=== PATIENT | male | born 1970 | race American Indian/Alaskan Native ===

== ENCOUNTER 2020-02-22 11:49 | Emergency (ER) | payer SELFPAY ==
--- NOTE | 2020-02-22 12:19 | Event Note ---
ED Screening Note Date of service: 02/22/20 Time: 12:16 ED Screening Note: 49-year-old male brought in states that he has dizziness x1 week. Denies any chest pain shortness of breathing no nausea no vomiting or abdominal pain. Admits to headache no blurred vision. This initial assessment/diagnostic orders/clinical plan/treatment(s) is/are subject to change based on patients health status, clinical progression and re- assessment by fellow clinical providers in the ED. Further treatment and workup at subsequent clinical providers discretion. Patient/guardian urged not to elope from the ED as their condition may be serious if not clinically assessed and managed. Initial orders include:
[2020-02-22 13:35] LABS: Basophils # (Auto) 0.1 K/mm3 (0.0-0.1); Basophils % (Auto) 1.2 % (0.0-1.8); Eosinophils # (Auto) 0.4 K/mm3 (0.0-0.4); Eosinophils % (Auto) 7.5 % (0.0-4.3); Hemoglobin 11.5 gm/dl (11.8-15.2); Lymphocytes # (Auto) 1.4 K/mm3 (1.2-5.4); Lymphocytes % (Auto) 29.4 % (13.4-35.0); Mean Corpuscular HGB Conc 33 % (32-34); Mean Corpuscular Volume 83 fl (84-94); Monocytes # (Auto) 0.5 K/mm3 (0.0-0.8); Monocytes % (Auto) 9.6 % (0.0-7.3); Platelet Count 229 K/mm3 (140-440); Red Blood Count 4.24 M/mm3 (3.65-5.03); Red Cell Distribution Width 13.5 % (13.2-15.2)
[2020-02-22 13:47] LABS: Albumin 4.3 g/dL (3.9-5); Calcium 8.8 mg/dL (8.4-10.2)
[2020-02-22] MEDS ORDERED: POTASSIUM CHLORIDE ER 20 MEQ TAB PO ONE ×2 (14:49→21:46)
[2020-02-22] MEDS ORDERED: HYDROcodone/ACETAMINOPHEN 5-325 MG TAB PO STA (15:07)
--- NOTE | 2020-02-22 15:19 | Emergency Department Report ---
ED Dizziness HPI - General Chief Complaint: Dizziness Stated Complaint: DIZZINESS,SICK Time Seen by Provider: 02/22/20 14:48 Source: patient Mode of arrival: Ambulatory Limitations: No Limitations - History of Present Illness Initial Comments: 49-year-old -[place] male past medical history of hypertension and end- stage renal disease requiring dialysis was last seen at dialysis today presents emergency department complaining of a dull throbbing bifrontal headache which is been present for the last week associated with dizziness acute. Reports no chest pain, no palpitations, no fever, chills, sweats, no nausea, no vomiting. He reports no scotomas. MD Complaint: dizziness Timing: sudden onset Description: "room spinning" History of Same: No History of Trauma: No Severity: mild, moderate Improves With: nothing Worsens With: nothing Associated Symptoms: denies: ataxia, chest pain, confusion, fever/chills, loss o f appetite, seizure, syncope, weakness - Related Data Previous Rx's Medication Instructions Recorded Last Taken Type carvediloL [Coreg] 6.25 mg PO BID #60 tablet 04/25/13 Unknown Rx Allergies Allergy/AdvReac Type Severity Reaction Status Date / Time No Known Allergies Allergy Unverified 04/20/13 09:48 ED Review of Systems ROS: Stated complaint: DIZZINESS,SICK Other details as noted in HPI Comment: All other systems reviewed and negative ED Past Medical Hx - Past Medical History Previous Medical History?: Yes Hx Hypertension: Yes Hx Congestive Heart Failure: No Hx Diabetes: No Hx Renal Disease: Yes (Dialysis (MWF)) Hx Asthma: No Hx COPD: No Additional medical history: Brugada Syndrome, ventral abdominal hernia - Surgical History Past Surgical History?: No - Social History Smoking Status: Never Smoker Substance Use Type: None - Medications Home Medications: Home Medications Medication Instructions Recorded Confirmed Last Taken Type carvediloL [Coreg] 6.25 mg PO BID #60 tablet 04/25/13 Unknown Rx ED Physical Exam - General Limitations: No Limitations General appearance: alert, in no apparent distress - Head Head exam: Present: atraumatic, normocephalic - Eye Eye exam: Present: normal appearance, PERRL, EOMI Pupils: Present: normal accommodation - ENT ENT exam: Present: normal exam, mucous membranes moist, normal external ear exam. Absent: normal orophraynx, mucous membranes dry - Neck Neck exam: Present: normal inspection, full ROM. Absent: tenderness - Respiratory Respiratory exam: Present: normal lung sounds bilaterally. Absent: respiratory distress, wheezes, rhonchi, stridor - Cardiovascular Cardiovascular Exam: Present: regular rate, normal rhythm. Absent: bradycardia, tachycardia, systolic murmur, diastolic murmur, rubs, gallop - GI/Abdominal GI/Abdominal exam: Present: soft, normal bowel sounds. Absent: distended, ten derness, guarding - Rectal Rectal exam: Present: deferred. Absent: normal inspection, normal rectal tone - Extremities Exam Extremities exam: Present: normal inspection - Back Exam Back exam: Present: normal inspection, full ROM, muscle spasm - Neurological Exam Neurological exam: Present: alert, oriented X3, CN II-XII intact - Psychiatric Psychiatric exam: Present: normal affect, normal mood - Skin Skin exam: Present: warm, dry, intact, normal color. Absent: rash ED Course Vital Signs 02/22/20 12:18 Temperature 97.8 F Pulse Rate 73 Respiratory 18 Rate Blood Pressure 141/80 O2 Sat by Pulse 97 Oximetry ED Medical Decision Making - Lab Data Result diagrams: 02/22/20 12:48 02/22/20 12:48 - Radiology Data [facility] [address] [place] [address] Cat Scan Report Signed Patient: CHRISTIE HENRIQUEZ MR#: [id number] 8 : 1970 Acct:[id number] Age/Sex: 49 / M ADM Date: 02/22/20 Loc: ED Attending Dr: Ordering Physician: ALEM PEREA Date of Service: 02/22/20 Procedure(s): CT head/brain wo con Accession Number(s): [id number] cc: ALEM PEREA CT head/brain wo con INDICATION / CLINICAL INFORMATION: 49 years Male; headache. TECHNIQUE: Routine CT head without contrast. All CT scans at this location are performed using CT dose reduction for ALARA by means of automated exposure control. COMPARISON: 04/20/2013 FINDINGS: BRAIN / INTRACRANIAL CONTENTS: Multiple, small lacunar infarcts seen in the anterior gangliocapsular regions. These findings are new from prior, but have a chronic appearance. It would be difficult to evaluate for a small focus of acute ischemia without diffusion imaging by MRI. Otherwise, no acute hemorrhage, mass effect, midline shift, hydrocephalus, or acute, large territorial infarct. No signs of significant atrophy or chronic infarct. Mild, nonspecific white matter disease noted, which has progressed from prior, as well. CRANIOCERVICAL JUNCTION: No significant abnormality. ORBITS: No significant abnormality of visualized orbits. SINUSES / MASTOIDS: Small air-fluid level seen in the right sphenoid sinus. Mild mucosal thickening seen in the ethmoids as well. ADDITIONAL FINDINGS: None. IMPRESSION: 1. Progression and white matter and gangliocapsular disease as described above. Follow-up with diffusion imaging by MRI, as clinically warranted. 2. Otherwise, no focal mass, hemorrhage, hydrocephalus, or acute, large infarct appreciated. Signer Name: Chris Guerra MD, III Signed: 02/22/2020 4:33 PM Workstation Name: [id number] Transcribed By: Dictated By: Chris Guerra MD Electronically Authenticated By: Chris Guerra MD Signed Date/Time: 02/22/20 163 DD/ 28 TD/TT: - Medical Decision Making This patient presents with a headache. Differential diagnosis includes migraine versus tension type headache. No headache red flags. Neurologic exam without evidence of meningismus, focal neurologic findings.Based on the patient's history and physical there is very low clinical suspicion for significant intracranial pathology. The headache was NOT sudden onset, NOT maximal at onset, there are NO neurologic findings, the patient does NOT have a fever, the patient does NOT have any jaw claudication, the patient does NOT endorse a clotting disorder, patient DENIES any trauma or eye pain and the headache is NOT associated with dizziness or ataxia. Presentation not consistent with acute intracranial bleed to include SAH (lack of risk factors, headache history). 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 Presentation not consistent with other acute, emergent causes of headache at this time. Plan to treat symptomatically with pain medication. No indication for imaging/LP at this time. Plan: pain medication, CT brain shows chronic infarct changes which may need further evaluation with an MRI at a later date. He remained neurologically stable and intact throughout his entire emergency department visit here today. No signs of any neurological deficit. I will provide him with a copy of his CT scan report and advised him explicitly the need to follow-up with neurology for further evaluation and treatment options but advised him to start with his primary care provider to guide and follow along with him in this process. Also advised him on the on the need for compliance with his dialysis. It is very likely this is a postdialysis headache him and post dialysis presyncope given the onset. Critical care attestation.: If time is entered above; I have spent that time in minutes in the direct care of this critically ill patient, excluding procedure time. ED Disposition Clinical Impression: Cephalgia Disposition: DC-01 TO HOME OR SELFCARE Is pt being admited?: No Does the pt Need Aspirin: No Condition: Stable Instructions: General Headache Without Cause Referrals: PRIMARY CARE, [Primary Care Provider] - 3-5 Days Forms: Work/School Release Form(ED)
--- NOTE | 2020-02-22 16:37 | Cat Scan Report ---
CT head/brain wo con INDICATION / CLINICAL INFORMATION: 49 years Male; headache. TECHNIQUE: Routine CT head without contrast. All CT scans at this location are performed using CT dos e reduction for ALARA by means of automated exposure control. COMPARISON: 04/20/2013 FINDINGS: BRAIN / INTRACRANIAL CONTENTS: Multiple, small lacunar infarcts seen in the anterior gangliocapsular regions. These findings are new from prior, but have a chronic appearance. It would be difficult to evaluate for a small focus of acute ischemia without diffusion imaging by MR I. Otherwise, no acute hemorrhage, mass effect, midline shift, hydrocephalus, or acute, large territori al infarct. No signs of significant atrophy or chronic infarct. Mild, nonspecific white matter diseas e noted, which has progressed from prior, as well. CRANIOCERVICAL JUNCTION: No significant abnormality. ORBITS: No significant abnormality of visualized orbits. SINUSES / MASTOIDS: Small air-fluid level seen in the right sphenoid sinus. Mild mucosal thickening s een in the ethmoids as well. ADDITIONAL FINDINGS: None. IMPRESSION: 1. Progression and white matter and gangliocapsular disease as described above. Follow-up with diffus ion imaging by MRI, as clinically warranted. 2. Otherwise, no focal mass, hemorrhage, hydrocephalus, or acute, large infarct appreciated. Signer Name: Chris Guerra MD, III Signed: 02/22/2020 4:33 PM Workstation Name: [id number]
[2020-02-23 01:45] VITALS: BP 132/70
== END 2020-02-22 21:59 | disposition home or self-care (01) ==
LOC: ED 11:49
DX: R51.9 Headache, unspecified (principal)
CPT/HCPCS: 36415; 70450; 80053; 85025; 93005

== ENCOUNTER 2021-08-16 22:11 | Inpatient (IN) | payer OTHER ==
--- NOTE | 2021-08-16 23:38 | Emergency Department Report ---
ED General Adult HPI - General Chief complaint: Dyspnea/Respdistress Stated complaint: SOB,COUGHING UP BLOOD PUI?: No Source: patient, EMS ( EMS documentation not available at time of chart dictation ), RN notes reviewed, old records reviewed Limitations: Physical Limitation - History of Present Illness Initial comments: Nephrology: Dr. Vonda Bangura The patient is a 50-year-old gentleman, with a history of end-stage renal disease on hemodialysis, Tuesday, Tuesday, Tuesday, DVT, currently on Eliquis, history of Brugada syndrome. Patient was last dialyzed on Tuesday. He presents to the ER today with a complaint of tongue bleeding, where he believes he accidentally bit his tongue, cough, wheezing and shortness of breath. He denies physical pain at this time. -: Gradual Consistency: constant Improves with: rest Worsens with: movement - Related Data Previous Rx's Medication Instructions Recorded Last Taken Type carvediloL [Coreg] 6.25 mg PO BID #60 tablet 04/25/13 Unknown Rx Allergies Allergy/AdvReac Type Severity Reaction Status Date / Time No Known Allergies Allergy Unverified 04/20/13 09:48 ED Review of Systems ROS: Stated complaint: SOB,COUGHING UP BLOOD Other details as noted in HPI Constitutional: denies: fever Eyes: denies: eye discharge ENT: congestion. denies: epistaxis Respiratory: cough, shortness of breath, wheezing Cardiovascular: edema. denies: chest pain Gastrointestinal: denies: abdominal pain, vomiting, hematemesis, melena, hematochezia Genitourinary: denies: dysuria Musculoskeletal: denies: back pain Neurological: weakness Hematological/Lymphatic: easy bleeding ED Past Medical Hx - Past Medical History Hx Hypertension: Yes Hx Congestive Heart Failure: No Hx Diabetes: No Hx Renal Disease: Yes (Dialysis (MWF)) Hx Asthma: No Hx COPD: No Additional medical history: Brugada Syndrome, ventral abdominal hernia - Social History Smoking Status: Never Smoker Substance Use Type: None - Medications Home Medications: Home Medications Medication Instructions Recorded Confirmed Last Taken Type carvediloL [Coreg] 6.25 mg PO BID #60 tablet 04/25/13 Unknown Rx ED Physical Exam - General Limitations: Physical Limitation General appearance: alert, anxious, in distress - Head Head exam: Present: atraumatic, normocephalic - Eye Eye exam: Present: normal appearance, EOMI. Absent: nystagmus - ENT ENT exam: Present: normal exam, normal orophraynx, mucous membranes moist, normal external ear exam, other (There is superficial bleeding noted to the dorsal aspect of the anterior) - Neck Neck exam: Present: normal inspection, full ROM. Absent: tenderness, meningismus - Respiratory Respiratory exam: Present: respiratory distress, wheezes, rales, rhonchi - Cardiovascular Cardiovascular Exam: Present: regular rate, normal rhythm, normal heart sounds, JVD. Absent: bradycardia, tachycardia, irregular rhythm, systolic murmur, diastolic murmur, rubs, gallop - GI/Abdominal GI/Abdominal exam: Present: soft, hernia. Absent: distended, tenderness, guarding, rebound, rigid - Rectal Rectal exam: Present: deferred - Extremities Exam Extremities exam: Present: normal inspection, full ROM, pedal edema, other (2+ pulses noted in the bilateral upper and lower extremities. There is no palpable cord. negative Homans sign. Muscular compartments are soft. The pelvis is stable.). Absent: calf tenderness - Back Exam Back exam: Present: normal inspection. Absent: tenderness, CVA tenderness (R), CVA tenderness (L), paraspinal tenderness, vertebral tenderness - Neurological Exam Neurological exam: Present: alert, oriented X3, other (No facial droop. Tongue midline. Extraocular movements intact bilaterally. Facial sensation intact to light touch in V1, V2, V3 distribution bilaterally. 5 and a 5 strength in 4 extremities. Sensation intact to light touch in 4 extremities.). Absent: motor sensory deficit - Psychiatric Psychiatric exam: Present: anxious - Skin Skin exam: Present: warm, dry, intact, normal color. Absent: rash ED Course Vital Signs 08/17/21 08/17/21 00:05 01:02 Temperature 99 F Pulse Rate 84 77 Respiratory 20 16 Rate Blood Pressure 180/110 Blood Pressure 194/114 [Left] O2 Sat by Pulse 98 100 Oximetry - Reevaluation(s) Reevaluation #1: 08/17/21 01:36 Differential diagnosis, including but not limited to: Flash pulmonary edema, end-stage renal disease on hemodialysis, anticoagulated, volume overload, hypertensive emergency Assessment and plan: 50-year-old gentleman, with JVD, lower extremity edema, crackles, rales, hypertensive urgency, likely flash pulmonary edema, and fluid overload. Start patient on nitroglycerin, as well as desmopressin. Patient spitting up blood from tongue, likely secondary to superficial bite on tongue, do not see obvious wound to suture, start desmopressin. Given this, would not start patient on BiPAP, but rather will start high flow high humidity nasal cannula. EKG reviewed and appreciated. Laboratory studies reviewed and appreciated. Elevated troponin is likely a type II troponin leak. Contacted covering nephrology Dr Bangura, and critical care, Dr. Valdivia Discussed the patient's history, physical, laboratory studies and imaging studi es and clinical impression. His vb net programmer will follow in consultation, and arrange for urgent he modialysis. Critical care will arrange for admission to the intensive care unit. High-dose Lasix ordered. Patient is agreeable to admission hospitalization. Hospital physician, Dr. Kohler to admit to [facility] Medical decision makin-year-old gentleman with evidence of fluid overload, hypertensive emergency, requires initiation of high flow high humidity nasal cannula, high-dose Lasix, nitroglycerin drip, urgent hemodialysis. 08/17/21 01:38 ED Medical Decision Making - Lab Data Result diagrams: 08/17/21 00:13 08/17/21 00:13 Labs 08/17/21 08/17/21 08/17/21 00:13 00:13 00:13 WBC 5.6 RBC 3.28 L Hgb 8.6 L Hct 27.5 L MCV 84 MCH 26 L MCHC 31 L RDW 20.7 H Plt Count 166 Lymph % (Auto) 8.8 L [place] % (Auto) 7.6 H Eos % (Auto) 2.3 Baso % (Auto) 1.1 Lymph # (Auto) 0.5 L [place] # (Auto) 0.4 Eos # (Auto) 0.1 Baso # (Auto) 0.1 Seg Neutrophils % 80.2 H Seg Neutrophils # 4.5 PT 14.1 INR 0.98 APTT 28.1 Albumin/Globulin Ratio 1.5 Lab Results 08/17/21 08/17/21 08/17/21 Range/Units 00:13 00:13 00:13 WBC 5.6 (4.5-11.0) K/mm3 RBC 3.28 L (3.65-5.03) M/mm3 Hgb 8.6 L (11.8-15.2) gm/dl Hct 27.5 L (35.5-45.6) % MCV 84 (84-94) fl MCH 26 L (28-32) pg MCHC 31 L (32-34) % RDW 20.7 H (13.2-15.2) % Plt Count 166 (140-440) K/mm3 Lymph % (Auto) 8.8 L (13.4-35.0) % [place] % (Auto) 7.6 H (0.0-7.3) % Eos % (Auto) 2.3 (0.0-4.3) % Baso % (Auto) 1.1 (0.0-1.8) % Lymph # (Auto) 0.5 L (1.2-5.4) K/mm3 [place] # (Auto) 0.4 (0.0-0.8) K/mm3 Eos # (Auto) 0.1 (0.0-0.4) K/mm3 Baso # (Auto) 0.1 (0.0-0.1) K/mm3 Seg Neutrophils % 80.2 H (40.0-70.0) % Seg Neutrophils # 4.5 (1.8-7.7) K/mm3 PT 14.1 (12.2-14.9) Sec. INR 0.98 (0.87-1.13) APTT 28.1 (24.2-36.6) Sec. Albumin/Globulin Ratio 1.5 % Vital Signs 08/17/21 00:05 Temperature 99 F Pulse Rate 84 Lab Results 08/17/21 08/17/21 08/17/21 Range/Units 00:13 00:13 00:13 WBC 5.6 (4.5-11.0) K/mm3 RBC 3.28 L (3.65-5.03) M/mm3 Hgb 8.6 L (11.8-15.2) gm/dl Hct 27.5 L (35.5-45.6) % MCV 84 (84-94) fl MCH 26 L (28-32) pg MCHC 31 L (32-34) % RDW 20.7 H (13.2-15.2) % Plt Count 166 (140-440) K/mm3 Lymph % (Auto) 8.8 L (13.4-35.0) % [place] % (Auto) 7.6 H (0.0-7.3) % Eos % (Auto) 2.3 (0.0-4.3) % Baso % (Auto) 1.1 (0.0-1.8) % Lymph # (Auto) 0.5 L (1.2-5.4) K/mm3 [place] # (Auto) 0.4 (0.0-0.8) K/mm3 Eos # (Auto) 0.1 (0.0-0.4) K/mm3 Baso # (Auto) 0.1 (0.0-0.1) K/mm3 Seg Neutrophils % 80.2 H (40.0-70.0) % Seg Neutrophils # 4.5 (1.8-7.7) K/mm3 PT 14.1 (12.2-14.9) Sec. INR 0.98 (0.87-1.13) APTT 28.1 (24.2-36.6) Sec. Sodium 132 L (137-145) mmol/L Potassium 3.6 (3.6-5.0) mmol/L Chloride 91.2 L (98-107) mmol/L Carbon Dioxide 24 (22-30) mmol/L Anion Gap 20 mmol/L BUN 44 H (9-20) mg/dL Creatinine 11.0 H (0.8-1.3) mg/dL Estimated GFR 6 ml/min BUN/Creatinine Ratio 4 % Glucose 89 (75-100) mg/dL Calcium 8.6 (8.4-10.2) mg/dL Magnesium 2.60 H (1.7-2.3) mg/dL Total Bilirubin 0.60 (0.1-1.2) mg/dL AST 13 (5-40) units/L ALT 12 (7-56) units/L Alkaline Phosphatase 152 H (35-129) units/L Total Creatine Kinase 329 H (55-170) units/L Troponin T 0.075 H (0.00-0.029) ng/mL Total Protein 6.9 (6.3-8.2) g/dL Albumin 4.1 (3.9-5) g/dL Albumin/Globulin Ratio 1.5 % - EKG Data -: EKG Interpreted by Ct EKG shows normal: sinus rhythm - EKG Data 08/17/21 00:56 The EKG is interpreted at 23: 58 Sinus rhythm, 77 bpm. Normal axis, normal P wave axis, PVCs, QTC 4 6 2 ms, IN interval, 210 ms. There is poor R wave progression. This is not a STEMI - Radiology Data Radiology results: pending, report reviewed, image reviewed CHEST 1 VIEW 08/16/2021 11:18 PM INDICATION / CLINICAL INFORMATION: Dyspnea. COMPARISON: 04/20/2013 FINDINGS: SUPPORT DEVICES: Left IJ catheter terminating in the mid SVC. HEART / MEDIASTINUM: There is cardiomegaly LUNGS / PLEURA: Pulmonary vascular indistinctness and cephalization. Increased interstitial prominence. There is increased opacification within the right lower lobe. No pneumothorax. ADDITIONAL FINDINGS: No significant additional findings. IMP RESSION: 1. Cardiomegaly with moderate severe pulmonary edema. 2. Opacification within the right lower lobe which may represent atelectasis versus infiltrate. Signer Name: Kirk Vizcaino DO Signed: 08/16/2021 11:21 PM Workstation Name: [id number] Critical Care Time: Yes Critical care time in (mins) excluding proc time.: 35 Critical care attestation.: If time is entered above; I have spent that time in minutes in the direct care of this critically ill patient, excluding procedure time. ED Disposition Clinical Impression: Hypertensive emergency, End stage renal disease, Pulmonary edema, Anticoagulated, Hemorrhage of tongue Disposition: ADMITTED INPATIENT Is pt being admited?: Yes Does the pt Need Aspirin: No Condition: Critical Instructions: Pulmonary Edema (ED), Hypertension (ED) Referrals: KATE GEIGER MD [Primary Care Provider] - 3-5 Days
--- NOTE | 2021-08-17 00:25 | XRay Report ---
CHEST 1 VIEW 08/16/2021 11:18 PM INDICATION / CLINICAL INFORMATION: Dyspnea. COMPARISON: 04/20/2013 FINDINGS: SUPPORT DEVICES: Left IJ catheter terminating in the mid SVC. HEART / MEDIASTINUM: There is cardiomegaly LUNGS / PLEURA: Pulmonary vascular indistinctness and cephalization. Increased interstitial prominenc e. There is increased opacification within the right lower lobe. No pneumothorax. ADDITIONAL FINDINGS: No significant additional findings. IMPRESSION: 1. Cardiomegaly with moderate severe pulmonary edema. 2. Opacification within the right lower lobe which may represent atelectasis versus infiltrate. Signer Name: Kirk Vizcaino DO Signed: 08/17/2021 12:21 AM Workstation Name: [id number]
[2021-08-17 00:39] LABS: Basophils # (Auto) 0.1 K/mm3 (0.0-0.1); Basophils % (Auto) 1.1 % (0.0-1.8); Eosinophils # (Auto) 0.1 K/mm3 (0.0-0.4); Eosinophils % (Auto) 2.3 % (0.0-4.3); Hematocrit 27.5 % (35.5-45.6); Hemoglobin 8.6 gm/dl (11.8-15.2); Lymphocytes # (Auto) 0.5 K/mm3 (1.2-5.4); Lymphocytes % (Auto) 8.8 % (13.4-35.0); Mean Corpuscular HGB Conc 31 % (32-34); Mean Corpuscular Volume 84 fl (84-94); Monocytes # (Auto) 0.4 K/mm3 (0.0-0.8); Monocytes % (Auto) 7.6 % (0.0-7.3); Platelet Count 166 K/mm3 (140-440); Red Blood Count 3.28 M/mm3 (3.65-5.03); Red Cell Distribution Width 20.7 % (13.2-15.2)
[2021-08-17 00:47] LABS: INR 0.98 (0.87-1.13); Partial Thromboplastin Time 28.1 Sec. (24.2-36.6)
[2021-08-17 00:55] LABS: Albumin 4.1 g/dL (3.9-5); Calcium 8.6 mg/dL (8.4-10.2)
[2021-08-17] MEDS ORDERED: FUROSEMIDE 40 MG/4 ML INJ IV ONE (01:09)
[2021-08-17] MEDS ORDERED: SODIUM CHLORIDE 0.9% IV ONE (01:10)
[2021-08-17] MEDS ORDERED: DESMOPRESSIN ACETATE IV ONE (01:10)
[2021-08-17] MEDS ORDERED: ALBUTEROL 2.5 MG/3 ML NEBU IH PRN (01:38)
[2021-08-17] MEDS ORDERED: ACETAMINOPHEN 325 MG TAB PO PRN (01:38)
[2021-08-17] MEDS ORDERED: MORPHINE 2 MG/1 ML INJ IV PRN (01:38)
[2021-08-17] MEDS ORDERED: HYDROmorphone 1 MG/1 ML INJ IV PRN (01:38)
[2021-08-17] MEDS ORDERED: ONDANSETRON 4 MG/2 ML INJ IV PRN (01:38)
[2021-08-17 02:00] LABS: Chol/HDL Ratio 1.59 %
[2021-08-17] MEDS: NITROGLYCERIN DRIP 50 MG/250 ML BOTTLE IV SCH (02:10)
--- NOTE | 2021-08-17 04:57 | History and Physical Report ---
History of Present Illness Date of examination: 08/17/21 Date of admission: 08/17/21 Chief complaint: Dyspnea Respiratory distress History of present illness: 50-year-old male history of end-stage renal disease on hemodialysis, Tuesday, Tuesday, Tuesday, DVT, currently on Eliquis, history of Brugada syndrome.Patient was last dialyzed on Tuesday. Patient was brought presents to the emergency room because of tongue bleeding, where he believes he accidentally bit his tongue, cough, wheezing and shortness of breath. In the emergency room patient is found to have pulmonary edema, hypertensive urgency. Patient is started on high flow nasal cannula. We consulted n ephrology for emergent dialysis. We also put the patient on nitro drip and Lasix high-dose. We consulted critical care for evaluation Past History Past Medical History: ESRD, renal failure, other (Brugada Syndrome, ventral abdominal hernia) Past Surgical History: No surgical history Social history: no significant social history Family history: hypertension Medications and Allergies Allergies Allergy/AdvReac Type Severity Reaction Status Date / Time No Known Allergies Allergy Unverified 04/20/13 09:48 Home Medications Medication Instructions Recorded Confirmed Last Taken Type carvediloL [Coreg] 6.25 mg PO BID #60 tablet 04/25/13 Unknown Rx Active Meds: Active Medications Acetaminophen (Acetaminophen 325 Mg Tab) 650 mg PO Q4H PRN PRN Reason: Pain MILD(1-3)/Fever >100.5/BOWER Albuterol (Albuterol 2.5 Mg/3 Ml Nebu) 2.5 mg IH Q3HRT PRN PRN Reason: Shortness Of Breath Albuterol/Ipratropium (Ipratropium/Albuterol Sulfate 3 Ml Ampul.Neb) 1 ampul IH Q6HRT KRISTIAN Carvedilol (Carvedilol 6.25 Mg Tab) 6.25 mg PO BID [facility] Famotidine (Famotidine 20 Mg/2 Ml Inj) 20 mg IV DAILY KRISTIAN Hydromorphone HCl (Hydromorphone 1 Mg/1 Ml Inj) 0.5 mg IV Q3H PRN PRN Reason: Pain , Severe (7-10) Nitroglycerin/Dextrose (Tridil Drip 50mg/250ml) 50 mg in 250 mls @ 3 mls/hr IV TITR KRISTIAN; Protocol Last Admin: 08/17/21 02:10 Dose: 10 mcg/min, 3 mls/hr Morphine Sulfate (Morphine 2 Mg/1 Ml Inj) 2 mg IV Q4H PRN PRN Reason: Pain, Moderate (4-6) Ondansetron HCl (Ondansetron 4 Mg/2 Ml Inj) 4 mg IV Q8H PRN PRN Reason: Nausea And Vomiting Sodium Chloride (Sodium Chloride 0.9% 10 Ml Flush Syringe) 10 ml IV BID KRISTIAN Sodium Chloride (Sodium Chloride 0.9% 10 Ml Flush Syringe) 10 ml IV PRN PRN PRN Reason: LINE FLUSH Review of Systems All systems: negative Constitutional: weakness Respiratory: cough, hemoptysis, shortness of breath, dyspnea on exertion, wheezing Exam - Constitutional Vitals: Temp Pulse Resp BP Pulse Ox 99 F 77 16 194/114 100 08/17/21 00:05 08/17/21 01:02 08/17/21 01:02 08/17/21 01:02 08/17/21 01:41 General appearance: Present: no acute distress, well-nourished - EENT Eyes: Present: PERRL ENT: hearing intact, clear oral mucosa - Neck Neck: Present: supple, normal ROM - Respiratory Respiratory effort: normal Respiratory: bilateral: diminished - Cardiovascular Heart Sounds: Present: S1 & S2. Absent: rub, click - Extremities Extremities: pulses symmetrical, No edema Peripheral Pulses: within normal limits - Abdominal General gastrointestinal: Present: soft, non-tender, non-distended, normal bowel sounds Male genitourinary: Present: normal - Integumentary Integumentary: Present: clear, warm, dry - Musculoskeletal Musculoskeletal: gait normal, strength equal bilaterally - Psychiatric Psychiatric: appropriate mood/affect, intact judgment & insight - Neurologic Neurologic: CNII-XII intact, moves all extremities HEART Score - HEART Score Troponin: Troponin T 0.075 ng/mL (0.00-0.029) H 08/17/21 00:13 Results - Labs CBC & Chem 7: 08/17/21 00:13 08/17/21 00:13 Labs: Laboratory Last Values WBC 5.6 K/mm3 (4.5-11.0) 08/17/21 00:13 RBC 3.28 M/mm3 (3.65-5.03) L 08/17/21 00:13 Hgb 8.6 gm/dl (11.8-15.2) L 08/17/21 00:13 Hct 27.5 % (35.5-45.6) L 08/17/21 00:13 MCV 84 fl (84-94) 08/17/21 00:13 MCH 26 pg (28-32) L 08/17/21 00:13 MCHC 31 % (32-34) L 08/17/21 00:13 RDW 20.7 % (13.2-15.2) H 08/17/21 00:13 Plt Count 166 K/mm3 (140-440) 08/17/21 00:13 Lymph % (Auto) 8.8 % (13.4-35.0) L 08/17/21 00:13 [place] % (Auto) 7.6 % (0.0-7.3) H 08/17/21 00:13 Eos % (Auto) 2.3 % (0.0-4.3) 08/17/21 00:13 Baso % (Auto) 1.1 % (0.0-1.8) 08/17/21 00:13 Lymph # (Auto) 0.5 K/mm3 (1.2-5.4) L 08/17/21 00:13 [place] # (Auto) 0.4 K/mm3 (0.0-0.8) 08/17/21 00:13 Eos # (Auto) 0.1 K/mm3 (0.0-0.4) 08/17/21 00:13 Baso # (Auto) 0.1 K/mm3 (0.0-0.1) 08/17/21 00:13 Seg Neutrophils % 80.2 % (40.0-70.0) H 08/17/21 00:13 Seg Neutrophils # 4.5 K/mm3 (1.8-7.7) 08/17/21 00:13 PT 14.1 Sec. (12.2-14.9) 08/17/21 00:13 INR 0.98 (0.87-1.13) 08/17/21 00:13 APTT 28.1 Sec. (24.2-36.6) 08/17/21 00:13 ABG pH 7.448 (7.320-7.450) 08/17/21 01:30 POC ABG pCO2 31.9 mmHg (32.0-48.0) L 08/17/21 01:30 POC ABG pO2 53.3 mmHg (83-108) L 08/17/21 01:30 POC ABG HCO3 21.6 08/17/21 01:30 ABG O2 Saturation 88.6 (0-100) 08/17/21 01:30 POC ABG Base Excess -1.8 08/17/21 01:30 ABG Hemoglobin 10.9 (12.0-17.5) L 08/17/21 01:30 ABG Oxyhemoglobin 87.9 (94-98) L 08/17/21 01:30 ABG Methemoglobin 0.3 (0.0-1.5) 08/17/21 01:30 ABG Sodium Not Reportable 08/17/21 01:30 ABG Potassium Not Reportable 08/17/21 01:30 ABG Chloride Not Reportable 08/17/21 01:30 ABG Glucose Not Reportable 08/17/21 01:30 Carboxyhemoglobin 0.5 (0.5-1.5) 08/17/21 01:30 FiO2 % 21.0 08/17/21 01:30 Sodium 132 mmol/L (137-145) L 08/17/21 00:13 Potassium 3.6 mmol/L (3.6-5.0) 08/17/21 00:13 Chloride 91.2 mmol/L (98-107) L 08/17/21 00:13 Carbon Dioxide 24 mmol/L (22-30) 08/17/21 00:13 Anion Gap 20 mmol/L 08/17/21 00:13 BUN 44 mg/dL (9-20) H 08/17/21 00:13 Creatinine 11.0 mg/dL (0.8-1.3) H 08/17/21 00:13 Estimated GFR 6 ml/min 08/17/21 00:13 BUN/Creatinine Ratio 4 % 08/17/21 00:13 Glucose 89 mg/dL (75-100) 08/17/21 00:13 Calcium 8.6 mg/dL (8.4-10.2) 08/17/21 00:13 Magnesium 2.60 mg/dL (1.7-2.3) H 08/17/21 00:13 Total Bilirubin 0.60 mg/dL (0.1-1.2) 08/17/21 00:13 AST 13 units/L (5-40) 08/17/21 00:13 ALT 12 units/L (7-56) 08/17/21 00:13 Alkaline Phosphatase 152 units/L (35-129) H 08/17/21 00:13 Total Creatine Kinase 329 units/L (55-170) H 08/17/21 00:13 Troponin T 0.075 ng/mL (0.00-0.029) H 08/17/21 00:13 NT-Pro-B Natriuret Pep 28518 pg/mL (0-450) H 08/17/21 00:13 Total Protein 6.9 g/dL (6.3-8.2) 08/17/21 00:13 Albumin 4.1 g/dL (3.9-5) 08/17/21 00:13 Albumin/Globulin Ratio 1.5 % 08/17/21 00:13 Triglycerides 46 mg/dL (2-149) 08/17/21 00:13 Cholesterol 140 mg/dL (50-199) 08/17/21 00:13 LDL Cholesterol Direct 40 mg/dL (50-130) L 08/17/21 00:13 HDL Cholesterol 88 mg/dL (40-59) H 08/17/21 00:13 Cholesterol/HDL Ratio 1.59 % 08/17/21 00:13 Arterial Blood Glucose Not Reportable 08/17/21 01:30 - Imaging and Cardiology Chest x-ray: report reviewed Assessment and Plan VTE prophylaxis?: Mechanical Plan of care discussed with patient/family: Yes - Patient Problems (1) Acute hypoxemic respiratory failure Current Visit: Yes Status: Acute Plan to address problem: Admit the patient to the ICU overnight. Oxygen per high flow nasal cannula. DuoNeb nebulizer every 4 hours. Albuterol via nebulizer every 4 hours as needed. Reconsult pulmonary and critical care for evaluation (2) End stage renal disease Current Visit: Yes Status: Acute Plan to address problem: We consulted nephro nephrology for urgent hemodialysis. Recheck BMP in the morning. Avoid nephrotoxic drug (3) Hemorrhage of tongue Current Visit: Yes Status: Acute Plan to address problem: Stable. We will monitor the patient closely (4) Hypertensive emergency Current Visit: Yes Status: Acute Plan to address problem: Patient is on nitro drip. Hydralazine 10 mg IV every 6 hours as needed. We continue the home medication (5) Pulmonary edema Current Visit: Yes Status: Acute Plan to address problem: Oxygen via high flow nasal cannula. Lasix 80 mg IV x1 dose. We consulted nephrology for urgent dialysis. Recheck BMP in the morning (6) Hypertension Current Visit: No Status: Acute Plan to address problem: Hydralazine 10 mg IV every 6 hours as needed. Patient is on nitro drip for elevated blood pressure. We monitor the blood pressure closely (7) DVT prophylaxis Current Visit: Yes Status: Acute Plan to address problem: SCD for DVT prophylaxis. Pepcid 20 mg IV every 12 hours for GI prophylaxis. Patient is a full code
[2021-08-17] MEDS: IPRATROPIUM/ALBUTEROL SULFATE 3 ML AMPUL.NEB IH SCH ×4 (06:47→20:23)
[2021-08-17] MEDS ORDERED: SODIUM CHLORIDE 0.9% 100 ML IV PRN (08:07)
[2021-08-17] MEDS ORDERED: EPOETIN ALFA-EPBX 20,000 UNIT/1 ML VIAL SUB-Q PRN (08:10)
[2021-08-17] MEDS ORDERED: HEPARIN 10,000 UNITS/10 ML VIAL IV PRN (08:10)
--- NOTE | 2021-08-17 08:13 | Consultation ---
History of Present Illness - Reason for Consult Consult date: 08/17/21 end stage renal disease - History of Present Illness The patient is a 60 YO male with history significant for Hypertension, DVT on Eliquis, Anemia, history of Brugada syndrome and ESRD on hemodialysis(MWF) who presented to [facility] ED 08/16/21 with c/o sob for 2 days. Associated symptoms include cough, orthopnea and wheezing. Patient also reports tongue bleeding, where he believes he accidentally bit his tongue. Admits to drinking excessive fluids. Patient denies any N, V, abd pain, fever, chills, rash, leg swelling, cp, dizziness, hemoptysis or weakness. He was last dialyzed 3 days ago. All lab and imaging studies reviewed. Patient is currently on HFNC O2. Nephrology consulted for treatment of ESRD and volume overload. Past History Past Medical History: anemia, dialysis, ESRD, hypertension, renal failure, other (Brugada Syndrome, ventral abdominal hernia) Past Surgical History: No surgical history Social history: no significant social history Family history: hypertension Medications and Allergies Allergies Allergy/AdvReac Type Severity Reaction Status Date / Time No Known Allergies Allergy Unverified 04/20/13 09:48 Home Medications Medication Instructions Recorded Confirmed Last Taken Type carvediloL [Coreg] 6.25 mg PO BID #60 tablet 04/25/13 08/18/21 Unknown Rx Clopidogrel [Plavix] 75 mg PO QDAY 08/17/21 08/17/21 Unknown History Doxazosin [Cardura] 4 mg PO BID 08/17/21 08/17/21 Unknown History Eliquis 5 mg PO BID 08/17/21 08/17/21 Unknown History Isosorbide Mononitrate [Isosorbide 60 mg PO QDAY 08/17/21 08/17/21 Unknown History Mononitrate ER] Nifedipine ER 90 mg PO QDAY 08/17/21 08/17/21 Unknown History hydrALAZINE 100 mg PO BID 08/17/21 08/17/21 Unknown History Active Meds: Active Medications Acetaminophen (Acetaminophen 325 Mg Tab) 650 mg PO Q4H PRN PRN Reason: Pain MILD(1-3)/Fever >100.5/BOWER Albuterol (Albuterol 2.5 Mg/3 Ml Nebu) 2.5 mg IH Q3HRT PRN PRN Reason: Shortness Of Breath Albuterol/Ipratropium (Ipratropium/Albuterol Sulfate 3 Ml Ampul.Neb) 1 ampul IH Q6HRT [facility] Last Admin: 08/17/21 08:05 Dose: 1 ampul Carvedilol (Carvedilol 6.25 Mg Tab) 6.25 mg PO BID [facility] Epoetin Bandar-epbx (Epoetin Bandar-Epbx 20,000 Unit/1 Ml Vial) 20,000 unit SUB-Q MUKUL PRN PRN Reason: hemodialysis Famotidine (Famotidine 20 Mg/2 Ml Inj) 20 mg IV DAILY [facility] Heparin Sodium (Porcine) (Heparin 10,000 Units/10 Ml Vial) 3,000 unit IV MUKUL PRN PRN Reason: hemodialysis Hydromorphone HCl (Hydromorphone 1 Mg/1 Ml Inj) 0.5 mg IV Q3H PRN PRN Reason: Pain , Severe (7-10) Nitroglycerin/Dextrose (Tridil Drip 50mg/250ml) 50 mg in 250 mls @ 3 mls/hr IV TITR [facility]; Protocol Last Admin: 08/17/21 02:10 Dose: 10 mcg/min, 3 mls/hr Sodium Chloride (Nacl 0.9%) 100 mls @ 999 mls/hr IV MUKUL PRN PRN Reason: Hypotension Morphine Sulfate (Morphine 2 Mg/1 Ml Inj) 2 mg IV Q4H PRN PRN Reason: Pain, Moderate (4-6) Ondansetron HCl (Ondansetron 4 Mg/2 Ml Inj) 4 mg IV Q8H PRN PRN Reason: Nausea And Vomiting Sodium Chloride (Sodium Chloride 0.9% 10 Ml Flush Syringe) 10 ml IV BID [facility] Sodium Chloride (Sodium Chloride 0.9% 10 Ml Flush Syringe) 10 ml IV PRN PRN PRN Reason: LINE FLUSH Review of Systems All systems: negative Exam - Vital Signs Vital signs: Vital Signs Temp Pulse Resp BP Pulse Ox 99 F 84 20 180/110 98 08/17/21 00:05 08/17/21 00:05 08/17/21 00:05 08/17/21 00:05 08/17/21 00:05 Results - Lab Results 08/19/21 04:53 08/19/21 04:53 Most recent lab results ABG pH 7.448 (7.320-7.450) 08/17/21 01:30 ABG O2 Saturation 88.6 (0-100) 08/17/21 01:30 Calcium 8.6 mg/dL (8.4-10.2) 08/17/21 00:13 Magnesium 2.60 mg/dL (1.7-2.3) H 08/17/21 00:13 Assessment and Plan 1. ESRD: Patient is on maintenance hemodialysis, MWF schedule. Last outpatient HD 08/14. Hemodialysis: today. 2. FEN: Volume overload, UF with HD, monitor. Counseled to limit fluid intake. Monitor lytes and volume status. 3. Acute hypoxic respiratory failure, POA: 2/2 Acute pulmonary edema in the setting of volume overload. R/o CHF. Echo. Volume control thru HD. Supplemental O2, wean as tolerated. 4. Suspected CHF: Clinical findings. Echo pending. 5. Hx of DVT: Eliquis. 6. Hypertension: Continue home meds. Volume control thru HD. Follow BP. 7. Anemia, POA: Chronic. Epogen with HD as needed. Monitor. 8. Hemorrhage from tongue, POA: Stable. We will monitor the patient closely 9. Brugada syndrome. Subjective: Patient was seen and examined at the bedside. Examination: General appearance: well-developed, appears stated age, thin built, resp distress noted, HFNC O2 HEENT: AMTT Neck: trachea midline Respiratory: bibasal rales heard Heart: S1S2, no murmur Abdomen: soft, bowel sounds heard, NT, no palpable mass Integumentary: no obvious rash Neurologic: AO, non-focal Ext: no edema Hemodialysis access: L arm AVF, R IJ tunnel catheter
[2021-08-17] MEDS: carvediloL 6.25 MG TAB PO SCH ×2 (09:59→21:47)
[2021-08-17] MEDS ORDERED: FAMOTIDINE 20 MG/2 ML INJ IV SCH ×2 (10:00)
--- NOTE | 2021-08-17 11:23 | Electrocardiograph Report ---
[facility] Test Date: 2021-08-16 Test Time: 23:58:10 Pat Name: CHRISTIE HENRIQUEZ Department: Room: A263 1 Gender: M Er Manager: KENNEDY : 1970 Requested By: LUKE LEZAMA Order Number: [id number] Reading MD: Jaycob Michael Measurements Intervals [place] Rate: 77 P: 58 DC: 210 QRS: 45 QRSD: 87 T: 47 QT: 406 QTc: 462 Interpretive Statements Sinus rhythm Ventricular premature complex nonspecific st-t No previous ECG available for comparison Electronically Signed On 08-17-2021 11:23:50 EDT by Jaycob Michael
--- NOTE | 2021-08-17 11:53 | Progress Note ---
Hospitalist Physical - Constitutional Vitals: Temp Pulse Resp BP Pulse Ox 99 F 86 24 191/111 98 08/17/21 00:05 08/17/21 10:00 08/17/21 10:00 08/17/21 09:59 08/17/21 10:00 General appearance: Present: no acute distress, well-nourished HEART Score - HEART Score Troponin: Troponin T 0.075 ng/mL (0.00-0.029) H 08/17/21 00:13 Results - Labs CBC & Chem 7: 08/17/21 00:13 08/17/21 00:13 Labs: Laboratory Last Values WBC 5.6 K/mm3 (4.5-11.0) 08/17/21 00:13 RBC 3.28 M/mm3 (3.65-5.03) L 08/17/21 00:13 Hgb 8.6 gm/dl (11.8-15.2) L 08/17/21 00:13 Hct 27.5 % (35.5-45.6) L 08/17/21 00:13 MCV 84 fl (84-94) 08/17/21 00:13 MCH 26 pg (28-32) L 08/17/21 00:13 MCHC 31 % (32-34) L 08/17/21 00:13 RDW 20.7 % (13.2-15.2) H 08/17/21 00:13 Plt Count 166 K/mm3 (140-440) 08/17/21 00:13 Lymph % (Auto) 8.8 % (13.4-35.0) L 08/17/21 00:13 [place] % (Auto) 7.6 % (0.0-7.3) H 08/17/21 00:13 Eos % (Auto) 2.3 % (0.0-4.3) 08/17/21 00:13 Baso % (Auto) 1.1 % (0.0-1.8) 08/17/21 00:13 Lymph # (Auto) 0.5 K/mm3 (1.2-5.4) L 08/17/21 00:13 [place] # (Auto) 0.4 K/mm3 (0.0-0.8) 08/17/21 00:13 Eos # (Auto) 0.1 K/mm3 (0.0-0.4) 08/17/21 00:13 Baso # (Auto) 0.1 K/mm3 (0.0-0.1) 08/17/21 00:13 Seg Neutrophils % 80.2 % (40.0-70.0) H 08/17/21 00:13 Seg Neutrophils # 4.5 K/mm3 (1.8-7.7) 08/17/21 00:13 PT 14.1 Sec. (12.2-14.9) 08/17/21 00:13 INR 0.98 (0.87-1.13) 08/17/21 00:13 APTT 28.1 Sec. (24.2-36.6) 08/17/21 00:13 ABG pH 7.448 (7.320-7.450) 08/17/21 01:30 POC ABG pCO2 31.9 mmHg (32.0-48.0) L 08/17/21 01:30 POC ABG pO2 53.3 mmHg (83-108) L 08/17/21 01:30 POC ABG HCO3 21.6 08/17/21 01:30 ABG O2 Saturation 88.6 (0-100) 08/17/21 01:30 POC ABG Base Excess -1.8 08/17/21 01:30 ABG Hemoglobin 10.9 (12.0-17.5) L 08/17/21 01:30 ABG Oxyhemoglobin 87.9 (94-98) L 08/17/21 01:30 ABG Methemoglobin 0.3 (0.0-1.5) 08/17/21 01:30 ABG Sodium Not Reportable 08/17/21 01:30 ABG Potassium Not Reportable 08/17/21 01:30 ABG Chloride Not Reportable 08/17/21 01:30 ABG Glucose Not Reportable 08/17/21 01:30 Carboxyhemoglobin 0.5 (0.5-1.5) 08/17/21 01:30 FiO2 % 21.0 08/17/21 01:30 Sodium 132 mmol/L (137-145) L 08/17/21 00:13 Potassium 3.6 mmol/L (3.6-5.0) 08/17/21 00:13 Chloride 91.2 mmol/L (98-107) L 08/17/21 00:13 Carbon Dioxide 24 mmol/L (22-30) 08/17/21 00:13 Anion Gap 20 mmol/L 08/17/21 00:13 BUN 44 mg/dL (9-20) H 08/17/21 00:13 Creatinine 11.0 mg/dL (0.8-1.3) H 08/17/21 00:13 Estimated GFR 6 ml/min 08/17/21 00:13 BUN/Creatinine Ratio 4 % 08/17/21 00:13 Glucose 89 mg/dL (75-100) 08/17/21 00:13 Calcium 8.6 mg/dL (8.4-10.2) 08/17/21 00:13 Magnesium 2.60 mg/dL (1.7-2.3) H 08/17/21 00:13 Total Bilirubin 0.60 mg/dL (0.1-1.2) 08/17/21 00:13 AST 13 units/L (5-40) 08/17/21 00:13 ALT 12 units/L (7-56) 08/17/21 00:13 Alkaline Phosphatase 152 units/L (35-129) H 08/17/21 00:13 Total Creatine Kinase 329 units/L (55-170) H 08/17/21 00:13 Troponin T 0.075 ng/mL (0.00-0.029) H 08/17/21 00:13 NT-Pro-B Natriuret Pep 44711 pg/mL (0-450) H 08/17/21 00:13 Total Protein 6.9 g/dL (6.3-8.2) 08/17/21 00:13 Albumin 4.1 g/dL (3.9-5) 08/17/21 00:13 Albumin/Globulin Ratio 1.5 % 08/17/21 00:13 Triglycerides 46 mg/dL (2-149) 08/17/21 00:13 Cholesterol 140 mg/dL (50-199) 08/17/21 00:13 LDL Cholesterol Direct 40 mg/dL (50-130) L 08/17/21 00:13 HDL Cholesterol 88 mg/dL (40-59) H 08/17/21 00:13 Cholesterol/HDL Ratio 1.59 % 08/17/21 00:13 Arterial Blood Glucose Not Reportable 08/17/21 01:30 Active Medications - Current Medications Current Medications: Generic Name Dose Route Start Last Admin Trade Name Freq PRN Reason Stop Dose Admin Acetaminophen 650 mg 08/17/21 01:38 Acetaminophen 325 Mg Tab PO Q4H PRN Pain MILD(1-3)/Fever >100.5/BOWER Albuterol 2.5 mg 08/17/21 01:38 Albuterol 2.5 Mg/3 Ml Nebu IH Q3HRT PRN Shortness Of Breath Albuterol/Ipratropium 1 ampul 08/17/21 02:00 08/17/21 08:05 Ipratropium/Albuterol Sulfate 3 Ml Ampul.Neb IH 1 ampul Q6HRT KRISTIAN Administration Carvedilol 6.25 mg 08/17/21 10:00 08/17/21 09:59 Carvedilol 6.25 Mg Tab PO 6.25 mg BID KRISTIAN Administration Epoetin Bandar-epbx 20,000 unit 08/17/21 08:10 Epoetin Bandar-Epbx 20,000 Unit/1 Ml Vial SUB-Q MUKUL PRN hemodialysis Famotidine 20 mg 08/17/21 10:00 08/17/21 10:00 Famotidine 20 Mg/2 Ml Inj IV 20 mg DAILY KRISTIAN Administration Heparin Sodium (Porcine) 3,000 unit 08/17/21 08:10 Heparin 10,000 Units/10 Ml Vial IV MUKUL PRN hemodialysis Hydromorphone HCl 0.5 mg 08/17/21 01:38 Hydromorphone 1 Mg/1 Ml Inj IV Q3H PRN Pain , Severe (7-10) Nitroglycerin/Dextrose 50 mg in 250 mls @ 3 mls/hr 08/17/21 02:00 08/17/21 02:10 Tridil Drip 50mg/250ml IV 10 mcg/min TITR KRISTIAN 3 mls/hr Administration Protocol 10 MCG/MIN Sodium Chloride 100 mls @ 999 mls/hr 08/17/21 08:07 Nacl 0.9% IV MUKUL PRN Hypotension Morphine Sulfate 2 mg 08/17/21 01:38 Morphine 2 Mg/1 Ml Inj IV Q4H PRN Pain, Moderate (4-6) Ondansetron HCl 4 mg 08/17/21 01:38 Ondansetron 4 Mg/2 Ml Inj IV Q8H PRN Nausea And Vomiting Sodium Chloride 10 ml 08/17/21 10:00 08/17/21 10:00 Sodium Chloride 0.9% 10 Ml Flush Syringe IV 10 ml BID KRISTIAN Administration Sodium Chloride 10 ml 08/17/21 01:38 Sodium Chloride 0.9% 10 Ml Flush Syringe IV PRN PRN LINE FLUSH
--- NOTE | 2021-08-17 12:29 | Consultation ---
History of Present Illness Consult date: 08/17/21 Reason for consult: dyspnea History of present illness: 50-year-old male history of end-stage renal disease on hemodialysis, Tuesday, Tuesday, Tuesday, DVT, currently on Eliquis, history of Brugada syndrome.Patient was last dialyzed on Tuesday. Patient was brought presents to the emergency room because of tongue bleeding, where he believes he accidentally bit his tongue, cough, wheezing and shortness of breath. Patient remains short of breath even though the bleeding from the tongue has resolved. In the emergency room patient is found to have pulmonary edema, hypertensive urgency. Patient is started on high flow nasal cannula. We consulted nephrology for emergent dialysis. We also put the patient on nitro drip and Lasix high-dose. We consulted critical care for evaluation Past History Past Medical History: ESRD, renal failure, other (Brugada Syndrome, ventral abdominal hernia) Past Surgical History: No surgical history, Other (AV fistula left arm) Social history: no significant social history Family history: hypertension Medications and Allergies Allergies Allergy/AdvReac Type Severity Reaction Status Date / Time No Known Allergies Allergy Unverified 04/20/13 09:48 Home Medications Medication Instructions Recorded Confirmed Last Taken Type carvediloL [Coreg] 6.25 mg PO BID #60 tablet 04/25/13 Unknown Rx Clopidogrel [Plavix] 75 mg PO QDAY 08/17/21 08/17/21 Unknown History Doxazosin [Cardura] 4 mg PO BID 08/17/21 08/17/21 Unknown History Eliquis 5 mg PO BID 08/17/21 08/17/21 Unknown History Isosorbide Mononitrate [Isosorbide 60 mg PO QDAY 08/17/21 08/17/21 Unknown History Mononitrate ER] Nifedipine ER 90 mg PO QDAY 08/17/21 08/17/21 Unknown History hydrALAZINE 100 mg PO BID 08/17/21 08/17/21 Unknown History Active Meds: Active Medications Acetaminophen (Acetaminophen 325 Mg Tab) 650 mg PO Q4H PRN PRN Reason: Pain MILD(1-3)/Fever >100.5/BOWER Albuterol (Albuterol 2.5 Mg/3 Ml Nebu) 2.5 mg IH Q3HRT PRN PRN Reason: Shortness Of Breath Albuterol/Ipratropium (Ipratropium/Albuterol Sulfate 3 Ml Ampul.Neb) 1 ampul IH Q6HRT [facility] Last Admin: 08/17/21 08:05 Dose: 1 ampul Carvedilol (Carvedilol 6.25 Mg Tab) 6.25 mg PO BID [facility] Last Admin: 08/17/21 09:59 Dose: 6.25 mg Epoetin Bandar-epbx (Epoetin Bandar-Epbx 20,000 Unit/1 Ml Vial) 20,000 unit SUB-Q MUKUL PRN PRN Reason: hemodialysis Famotidine (Famotidine 20 Mg/2 Ml Inj) 20 mg IV DAILY [facility] Last Admin: 08/17/21 10:00 Dose: 20 mg Heparin Sodium (Porcine) (Heparin 10,000 Units/10 Ml Vial) 3,000 unit IV MUKUL PRN PRN Reason: hemodialysis Hydralazine HCl (Hydralazine 25 Mg Tab) 50 mg PO Q8HR [facility] Hydromorphone HCl (Hydromorphone 1 Mg/1 Ml Inj) 0.5 mg IV Q3H PRN PRN Reason: Pain , Severe (7-10) Nitroglycerin/Dextrose (Tridil Drip 50mg/250ml) 50 mg in 250 mls @ 3 mls/hr IV TITR [facility]; Protocol Last Admin: 08/17/21 02:10 Dose: 10 mcg/min, 3 mls/hr Sodium Chloride (Nacl 0.9%) 100 mls @ 999 mls/hr IV MUKUL PRN PRN Reason: Hypotension Morphine Sulfate (Morphine 2 Mg/1 Ml Inj) 2 mg IV Q4H PRN PRN Reason: Pain, Moderate (4-6) Ondansetron HCl (Ondansetron 4 Mg/2 Ml Inj) 4 mg IV Q8H PRN PRN Reason: Nausea And Vomiting Sodium Chloride (Sodium Chloride 0.9% 10 Ml Flush Syringe) 10 ml IV BID [facility] Last Admin: 08/17/21 10:00 Dose: 10 ml Sodium Chloride (Sodium Chloride 0.9% 10 Ml Flush Syringe) 10 ml IV PRN PRN PRN Reason: LINE FLUSH Review of Systems All systems: negative Ears, nose, mouth and throat: other (Blood from the tongue) Cardiovascular: orthopnea, shortness of breath Respiratory: shortness of breath, dyspnea on exertion Physical Examination Vital signs: Vital Signs Temp Pulse Resp BP Pulse Ox 99 F 84 20 180/110 98 08/17/21 00:05 08/17/21 00:05 08/17/21 00:05 08/17/21 00:05 08/17/21 00:05 General appearance: no acute distress, alert, appears uncomfortable Eyes: non-icteric ENT: oropharynx moist Neck: supple, JVD Ascultation: Bilateral: rales (At basis) Cardiovascular: regular rate and rhythm Gastrointestinal: normoactive bowel sounds, soft, non-tender Extremities: no cyanosis normal mental status mood appropriate Results - Laboratory Findings CBC and BMP: 08/17/21 00:13 08/17/21 00:13 ABG ABG pH 7.448 (7.320-7.450) 08/17/21 01:30 POC ABG pCO2 31.9 mmHg (32.0-48.0) L 08/17/21 01:30 POC ABG pO2 53.3 mmHg (83-108) L 08/17/21 01:30 POC ABG HCO3 21.6 08/17/21 01:30 ABG O2 Saturation 88.6 (0-100) 08/17/21 01:30 PT/INR, D-dimer PT 14.1 Sec. (12.2-14.9) 08/17/21 00:13 INR 0.98 (0.87-1.13) 08/17/21 00:13 Abnormal lab findings: Abnormal Labs 08/17/21 08/17/21 08/17/21 00:13 00:13 01:30 RBC 3.28 L Hgb 8.6 L Hct 27.5 L MCH 26 L MCHC 31 L RDW 20.7 H Lymph % (Auto) 8.8 L [place] % (Auto) 7.6 H Lymph # (Auto) 0.5 L Seg Neutrophils % 80.2 H POC ABG pCO2 31.9 L POC ABG pO2 53.3 L ABG Hemoglobin 10.9 L ABG Oxyhemoglobin 87.9 L Sodium 132 L Chloride 91.2 L BUN 44 H Creatinine 11.0 H Magnesium 2.60 H Alkaline Phosphatase 152 H Total Creatine Kinase 329 H Troponin T 0.075 H NT-Pro-B Natriuret Pep 92190 H LDL Cholesterol Direct 40 L HDL Cholesterol 88 H - Diagnostic Findings Chest x-ray: image reviewed (Cardiomegaly and pulmonary edema Vas-Cath/permacath in the left chest) Assessment and Plan Impression: Acute hypoxic respiratory failure Acute pulmonary edema secondary to volume overload rule out underlying CHF Rule out congestive heart failure End-stage renal disease on hemodialysis for 2 years Hypertension History of DVT on anticoagulants Recommendation: Emergent hemodialysis recommended with removal of fluid. Continue with supplemental oxygen We will closely monitor. Consider echocardiogram very possible congestive heart failure Total critical care time 31-minute
[2021-08-17] MEDS: hydrALAZINE 25 MG TAB PO SCH ×2 (14:08→21:48)
[2021-08-17 15:13] LABS: Hepatitis B Surface Antigen Non-Reactive (Negative); Hepatitis C Virus Antibody Non-Reactive (NonReactive)
--- NOTE | 2021-08-17 17:44 | Event Note ---
<PRAMOD ROMEO - Last Filed: 08/17/21 17:52> Date: 08/17/21 This is a 50-year-old male with known past medical history of ESRD on HD(M,W,F), DVT on Eliquis, Brugada syndromed, and per patient O2 dependet at home admitted for pulmonary edema and hypertensive urgency Patient seen and examined at the bedside. Patient is fully AAO, on HHFL at 40% and 20L SPO2 above 92%. Patient still with dyspnea with exertion, plan for HD today per Nephrology. Oral bleeding resolved, H&H remains strable, will resume home AC- Eliquis. Left upper chest Permacath and LUE Av-fistula noted, per patient plan was to remove permacath two weeks ago however appointment was rescheduled due to unforeseen events. D/w Nephro plan for possible permacath removal sometimes this week. Patient remains on Nitro gtt, still hypertensive this am. Will resume patient's home antihypertensive regimen. Titrate Nitro gtt for SBP less than 160. CCM is also following. Diagnosis and plan of care discussed with patient at the bedside. Patient verbalized understanding and agreed with current plan of care. All questions and concerns addressed at this time. Team will continue to f/u with any further updates. <HEMANTH LOPEZ - Last Filed: 08/18/21 07:36> I saw and evaluated the patient. I agree with the findings and the plan of care as documented in the Nurse Practitioner's~note, with the following corrections and additions.
[2021-08-17] MEDS: hydrALAZINE 20 MG/1 ML INJ IV PRN (18:34)
[2021-08-17] MEDS: DOXAZOSIN 4 MG TAB PO SCH (21:46)
[2021-08-17] MEDS: APIXABAN 5 MG TAB PO SCH (21:46)
[2021-08-17 23:58] LABS: INR 1.07 (0.87-1.13)
[2021-08-17 23:59] LABS: Partial Thromboplastin Time 30.8 Sec. (24.2-36.6)
[2021-08-18] MEDS: NITROGLYCERIN DRIP 50 MG/250 ML BOTTLE IV SCH (00:27)
[2021-08-18] MEDS: IPRATROPIUM/ALBUTEROL SULFATE 3 ML AMPUL.NEB IH SCH ×2 (01:35→08:43)
[2021-08-18 05:20] LABS: Basophils # (Auto) 0.1 K/mm3 (0.0-0.1); Eosinophils # (Auto) 0.2 K/mm3 (0.0-0.4); Eosinophils % (Auto) 5.9 % (0.0-4.3); Monocytes # (Auto) 0.3 K/mm3 (0.0-0.8); Monocytes % (Auto) 8.3 % (0.0-7.3)
[2021-08-18 05:25] LABS: Basophils % (Auto) 0.9 % (0.0-1.8); Hematocrit 22.2 % (35.5-45.6); Hemoglobin 7.2 gm/dl (11.8-15.2); Lymphocytes # (Auto) 0.7 K/mm3 (1.2-5.4); Lymphocytes % (Auto) 15.2 % (13.4-35.0); Mean Corpuscular HGB Conc 33 % (32-34); Mean Corpuscular Volume 83 fl (84-94); Platelet Count 124 K/mm3 (140-440); Red Blood Count 2.69 M/mm3 (3.65-5.03)
[2021-08-18 05:27] LABS: Red Cell Distribution Width 20.4 % (13.2-15.2)
[2021-08-18 05:33] LABS: Calcium 8.4 mg/dL (8.4-10.2)
[2021-08-18] MEDS: hydrALAZINE 25 MG TAB PO SCH ×4 (06:10→23:21)
--- NOTE | 2021-08-18 08:06 | Progress Note ---
Assessment and Plan 1. ESRD: Patient is on maintenance hemodialysis, MWF schedule. Last outpatient HD 08/14. Hemodialysis: 08/17. 2. FEN: Volume overload, UF with HD, monitor. Counseled to limit fluid intake. Monitor lytes and volume status. 3. Acute hypoxic respiratory failure, POA: 2/2 Acute pulmonary edema in the setting of volume overload. Echo with normal EF. Volume control thru HD. Supplemental O2, weaned to NC O2. Improving. 4. Hx of DVT. 5. Hypertension: Continue home meds. Volume control thru HD. Follow BP. 6. Anemia, POA: Chronic. Epogen with HD. Monitor. 7. Hemorrhage from tongue, POA: Stable. Monitor. 8. Brugada syndrome. Subjective: Patient was seen and examined at the bedside. Doing better. Examination: General appearance: well-developed, appears stated age, thin built, no distress noted, NC O2 HEENT: MATT Neck: trachea midline Respiratory: ctab Heart: S1S2, no murmur Abdomen: soft, bowel sounds heard, NT, no palpable mass Integumentary: no obvious rash Neurologic: AO, non-focal Ext: no edema Hemodialysis access: L arm AVF, L IJ tunnel catheter Subjective Date of service: 08/18/21 Objective - Vital Signs Vital signs: Vital Signs - 12hr 08/17/21 08/17/21 08/17/21 20:10 20:20 20:24 Pulse Rate 78 78 Pulse Rate [ 81 Anterior Bilateral Throughout] Pulse Rate [ From Monitor] Respiratory 22 25 H Rate Respiratory 22 Rate [Anterior Bilateral Throughout] Blood Pressure 143/76 144/74 O2 Sat by Pulse 99 98 Oximetry 08/17/21 08/17/21 08/17/21 20:30 20:40 20:50 Pulse Rate 77 83 81 Pulse Rate [ Anterior Bilateral Throughout] Pulse Rate [ From Monitor] Respiratory 22 25 H 27 H Rate Respiratory Rate [Anterior Bilateral Throughout] Blood Pressure 143/80 143/80 154/85 O2 Sat by Pulse 98 100 99 Oximetry 08/17/21 08/17/21 08/17/21 21:00 21:10 21:20 Pulse Rate 86 83 90 Pulse Rate [ Anterior Bilateral Throughout] Pulse Rate [ From Monitor] Respiratory 25 H 28 H 18 Rate Respiratory Rate [Anterior Bilateral Throughout] Blood Pressure 154/85 156/93 172/104 O2 Sat by Pulse 94 99 97 Oximetry 08/17/21 08/17/21 08/17/21 21:30 21:40 21:46 Pulse Rate 90 99 H 91 H Pulse Rate [ Anterior Bilateral Throughout] Pulse Rate [ From Monitor] Respiratory 18 20 Rate Respiratory Rate [Anterior Bilateral Throughout] Blood Pressure 180/105 180/105 173/97 O2 Sat by Pulse 95 93 Oximetry 08/17/21 08/17/21 08/17/21 21:47 21:48 21:50 Pulse Rate 94 H 94 H 96 H Pulse Rate [ Anterior Bilateral Throughout] Pulse Rate [ From Monitor] Respiratory 19 Rate Respiratory Rate [Anterior Bilateral Throughout] Blood Pressure 173/97 173/97 173/97 O2 Sat by Pulse 95 Oximetry 08/17/21 08/17/21 08/17/21 22:00 22:10 22:14 Pulse Rate 94 H 90 89 Pulse Rate [ Anterior Bilateral Throughout] Pulse Rate [ From Monitor] Respiratory 16 18 21 Rate Respiratory Rate [Anterior Bilateral Throughout] Blood Pressure 185/104 185/104 185/104 O2 Sat by Pulse 87 92 93 Oximetry 08/17/21 08/17/21 08/17/21 22:20 22:30 22:40 Pulse Rate 89 87 90 Pulse Rate [ Anterior Bilateral Throughout] Pulse Rate [ From Monitor] Respiratory 20 18 31 H Rate Respiratory Rate [Anterior Bilateral Throughout] Blood Pressure 188/99 179/100 179/100 O2 Sat by Pulse 92 90 96 Oximetry 08/17/21 08/17/21 08/17/21 22:50 23:00 23:10 Pulse Rate 85 87 85 Pulse Rate [ Anterior Bilateral Throughout] Pulse Rate [ From Monitor] Respiratory 25 H 29 H 18 Rate Respiratory Rate [Anterior Bilateral Throughout] Blood Pressure 168/98 163/102 163/102 O2 Sat by Pulse 98 97 97 Oximetry 08/17/21 08/17/21 08/17/21 23:20 23:30 23:41 Pulse Rate 83 79 77 Pulse Rate [ Anterior Bilateral Throughout] Pulse Rate [ From Monitor] Respiratory 23 36 H 26 H Rate Respiratory Rate [Anterior Bilateral Throughout] Blood Pressure 157/83 155/82 O2 Sat by Pulse 99 95 100 Oximetry 08/17/21 08/18/21 08/18/21 23:51 00:00 00:11 Pulse Rate 77 75 75 Pulse Rate [ Anterior Bilateral Throughout] Pulse Rate [ From Monitor] Respiratory 21 25 H 19 Rate Respiratory Rate [Anterior Bilateral Throughout] Blood Pressure 158/81 144/80 144/80 O2 Sat by Pulse 98 96 100 Oximetry 08/18/21 08/18/21 08/18/21 00:21 00:31 00:41 Pulse Rate 77 74 75 Pulse Rate [ Anterior Bilateral Throughout] Pulse Rate [ From Monitor] Respiratory 14 20 20 Rate Respiratory Rate [Anterior Bilateral Throughout] Blood Pressure 167/97 162/94 162/94 O2 Sat by Pulse 100 96 99 Oximetry 08/18/21 08/18/21 08/18/21 00:51 01:00 01:11 Pulse Rate 77 82 77 Pulse Rate [ Anterior Bilateral Throughout] Pulse Rate [ From Monitor] Respiratory 23 20 23 Rate Respiratory Rate [Anterior Bilateral Throughout] Blood Pressure 168/97 160/100 160/100 O2 Sat by Pulse 89 85 91 Oximetry 08/18/21 08/18/21 08/18/21 01:21 01:30 01:41 Pulse Rate 74 71 81 Pulse Rate [ Anterior Bilateral Throughout] Pulse Rate [ From Monitor] Respiratory 19 16 16 Rate Respiratory Rate [Anterior Bilateral Throughout] Blood Pressure 173/100 152/87 152/87 O2 Sat by Pulse 95 97 99 Oximetry 08/18/21 08/18/21 08/18/21 01:51 02:00 02:11 Pulse Rate 75 75 75 Pulse Rate [ Anterior Bilateral Throughout] Pulse Rate [ From Monitor] Respiratory 17 20 20 Rate Respiratory Rate [Anterior Bilateral Throughout] Blood Pressure 160/91 157/88 157/88 O2 Sat by Pulse 100 96 100 Oximetry 08/18/21 08/18/21 08/18/21 02:21 02:30 02:41 Pulse Rate 75 74 75 Pulse Rate [ Anterior Bilateral Throughout] Pulse Rate [ From Monitor] Respiratory 20 21 20 Rate Respiratory Rate [Anterior Bilateral Throughout] Blood Pressure 152/90 154/89 154/89 O2 Sat by Pulse 100 97 100 Oximetry 08/18/21 08/18/21 08/18/21 02:51 03:00 03:11 Pulse Rate 76 74 74 Pulse Rate [ Anterior Bilateral Throughout] Pulse Rate [ From Monitor] Respiratory 20 22 20 Rate Respiratory Rate [Anterior Bilateral Throughout] Blood Pressure 156/94 164/90 164/90 O2 Sat by Pulse 99 86 99 Oximetry 08/18/21 08/18/21 08/18/21 03:21 03:31 03:41 Pulse Rate 75 76 76 Pulse Rate [ Anterior Bilateral Throughout] Pulse Rate [ From Monitor] Respiratory 22 18 Rate Respiratory Rate [Anterior Bilateral Throughout] Blood Pressure 155/87 160/86 160/86 O2 Sat by Pulse 99 95 98 Oximetry 08/18/21 08/18/21 08/18/21 03:51 04:00 04:11 Pulse Rate 82 72 78 Pulse Rate [ Anterior Bilateral Throughout] Pulse Rate [ 73 From Monitor] Respiratory 15 19 21 Rate Respiratory Rate [Anterior Bilateral Throughout] Blood Pressure 172/98 176/97 176/97 O2 Sat by Pulse 100 97 100 Oximetry 08/18/21 08/18/21 08/18/21 04:21 04:30 04:41 Pulse Rate 77 78 79 Pulse Rate [ Anterior Bilateral Throughout] Pulse Rate [ From Monitor] Respiratory 22 Rate Respiratory Rate [Anterior Bilateral Throughout] Blood Pressure 168/91 165/100 165/100 O2 Sat by Pulse 96 91 95 Oximetry 08/18/21 08/18/21 08/18/21 04:51 05:00 05:11 Pulse Rate 77 78 74 Pulse Rate [ Anterior Bilateral Throughout] Pulse Rate [ From Monitor] Respiratory 23 Rate Respiratory Rate [Anterior Bilateral Throughout] Blood Pressure 173/99 169/100 169/100 O2 Sat by Pulse 100 97 100 Oximetry 08/18/21 08/18/21 08/18/21 05:21 05:30 05:41 Pulse Rate 81 74 78 Pulse Rate [ Anterior Bilateral Throughout] Pulse Rate [ From Monitor] Respiratory 22 20 Rate Respiratory Rate [Anterior Bilateral Throughout] Blood Pressure 168/98 160/82 160/82 O2 Sat by Pulse 91 86 93 Oximetry 08/18/21 08/18/21 08/18/21 05:51 06:00 06:10 Pulse Rate 88 79 76 Pulse Rate [ Anterior Bilateral Throughout] Pulse Rate [ From Monitor] Respiratory 21 19 Rate Respiratory Rate [Anterior Bilateral Throughout] Blood Pressure 166/89 162/100 162/100 O2 Sat by Pulse 91 84 Oximetry 08/18/21 08/18/21 08/18/21 06:11 06:21 06:31 Pulse Rate 76 77 72 Pulse Rate [ Anterior Bilateral Throughout] Pulse Rate [ From Monitor] Respiratory 21 19 Rate Respiratory Rate [Anterior Bilateral Throughout] Blood Pressure 162/100 164/101 166/92 O2 Sat by Pulse 88 98 97 Oximetry 08/18/21 08/18/21 08/18/21 06:41 06:51 07:01 Pulse Rate 75 74 78 Pulse Rate [ Anterior Bilateral Throughout] Pulse Rate [ From Monitor] Respiratory 20 22 24 Rate Respiratory Rate [Anterior Bilateral Throughout] Blood Pressure 166/92 168/101 167/103 O2 Sat by Pulse 98 100 98 Oximetry - Lab 08/19/21 04:53 08/19/21 04:53 Most recent lab results ABG pH 7.448 (7.320-7.450) 08/17/21 01:30 ABG O2 Saturation 88.6 (0-100) 08/17/21 01:30 Calcium 8.4 mg/dL (8.4-10.2) 08/18/21 04:47 Magnesium 2.60 mg/dL (1.7-2.3) H 08/17/21 00:13 Medications & Allergies - Medications Allergies/Adverse Reactions: Allergies No Known Allergies Allergy (Unverified 04/20/13 09:48) Home Medications: Home Medications Medication Instructions Recorded Confirmed Last Taken Type carvediloL [Coreg] 6.25 mg PO BID #60 tablet 04/25/13 08/18/21 Unknown Rx Clopidogrel [Plavix] 75 mg PO QDAY 08/17/21 08/17/21 Unknown History Doxazosin [Cardura] 4 mg PO BID 08/17/21 08/17/21 Unknown History Eliquis 5 mg PO BID 08/17/21 08/17/21 Unknown History Isosorbide Mononitrate [Isosorbide 60 mg PO QDAY 08/17/21 08/17/21 Unknown History Mononitrate ER] Nifedipine ER 90 mg PO QDAY 08/17/21 08/17/21 Unknown History hydrALAZINE 100 mg PO BID 08/17/21 08/17/21 Unknown History Active Medications: Generic Name Dose Route Start Last Admin Trade Name Freq PRN Reason Stop Dose Admin Acetaminophen 650 mg 08/17/21 01:38 Acetaminophen 325 Mg Tab PO Q4H PRN Pain MILD(1-3)/Fever >100.5/BOWRE Albuterol 2.5 mg 08/17/21 01:38 Albuterol 2.5 Mg/3 Ml Nebu IH Q3HRT PRN Shortness Of Breath Albuterol/Ipratropium 1 ampul 08/17/21 02:00 08/18/21 01:35 Ipratropium/Albuterol Sulfate 3 Ml Ampul.Neb IH Not Given Q6HRT [facility] Apixaban 5 mg 08/17/21 22:00 08/17/21 21:46 Apixaban 5 Mg Tab PO 5 mg Q12HR [facility] Administration Protocol Carvedilol 6.25 mg 08/17/21 10:00 08/17/21 21:47 Carvedilol 6.25 Mg Tab PO 6.25 mg BID [facility] Administration Doxazosin Mesylate 4 mg 08/17/21 22:00 08/17/21 21:46 Doxazosin 4 Mg Tab PO 4 mg BID [facility] Administration Epoetin Bandar-epbx 20,000 unit 08/17/21 08:10 Epoetin Bandar-Epbx 20,000 Unit/1 Ml Vial SUB-Q MUKUL PRN hemodialysis Famotidine 20 mg 08/17/21 10:00 08/17/21 10:00 Famotidine 20 Mg/2 Ml Inj IV 20 mg DAILY [facility] Administration Heparin Sodium (Porcine) 3,000 unit 08/17/21 08:10 Heparin 10,000 Units/10 Ml Vial IV MUKUL PRN hemodialysis Hydralazine HCl 50 mg 08/17/21 14:00 08/18/21 06:10 Hydralazine 25 Mg Tab PO 50 mg Q8HR [facility] Administration Hydralazine HCl 10 mg 08/17/21 18:21 08/17/21 18:34 Hydralazine 20 Mg/1 Ml Inj IV 10 mg Q4HR PRN Administration Hypertension Hydromorphone HCl 0.5 mg 08/17/21 01:38 Hydromorphone 1 Mg/1 Ml Inj IV Q3H PRN Pain , Severe (7-10) Nitroglycerin/Dextrose 50 mg in 250 mls @ 3 mls/hr 08/17/21 02:00 08/18/21 07:52 Tridil Drip 50mg/250ml IV 0 mcg/min TITR [facility] 0 mls/hr Titration Protocol 10 MCG/MIN Sodium Chloride 100 mls @ 999 mls/hr 08/17/21 08:07 Nacl 0.9% IV MUKUL PRN Hypotension Isosorbide Mononitrate 60 mg 08/18/21 10:00 Isosorbide Mononitrate Er 60 Mg Tab PO QDAY [facility] Morphine Sulfate 2 mg 08/17/21 01:38 Morphine 2 Mg/1 Ml Inj IV Q4H PRN Pain, Moderate (4-6) Nifedipine 90 mg 08/18/21 10:00 Nifedipine Xl 90 Mg Tab PO QDAY [facility] Ondansetron HCl 4 mg 08/17/21 01:38 Ondansetron 4 Mg/2 Ml Inj IV Q8H PRN Nausea And Vomiting Sodium Chloride 10 ml 08/17/21 10:00 08/17/21 21:49 Sodium Chloride 0.9% 10 Ml Flush Syringe IV 10 ml BID [facility] Administration Sodium Chloride 10 ml 08/17/21 01:38 Sodium Chloride 0.9% 10 Ml Flush Syringe IV PRN PRN LINE FLUSH
[2021-08-18] MEDS: hydrALAZINE 20 MG/1 ML INJ IV PRN (08:17)
[2021-08-18] MEDS: carvediloL 6.25 MG TAB PO SCH ×2 (09:12→22:27)
[2021-08-18] MEDS: FAMOTIDINE 20 MG TAB PO SCH (09:12)
[2021-08-18] MEDS: DOXAZOSIN 4 MG TAB PO SCH ×2 (09:12→22:26)
[2021-08-18] MEDS: NIFEdipine XL 90 MG TAB PO SCH (09:12)
[2021-08-18] MEDS: APIXABAN 5 MG TAB PO SCH ×2 (09:12→22:27)
--- NOTE | 2021-08-18 09:14 | Progress Note ---
<PRAMOD ROMEO - Last Filed: 08/18/21 16:21> Assessment and Plan Assessment and plan: This is a 50-year-old male with known past medical history of ESRD on HD(M,W,F), DVT on Eliquis, Brugada syndrome, HTN, PR s/p stent placement, and COPD, O2 dependent at home admitted for pulmonary edema and hypertensive urgency. Hospital Course to Date: 08/17: Patient seen and examined at the bedside. Patient is fully AAO, on HHFL at 40% and 20L SPO2 above 92%. Patient still with dyspnea with exertion, plan for HD today per Nephrology. Oral bleeding resolved, H&H remains strable, will resume home AC- Eliquis. Left upper chest Permacath and LUE Av-fistula noted, per patient plan was to remove permacath two weeks ago however appointment was rescheduled due to unforeseen events. D/w Nephro plan for possible permacath removal sometimes this week. Patient remains on Nitro gtt, still hypertensive this am. Will resume patient's home antihypertensive regimen. Titrate Nitro gtt for SBP less than 160. [facility] is also following. Diagnosis and plan of care discussed with patient at the bedside. Patient verbalized understanding and agreed with current plan of care. All questions and concerns addressed at this time. Team will continue to f/u with any further updates. 08/18: Tolerated HD yesterday, 4.5L removed. Now stable on 3L NC SPO2 at 100%. Patient is off Nitro gtt this am, SBP in he 170s, home antihypertensive resumed. 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 2D echo pending. D/W CCM patient is stable for transfer to the floor. Assessment and Plan #Acute Hypoxemic Respiratory Failure 2/ #Pulmonary Edema #COPD, O2 Dependent - Presented with SOB, dyspnea required HHFL - CXR suggesting pulmonary edema - HD yesterday, 4.5L removed - Patient down to 3L NC this am SPO2 at 100% - CCM consulted, appreciate recommendations - Continue bronchodilators per CCM - Continue O2 supplementation, wean to home O2 at 2L as tolerated - Continue HD per Nephro - Continue SPO2 monitoring for SPO2 goal above 92% #Hypertensive Urgency #Cardiomegaly #Possible CHF #H/o Brugada syndrome and PR with Stent placement - Presented with SBP in the 190s requiring Nitroglcerin gtt - Nitro gtt off this am, SBP still in the 170 - Home antihypertensives and antiplatelets resumed - 2D echo pending - Continue blood pressure monitor per protocol - PRN hydralazine for SBP greater than 160 #End Stage Renal Disease(ESRD) on HD - regular days M,W,F - Per patient last HD day was on Tuesday prior to admit - Nephrology on consult, appreciated recommendation - HD yesterday, 4.5L removed - Continue HD per Nephro - Strict intake and output - Avoid nephrotoxic medications; Renally dose medications - Monitor and replace electrolytes as needed #Anemia of Chronic Disease #Hemorrhage of Tongue-resolved - Presented with heavy oral bleeding after bitting his tongue - s/p DDAVP in the ED - Bleeding resolved, H&H remains stable - Continue to monitor for s/s of any bleeding - Trend H&H - Transfuse for hemoglobin less than 7 - Continue Epogen per Nephro #H/o DVT - resumed home Eliquis #GI/DVT Prophylaxis - PPI- Pepcid - resumed home Eliquis The high probability of a clinically significant, sudden or life threatening deterioration of the [multiple] system(s) required my full and direct attention, intervention and personal management. The aggregate critical care time was [60] minutes. This time is in addition to time spent performing reported procedures but includes the following: [x] Data Review and interpretation [x] Patient assessment and monitoring of vital signs [x] Documentation [x] Medication orders and management Disposition Plan: ICU Total Time Spent with Patient (Minutes): 60 History Interval history: Patient seen and examined at the bedside. Fully AAO, on 3L NC, denied any pain nor discomfort at this time, No signs of respiratory distress noted. Patient is off Nitro gtt this am, SBP still in the 170s. Tolerated HD yesterday, 4.5L removed. Hospitalist Physical - Constitutional Vitals: Temp Pulse Resp BP Pulse Ox 98.4 F 81 25 H 167/94 100 08/18/21 08:00 08/18/21 08:45 08/18/21 08:45 08/18/21 08:30 08/18/21 08:43 General appearance: Present: no acute distress, well-nourished - EENT Eyes: Present: PERRL ENT: hearing intact - Neck Neck: Present: normal ROM - Respiratory Respiratory effort: normal Respiratory: bilateral: diminished - Cardiovascular Rhythm: regular Heart Sounds: Present: S1 & S2 - Extremities Extremities: no ischemia, pulses intact, pulses symmetrical Peripheral Pulses: within normal limits - Abdominal General gastrointestinal: soft, non-distended, normal bowel sounds - Integumentary Integumentary: Present: clear, warm, dry - Psychiatric Psychiatric: appropriate mood/affect, cooperative - Neurologic Neurologic: CNII-XII intact, moves all extremities - Allied Health Allied health notes reviewed: nursing HEART Score - HEART Score Troponin: Troponin T 0.075 ng/mL (0.00-0.029) H 08/17/21 00:13 Results - Labs CBC & Chem 7: 08/18/21 04:47 08/18/21 04:47 Labs: Laboratory Last Values WBC 4.4 K/mm3 (4.5-11.0) L 08/18/21 04:47 RBC 2.69 M/mm3 (3.65-5.03) L 08/18/21 04:47 Hgb 7.2 gm/dl (11.8-15.2) L 08/18/21 04:47 Hct 22.2 % (35.5-45.6) L 08/18/21 04:47 MCV 83 fl (84-94) L 08/18/21 04:47 MCH 27 pg (28-32) L 08/18/21 04:47 MCHC 33 % (32-34) 08/18/21 04:47 RDW 20.4 % (13.2-15.2) H 08/18/21 04:47 Plt Count 124 K/mm3 (140-440) L 08/18/21 04:47 Lymph % (Auto) 15.2 % (13.4-35.0) 08/18/21 04:47 Patrick % (Auto) 8.3 % (0.0-7.3) H 08/18/21 04:47 Eos % (Auto) 5.9 % (0.0-4.3) H 08/18/21 04:47 Baso % (Auto) 0.9 % (0.0-1.8) 08/18/21 04:47 Lymph # (Auto) 0.7 K/mm3 (1.2-5.4) L 08/18/21 04:47 Patrick # (Auto) 0.3 K/mm3 (0.0-0.8) 08/18/21 04:47 Eos # (Auto) 0.2 K/mm3 (0.0-0.4) 08/18/21 04:47 Baso # (Auto) 0.1 K/mm3 (0.0-0.1) 08/18/21 04:47 Seg Neutrophils % 68.4 % (40.0-70.0) 08/18/21 04:47 Seg Neutrophils # 2.9 K/mm3 (1.8-7.7) 08/18/21 04:47 PT 15.1 Sec. (12.2-14.9) H 08/17/21 23:26 INR 1.07 (0.87-1.13) 08/17/21 23: APTT 30.8 Sec. (24.2-36.6) 08/17/21 23:26 ABG pH 7.448 (7.320-7.450) 08/17/21 01:30 POC ABG pCO2 31.9 mmHg (32.0-48.0) L 08/17/21 01:30 POC ABG pO2 53.3 mmHg (83-108) L 08/17/21 01:30 POC ABG HCO3 21.6 08/17/21 01:30 ABG O2 Saturation 88.6 (0-100) 08/17/21 01:30 POC ABG Base Excess -1.8 08/17/21 01:30 ABG Hemoglobin 10.9 (12.0-17.5) L 08/17/21 01:30 ABG Oxyhemoglobin 87.9 (94-98) L 08/17/21 01:30 ABG Methemoglobin 0.3 (0.0-1.5) 08/17/21 01:30 ABG Sodium Not Reportable 08/17/21 01:30 ABG Potassium Not Reportable 08/17/21 01:30 ABG Chloride Not Reportable 08/17/21 01:30 ABG Glucose Not Reportable 08/17/21 01:30 Carboxyhemoglobin 0.5 (0.5-1.5) 08/17/21 01:30 FiO2 % 21.0 08/17/21 01:30 Sodium 137 mmol/L (137-145) 08/18/21 04:47 Potassium 3.6 mmol/L (3.6-5.0) 08/18/21 04:47 Chloride 98.7 mmol/L (98-107) 08/18/21 04:47 Carbon Dioxide 25 mmol/L (22-30) 08/18/21 04:47 Anion Gap 17 mmol/L 08/18/21 04:47 BUN 43 mg/dL (9-20) H 08/18/21 04:47 Creatinine 8.6 mg/dL (0.8-1.3) H 08/18/21 04:47 Estimated GFR 8 ml/min 08/18/21 04:47 BUN/Creatinine Ratio 5 % 08/18/21 04:47 Glucose 77 mg/dL (75-100) 08/18/21 04:47 Calcium 8.4 mg/dL (8.4-10.2) 08/18/21 04:47 Magnesium 2.60 mg/dL (1.7-2.3) H 08/17/21 00:13 Total Bilirubin 0.60 mg/dL (0.1-1.2) 08/17/21 00:13 AST 13 units/L (5-40) 08/17/21 00:13 ALT 12 units/L (7-56) 08/17/21 00:13 Alkaline Phosphatase 152 units/L (35-129) H 08/17/21 00:13 Total Creatine Kinase 329 units/L (55-170) H 08/17/21 00:13 Troponin T 0.075 ng/mL (0.00-0.029) H 08/17/21 00:13 NT-Pro-B Natriuret Pep 84696 pg/mL (0-450) H 08/17/21 00:13 Total Protein 6.9 g/dL (6.3-8.2) 08/17/21 00:13 Albumin 4.1 g/dL (3.9-5) 08/17/21 00:13 Albumin/Globulin Ratio 1.5 % 08/17/21 00:13 Triglycerides 46 mg/dL (2-149) 08/17/21 00:13 Cholesterol 140 mg/dL (50-199) 08/17/21 00:13 LDL Cholesterol Direct 40 mg/dL (50-130) L 08/17/21 00:13 HDL Cholesterol 88 mg/dL (40-59) H 08/17/21 00:13 Cholesterol/HDL Ratio 1.59 % 08/17/21 00:13 Arterial Blood Glucose Not Reportable 08/17/21 01:30 Hepatitis A IgM Ab Non-reactive (NonReactive) 08/17/21 11:27 Hep Bs Antigen Non-reactive (Negative) 08/17/21 11:27 Hep B Core IgM Ab Non-reactive (NonReactive) 08/17/21 11:27 Hepatitis C Antibody Non-reactive (NonReactive) 08/17/21 11:27 Stringer/IV: Voiding Method Urinal Active Medications - Current Medications Current Medications: Generic Name Dose Route Start Last Admin Trade Name Freq PRN Reason Stop Dose Admin Acetaminophen 650 mg 08/17/21 01:38 Acetaminophen 325 Mg Tab PO Q4H PRN Pain MILD(1-3)/Fever >100.5/BOWER Albuterol 2.5 mg 08/17/21 01:38 Albuterol 2.5 Mg/3 Ml Nebu IH Q3HRT PRN Shortness Of Breath Albuterol/Ipratropium 1 ampul 08/17/21 02:00 08/18/21 08:43 Ipratropium/Albuterol Sulfate 3 Ml Ampul.Neb IH 1 ampul Q6HRT KRISTIAN Administration Apixaban 5 mg 08/17/21 22:00 08/17/21 21:46 Apixaban 5 Mg Tab PO 5 mg Q12HR KRISTIAN Administration Protocol Carvedilol 6.25 mg 08/17/21 10:00 08/17/21 21:47 Carvedilol 6.25 Mg Tab PO 6.25 mg BID KRISTIAN Administration Clopidogrel Bisulfate 75 mg 08/18/21 10:00 Clopidogrel 75 Mg Tab PO QDAY [facility] Doxazosin Mesylate 4 mg 08/17/21 22:00 08/17/21 21:46 Doxazosin 4 Mg Tab PO 4 mg BID KRISTIAN Administration Epoetin Bandar-epbx 20,000 unit 08/17/21 08:10 Epoetin Bandar-Epbx 20,000 Unit/1 Ml Vial SUB-Q MUKUL PRN hemodialysis Famotidine 20 mg 08/18/21 10:00 Famotidine 20 Mg Tab PO DAILY [facility] Heparin Sodium (Porcine) 3,000 unit 08/17/21 08:10 Heparin 10,000 Units/10 Ml Vial IV MUKUL PRN hemodialysis Hydralazine HCl 50 mg 08/17/21 14:00 08/18/21 06:10 Hydralazine 25 Mg Tab PO 50 mg Q8HR KRISTIAN Administration Hydralazine HCl 10 mg 08/17/21 18:21 08/18/21 08:17 Hydralazine 20 Mg/1 Ml Inj IV 10 mg Q4HR PRN Administration SBP >/=160; DBP >/=100 Hydromorphone HCl 0.5 mg 08/17/21 01:38 Hydromorphone 1 Mg/1 Ml Inj IV Q3H PRN Pain , Severe (7-10) Nitroglycerin/Dextrose 50 mg in 250 mls @ 3 mls/hr 08/17/21 02:00 08/18/21 07:52 Tridil Drip 50mg/250ml IV 0 mcg/min TITR KRISTIAN 0 mls/hr Titration Protocol 10 MCG/MIN Sodium Chloride 100 mls @ 999 mls/hr 08/17/21 08:07 Nacl 0.9% IV MUKUL PRN Hypotension Isosorbide Mononitrate 60 mg 08/18/21 10:00 Isosorbide Mononitrate Er 60 Mg Tab PO QDAY [facility] Morphine Sulfate 2 mg 08/17/21 01:38 Morphine 2 Mg/1 Ml Inj IV Q4H PRN Pain, Moderate (4-6) Nifedipine 90 mg 08/18/21 10:00 Nifedipine Xl 90 Mg Tab PO QDAY [facility] Ondansetron HCl 4 mg 08/17/21 01:38 Ondansetron 4 Mg/2 Ml Inj IV Q8H PRN Nausea And Vomiting Sodium Chloride 10 ml 08/17/21 10:00 08/17/21 21:49 Sodium Chloride 0.9% 10 Ml Flush Syringe IV 10 ml BID KRISTIAN Administration Sodium Chloride 10 ml 08/17/21 01:38 Sodium Chloride 0.9% 10 Ml Flush Syringe IV PRN PRN LINE FLUSH <HEMANTH LOPEZ - Last Filed: 08/19/21 07:14> Assessment and Plan Assessment and plan: I saw and evaluated the patient. I agree with the findings and the plan of care as documented in the Nurse Practitioner's~note, with the following corrections and additions. Hospitalist Physical - Constitutional Vitals: Temp Pulse Resp BP Pulse Ox 98.3 F 74 20 157/87 100 08/19/21 04:27 08/19/21 04:27 08/19/21 04:27 08/19/21 04:27 08/19/21 04:27 HEART Score - HEART Score Troponin: Troponin T 0.075 ng/mL (0.00-0.029) H 08/17/21 00:13 Results - Labs CBC & Chem 7: 08/19/21 04:53 08/19/21 04:53 Labs: Laboratory Last Values WBC 5.5 K/mm3 (4.5-11.0) 08/19/21 04:53 RBC 2.61 M/mm3 (3.65-5.03) L 08/19/21 04:53 Hgb 7.2 gm/dl (11.8-15.2) L 08/19/21 04:53 Hct 21.6 % (35.5-45.6) L 08/19/21 04:53 MCV 83 fl (84-94) L 08/19/21 04:53 MCH 28 pg (28-32) 08/19/21 04:53 MCHC 33 % (32-34) 08/19/21 04:53 RDW 20.3 % (13.2-15.2) H 08/19/21 04:53 Plt Count 114 K/mm3 (140-440) L 08/19/21 04:53 Lymph % (Auto) 15.2 % (13.4-35.0) 08/18/21 04:47 Patrick % (Auto) 8.3 % (0.0-7.3) H 08/18/21 04:47 Eos % (Auto) 5.9 % (0.0-4.3) H 08/18/21 04:47 Baso % (Auto) 0.9 % (0.0-1.8) 08/18/21 04:47 Lymph # (Auto) 0.7 K/mm3 (1.2-5.4) L 08/18/21 04:47 Patrick # (Auto) 0.3 K/mm3 (0.0-0.8) 08/18/21 04:47 Eos # (Auto) 0.2 K/mm3 (0.0-0.4) 08/18/21 04:47 Baso # (Auto) 0.1 K/mm3 (0.0-0.1) 08/18/21 04:47 Seg Neutrophils % 68.4 % (40.0-70.0) 08/18/21 04:47 Seg Neutrophils # 2.9 K/mm3 (1.8-7.7) 08/18/21 04:47 PT 15.1 Sec. (12.2-14.9) H 08/17/21 23: INR 1.07 (0.87-1.13) 08/17/21 23: APTT 30.8 Sec. (24.2-36.6) 08/17/21 23:26 ABG pH 7.448 (7.320-7.450) 08/17/21 01:30 POC ABG pCO2 31.9 mmHg (32.0-48.0) L 08/17/21 01:30 POC ABG pO2 53.3 mmHg (83-108) L 08/17/21 01:30 POC ABG HCO3 21.6 08/17/21 01:30 ABG O2 Saturation 88.6 (0-100) 08/17/21 01:30 POC ABG Base Excess -1.8 08/17/21 01:30 ABG Hemoglobin 10.9 (12.0-17.5) L 08/17/21 01:30 ABG Oxyhemoglobin 87.9 (94-98) L 08/17/21 01:30 ABG Methemoglobin 0.3 (0.0-1.5) 08/17/21 01:30 ABG Sodium Not Reportable 08/17/21 01:30 ABG Potassium Not Reportable 08/17/21 01:30 ABG Chloride Not Reportable 08/17/21 01:30 ABG Glucose Not Reportable 08/17/21 01:30 Carboxyhemoglobin 0.5 (0.5-1.5) 08/17/21 01:30 FiO2 % 21.0 08/17/21 01:30 Sodium 137 mmol/L (137-145) 08/19/21 04:53 Potassium 3.8 mmol/L (3.6-5.0) 08/19/21 04:53 Chloride 97.3 mmol/L (98-107) L 08/19/21 04:53 Carbon Dioxide 23 mmol/L (22-30) 08/19/21 04:53 Anion Gap 21 mmol/L 08/19/21 04:53 BUN 64 mg/dL (9-20) H 08/19/21 04:53 Creatinine 10.8 mg/dL (0.8-1.3) H 08/19/21 04:53 Estimated GFR 6 ml/min 08/19/21 04:53 BUN/Creatinine Ratio 6 % 08/19/21 04:53 Glucose 73 mg/dL (75-100) L 08/19/21 04:53 POC Glucose 74 mg/dL (70-105) 08/18/21 11:33 Calcium 8.4 mg/dL (8.4-10.2) 08/19/21 04:53 Phosphorus 4.50 mg/dL (2.5-4.5) 08/19/21 04:53 Magnesium 2.30 mg/dL (1.7-2.3) 08/19/21 04:53 Total Bilirubin 0.60 mg/dL (0.1-1.2) 08/17/21 00:13 AST 13 units/L (5-40) 08/17/21 00:13 ALT 12 units/L (7-56) 08/17/21 00:13 Alkaline Phosphatase 152 units/L (35-129) H 08/17/21 00:13 Total Creatine Kinase 329 units/L (55-170) H 08/17/21 00:13 Troponin T 0.075 ng/mL (0.00-0.029) H 08/17/21 00:13 NT-Pro-B Natriuret Pep 26340 pg/mL (0-450) H 08/17/21 00:13 Total Protein 6.9 g/dL (6.3-8.2) 08/17/21 00:13 Albumin 4.1 g/dL (3.9-5) 08/17/21 00:13 Albumin/Globulin Ratio 1.5 % 08/17/21 00:13 Triglycerides 46 mg/dL (2-149) 08/17/21 00:13 Cholesterol 140 mg/dL (50-199) 08/17/21 00:13 LDL Cholesterol Direct 40 mg/dL (50-130) L 08/17/21 00:13 HDL Cholesterol 88 mg/dL (40-59) H 08/17/21 00:13 Cholesterol/HDL Ratio 1.59 % 08/17/21 00:13 Arterial Blood Glucose Not Reportable 08/17/21 01:30 Hepatitis A IgM Ab Non-reactive (NonReactive) 08/17/21 11:27 Hep Bs Antigen Non-reactive (Negative) 08/17/21 11:27 Hep B Core IgM Ab Non-reactive (NonReactive) 08/17/21 11:27 Hepatitis C Antibody Non-reactive (NonReactive) 08/17/21 11:27 Stringer/IV: Voiding Method Urinal Active Medications - Current Medications Current Medications: Generic Name Dose Route Start Last Admin Trade Name Freq PRN Reason Stop Dose Admin Acetaminophen 650 mg 08/17/21 01:38 Acetaminophen 325 Mg Tab PO Q4H PRN Pain MILD(1-3)/Fever >100.5/BOWER Albuterol 2.5 mg 08/17/21 01:38 Albuterol 2.5 Mg/3 Ml Nebu IH Q3HRT PRN Shortness Of Breath Apixaban 5 mg 08/17/21 22:00 08/18/21 22:27 Apixaban 5 Mg Tab PO 5 mg Q12HR KRISTIAN Administration Protocol Carvedilol 6.25 mg 08/17/21 10:00 08/18/21 22:27 Carvedilol 6.25 Mg Tab PO 6.25 mg BID KRISTIAN Administration Clopidogrel Bisulfate 75 mg 08/18/21 10:00 08/18/21 10:14 Clopidogrel 75 Mg Tab PO 75 mg QDAY KRISTIAN Administration Doxazosin Mesylate 4 mg 08/17/21 22:00 08/18/21 22:26 Doxazosin 4 Mg Tab PO 4 mg BID KRISTIAN Administration Epoetin Bandar-epbx 20,000 unit 08/17/21 08:10 Epoetin Bandar-Epbx 20,000 Unit/1 Ml Vial SUB-Q MUKUL PRN hemodialysis Famotidine 20 mg 08/18/21 10:00 08/18/21 09:12 Famotidine 20 Mg Tab PO 20 mg DAILY KRISTIAN Administration Heparin Sodium (Porcine) 3,000 unit 08/17/21 08:10 Heparin 10,000 Units/10 Ml Vial IV MUKUL PRN hemodialysis Hydralazine HCl 10 mg 08/17/21 18:21 08/18/21 08:17 Hydralazine 20 Mg/1 Ml Inj IV 10 mg Q4HR PRN Administration SBP >/=160; DBP >/=100 Hydralazine HCl 50 mg 08/18/21 12:00 08/19/21 05:28 Hydralazine 25 Mg Tab PO 50 mg Q6HR KRISTIAN Administration Sodium Chloride 100 mls @ 999 mls/hr 08/17/21 08:07 Nacl 0.9% IV MUKUL PRN Hypotension Isosorbide Mononitrate 60 mg 08/18/21 10:00 08/18/21 09:12 Isosorbide Mononitrate Er 60 Mg Tab PO 60 mg QDAY KRISTIAN Administration Nifedipine 90 mg 08/18/21 10:00 08/18/21 09:12 Nifedipine Xl 90 Mg Tab PO 90 mg QDAY KRISTIAN Administration Ondansetron HCl 4 mg 08/17/21 01:38 Ondansetron 4 Mg/2 Ml Inj IV Q8H PRN Nausea And Vomiting Sodium Chloride 10 ml 08/17/21 10:00 08/18/21 22:28 Sodium Chloride 0.9% 10 Ml Flush Syringe IV 10 ml BID KRISTIAN Administration Sodium Chloride 10 ml 08/17/21 01:38 Sodium Chloride 0.9% 10 Ml Flush Syringe IV PRN PRN LINE FLUSH
[2021-08-18] MEDS ORDERED: NIFEDIPINE 90 MG PO SCH (10:00)
[2021-08-18] MEDS: CLOPIDOGREL 75 MG TAB PO SCH (10:14)
[2021-08-18] MEDS ORDERED: ZOLPIDEM 5 MG TAB PO ONE (23:07)
[2021-08-19 05:16] LABS: Hematocrit 21.6 % (35.5-45.6); Hemoglobin 7.2 gm/dl (11.8-15.2); Mean Corpuscular HGB Conc 33 % (32-34); Mean Corpuscular Volume 83 fl (84-94); Platelet Count 114 K/mm3 (140-440); Red Blood Count 2.61 M/mm3 (3.65-5.03)
[2021-08-19 05:17] LABS: Red Cell Distribution Width 20.3 % (13.2-15.2)
[2021-08-19] MEDS: hydrALAZINE 25 MG TAB PO SCH ×3 (05:28→17:10)
[2021-08-19 05:36] LABS: Calcium 8.4 mg/dL (8.4-10.2)
[2021-08-19] MEDS ORDERED: SODIUM CHLORIDE 0.9% 500 ML 500 ML IV SCH (09:00)
--- NOTE | 2021-08-19 09:00 | Progress Note ---
Assessment and Plan Will sign off. Call if questions. Subjective Date of service: 08/19/21 Interval history: Successful transfer out of ICU. Stable on floor. Objective - Constitutional Vitals: Vital Signs - 12hr 08/18/21 08/18/21 08/18/21 22:00 22:17 22:26 Temperature 98.1 F Pulse Rate 90 90 90 Respiratory 18 20 Rate Blood Pressure 156/86 156/86 O2 Sat by Pulse 98 100 Oximetry 08/18/21 08/19/21 22:27 04:27 Temperature 98.3 F Pulse Rate 90 74 Respiratory 20 Rate Blood Pressure 156/86 157/87 O2 Sat by Pulse 100 Oximetry - Labs CBC & Chem 7: 08/19/21 04:53 08/19/21 04:53 Labs: Abnormal lab results 08/19/21 08/19/21 Range/Units 04:53 04:53 RBC 2.61 L (3.65-5.03) M/mm3 Hgb 7.2 L (11.8-15.2) gm/dl Hct 21.6 L (35.5-45.6) % MCV 83 L (84-94) fl RDW 20.3 H (13.2-15.2) % Plt Count 114 L (140-440) K/mm3 Chloride 97.3 L (98-107) mmol/L BUN 64 H (9-20) mg/dL Creatinine 10.8 H (0.8-1.3) mg/dL Glucose 73 L (75-100) mg/dL Medications & Allergies - Medications Allergies/Adverse Reactions: Allergies No Known Allergies Allergy (Unverified 04/20/13 09:48) Home Medications: Home Medications Medication Instructions Recorded Confirmed Last Taken Type carvediloL [Coreg] 6.25 mg PO BID #60 tablet 04/25/13 08/18/21 Unknown Rx Clopidogrel [Plavix] 75 mg PO QDAY 08/17/21 08/17/21 Unknown History Doxazosin [Cardura] 4 mg PO BID 08/17/21 08/17/21 Unknown History Eliquis 5 mg PO BID 08/17/21 08/17/21 Unknown History Isosorbide Mononitrate [Isosorbide 60 mg PO QDAY 08/17/21 08/17/21 Unknown History Mononitrate ER] Nifedipine ER 90 mg PO QDAY 08/17/21 08/17/21 Unknown History hydrALAZINE 100 mg PO BID 08/17/21 08/17/21 Unknown History Active Medications: Generic Name Dose Route Start Last Admin Trade Name Freq PRN Reason Stop Dose Admin Acetaminophen 650 mg 08/17/21 01:38 Acetaminophen 325 Mg Tab PO Q4H PRN Pain MILD(1-3)/Fever >100.5/BOWER Albuterol 2.5 mg 08/17/21 01:38 Albuterol 2.5 Mg/3 Ml Nebu IH Q3HRT PRN Shortness Of Breath Apixaban 5 mg 08/17/21 22:00 08/18/21 22:27 Apixaban 5 Mg Tab PO 5 mg Q12HR KRISTIAN Administration Protocol Carvedilol 6.25 mg 08/17/21 10:00 08/18/21 22:27 Carvedilol 6.25 Mg Tab PO 6.25 mg BID KRISTIAN Administration Clopidogrel Bisulfate 75 mg 08/18/21 10:00 08/18/21 10:14 Clopidogrel 75 Mg Tab PO 75 mg QDAY KRISTIAN Administration Doxazosin Mesylate 4 mg 08/17/21 22:00 08/18/21 22:26 Doxazosin 4 Mg Tab PO 4 mg BID KRISTIAN Administration Epoetin Bandar-epbx 20,000 unit 08/17/21 08:10 Epoetin Bandar-Epbx 20,000 Unit/1 Ml Vial SUB-Q MUKUL PRN hemodialysis Famotidine 20 mg 08/18/21 10:00 08/18/21 09:12 Famotidine 20 Mg Tab PO 20 mg DAILY KRISTIAN Administration Heparin Sodium (Porcine) 3,000 unit 08/17/21 08:10 Heparin 10,000 Units/10 Ml Vial IV MUKUL PRN hemodialysis Hydralazine HCl 10 mg 08/17/21 18:21 08/18/21 08:17 Hydralazine 20 Mg/1 Ml Inj IV 10 mg Q4HR PRN Administration SBP >/=160; DBP >/=100 Hydralazine HCl 50 mg 08/18/21 12:00 08/19/21 05:28 Hydralazine 25 Mg Tab PO 50 mg Q6HR KRISTIAN Administration Sodium Chloride 100 mls @ 999 mls/hr 08/17/21 08:07 Nacl 0.9% IV MUKUL PRN Hypotension Desmopressin Acetate 20 mcg/ 55 mls @ 100 mls/hr 08/19/21 09:30 Sodium Chloride IV 08/19/21 10:02 ONCE ONE Sodium Chloride 500 mls @ 0 mls/hr 08/19/21 08:57 Nacl 0.9% 500 Ml IV 08/19/21 08:58 ONCE ONE As Directed Isosorbide Mononitrate 60 mg 08/18/21 10:00 08/18/21 09:12 Isosorbide Mononitrate Er 60 Mg Tab PO 60 mg QDAY KRISTIAN Administration Nifedipine 90 mg 08/18/21 10:00 08/18/21 09:12 Nifedipine Xl 90 Mg Tab PO 90 mg QDAY KRISTIAN Administration Ondansetron HCl 4 mg 08/17/21 01:38 Ondansetron 4 Mg/2 Ml Inj IV Q8H PRN Nausea And Vomiting Sodium Chloride 10 ml 08/17/21 10:00 08/18/21 22:28 Sodium Chloride 0.9% 10 Ml Flush Syringe IV 10 ml BID KRISTIAN Administration Sodium Chloride 10 ml 08/17/21 01:38 Sodium Chloride 0.9% 10 Ml Flush Syringe IV PRN PRN LINE FLUSH HEART Score - HEART Score Troponin: Troponin T 0.075 ng/mL (0.00-0.029) H 08/17/21 00:13
[2021-08-19] MEDS ORDERED: DESMOPRESSIN ACETATE 20 MCG in SODIUM CHLORIDE 0.9% 50 ML IV ONE (09:30)
[2021-08-19] MEDS: CLOPIDOGREL 75 MG TAB PO SCH (09:39)
[2021-08-19] MEDS: FAMOTIDINE 20 MG TAB PO SCH (09:40)
[2021-08-19] MEDS: NIFEdipine XL 90 MG TAB PO SCH (09:40)
[2021-08-19] MEDS: carvediloL 6.25 MG TAB PO SCH ×2 (09:40→22:42)
[2021-08-19] MEDS: DOXAZOSIN 4 MG TAB PO SCH ×2 (10:21→22:42)
--- NOTE | 2021-08-19 10:56 | Progress Note ---
Assessment and Plan Assessment and plan: This is a 50-year-old male with known past medical history of ESRD on HD(M,W,F), DVT on Eliquis, Brugada syndrome, HTN, CA s/p stent placement, and COPD, O2 dependent at home admitted for pulmonary edema and hypertensive urgency. Hospital Course to Date: 08/17: Patient seen and examined at the bedside. Patient is fully AAO, on HHFL at 40% and 20L SPO2 above 92%. Patient still with dyspnea with exertion, plan for HD today per Nephrology. Oral bleeding resolved, H&H remains strable, will resume home AC- Eliquis. Left upper chest Permacath and LUE Av-fistula noted, per patient plan was to remove permacath two weeks ago however appointment was rescheduled due to unforeseen events. D/w Nephro plan for possible permacath removal sometimes this week. Patient remains on Nitro gtt, still hypertensive this am. Will resume patient's home antihypertensive regimen. Titrate Nitro gtt for SBP less than 160. [facility] is also following. Diagnosis and plan of care discussed with patient at the bedside. Patient verbalized understanding and agreed with current plan of care. All questions and concerns addressed at this time. Team will continue to f/u with any further updates. 08/18: Tolerated HD yesterday, 4.5L removed. Now stable on 3L NC SPO2 at 100%. Patient is off Nitro gtt this am, SBP in he 170s, home antihypertensive resumed. 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 2D echo pending. D/W [facility] patient is stable for transfer to the floor. 08/19: Patient seen and examined this morning still with bleeding his tongue. This is a clear demarcated area of laceration but doubt that this is could have been caused by bite. Hemoglobin is 7.2 I have ordered DDAVP and consultation with the paleontological helper. Also ordered FFP and consultation with a shop superintendent that I consulted. We will hold his Eliquis at this time. Also on Eliquis he probably will benefit from the lower dose being that he has renal impediment. He may need transfusion we will monitor H&H in a.m.. I have provided extensive counseling to the patient about his underlying clinical condition. We will check a vitamin D level and further management as tolerated I will try to find out when this patient experienced his DVT and if he truly should still remain on Eliquis so this can be stopped safely. Assessment and Plan #Acute Hypoxemic Respiratory Failure 2/2 #Pulmonary Edema #COPD, O2 Dependent - Presented with SOB, dyspnea required HHFL - CXR suggesting pulmonary edema - HD yesterday, 4.5L removed - Patient down to 3L NC this am SPO2 at 100% - CCM consulted, appreciate recommendations - Continue bronchodilators per CCM - Continue O2 supplementation, wean to home O2 at 2L as tolerated - Continue HD per Nephro - Continue SPO2 monitoring for SPO2 goal above 92% #Hypertensive Urgency #Cardiomegaly #Possible CHF #H/o Brugada syndrome and CA with Stent placement - Presented with SBP in the 190s requiring Nitroglcerin gtt - Nitro gtt off this am, SBP still in the 170 - Home antihypertensives and antiplatelets resumed - 2D echo pending - Continue blood pressure monitor per protocol - PRN hydralazine for SBP greater than 160 #End Stage Renal Disease(ESRD) on HD - regular days M,W,F - Per patient last HD day was on Tuesday prior to admit - Nephrology on consult, appreciated recommendation - HD yesterday, 4.5L removed - Continue HD per Nephro - Strict intake and output - Avoid nephrotoxic medications; Renally dose medications - Monitor and replace electrolytes as needed #Anemia of Chronic Disease #Hemorrhage of Tongue-resolved - Presented with heavy oral bleeding after bitting his tongue - s/p DDAVP in the ED - Bleeding resolved, H&H remains stable - Continue to monitor for s/s of any bleeding - Trend H&H - Transfuse for hemoglobin less than 7 - Continue Epogen per Nephro #H/o DVT -Hold Eliquis, SCDs for now #GI/DVT Prophylaxis - PPI- Pepcid -Hold, SCDs Eliquis History Interval history: Patient seen and examined still with bleeding noted. Hospitalist Physical - Physical exam Narrative exam: General appearance: Present: no acute distress, well-nourished - EENT Eyes: Present: PERRL, tongue laceration with obvious bleeding noted. ENT: hearing intact - Neck Neck: Present: normal ROM - Respiratory Respiratory effort: normal Respiratory: bilateral: diminished - Cardiovascular Rhythm: regular Heart Sounds: Present: S1 & S2 - Extremities Extremities: no ischemia, pulses intact, pulses symmetrical Peripheral Pulses: within normal limits - Abdominal General gastrointestinal: soft, non-distended, normal bowel sounds - Integumentary Integumentary: Present: clear, warm, dry - Psychiatric Psychiatric: appropriate mood/affect, cooperative - Neurologic Neurologic: CNII-XII intact, moves all extremities - Allied Health Allied health notes reviewed: nursing - Constitutional Vitals: Temp Pulse Resp BP Pulse Ox 98.3 F 72 20 162/91 100 08/19/21 04:27 08/19/21 10:21 08/19/21 04:27 08/19/21 10:21 08/19/21 04:27 General appearance: Present: no acute distress, well-nourished HEART Score - HEART Score Troponin: Troponin T 0.075 ng/mL (0.00-0.029) H 08/17/21 00:13 Results - Labs CBC & Chem 7: 08/19/21 04:53 08/19/21 04:53 Labs: Laboratory Last Values WBC 5.5 K/mm3 (4.5-11.0) 08/19/21 04:53 RBC 2.61 M/mm3 (3.65-5.03) L 08/19/21 04:53 Hgb 7.2 gm/dl (11.8-15.2) L 08/19/21 04:53 Hct 21.6 % (35.5-45.6) L 08/19/21 04:53 MCV 83 fl (84-94) L 08/19/21 04:53 MCH 28 pg (28-32) 08/19/21 04:53 MCHC 33 % (32-34) 08/19/21 04:53 RDW 20.3 % (13.2-15.2) H 08/19/21 04:53 Plt Count 114 K/mm3 (140-440) L 08/19/21 04:53 Lymph % (Auto) 15.2 % (13.4-35.0) 08/18/21 04:47 Millard % (Auto) 8.3 % (0.0-7.3) H 08/18/21 04:47 Eos % (Auto) 5.9 % (0.0-4.3) H 08/18/21 04:47 Baso % (Auto) 0.9 % (0.0-1.8) 08/18/21 04:47 Lymph # (Auto) 0.7 K/mm3 (1.2-5.4) L 08/18/21 04:47 Millard # (Auto) 0.3 K/mm3 (0.0-0.8) 08/18/21 04:47 Eos # (Auto) 0.2 K/mm3 (0.0-0.4) 08/18/21 04:47 Baso # (Auto) 0.1 K/mm3 (0.0-0.1) 08/18/21 04:47 Seg Neutrophils % 68.4 % (40.0-70.0) 08/18/21 04:47 Seg Neutrophils # 2.9 K/mm3 (1.8-7.7) 08/18/21 04:47 PT 15.1 Sec. (12.2-14.9) H 08/17/21 23:26 INR 1.07 (0.87-1.13) 08/17/21 23:26 APTT 30.8 Sec. (24.2-36.6) 08/17/21 23:26 ABG pH 7.448 (7.320-7.450) 08/17/21 01:30 POC ABG pCO2 31.9 mmHg (32.0-48.0) L 08/17/21 01:30 POC ABG pO2 53.3 mmHg (83-108) L 08/17/21 01:30 POC ABG HCO3 21.6 08/17/21 01:30 ABG O2 Saturation 88.6 (0-100) 08/17/21 01:30 POC ABG Base Excess -1.8 08/17/21 01:30 ABG Hemoglobin 10.9 (12.0-17.5) L 08/17/21 01:30 ABG Oxyhemoglobin 87.9 (94-98) L 08/17/21 01:30 ABG Methemoglobin 0.3 (0.0-1.5) 08/17/21 01:30 ABG Sodium Not Reportable 08/17/21 01:30 ABG Potassium Not Reportable 08/17/21 01:30 ABG Chloride Not Reportable 08/17/21 01:30 ABG Glucose Not Reportable 08/17/21 01:30 Carboxyhemoglobin 0.5 (0.5-1.5) 08/17/21 01:30 FiO2 % 21.0 08/17/21 01:30 Sodium 137 mmol/L (137-145) 08/19/21 04:53 Potassium 3.8 mmol/L (3.6-5.0) 08/19/21 04:53 Chloride 97.3 mmol/L (98-107) L 08/19/21 04:53 Carbon Dioxide 23 mmol/L (22-30) 08/19/21 04:53 Anion Gap 21 mmol/L 08/19/21 04:53 BUN 64 mg/dL (9-20) H 08/19/21 04:53 Creatinine 10.8 mg/dL (0.8-1.3) H 08/19/21 04:53 Estimated GFR 6 ml/min 08/19/21 04:53 BUN/Creatinine Ratio 6 % 08/19/21 04:53 Glucose 73 mg/dL (75-100) L 08/19/21 04:53 POC Glucose 74 mg/dL (70-105) 08/18/21 11:33 Calcium 8.4 mg/dL (8.4-10.2) 08/19/21 04:53 Phosphorus 4.50 mg/dL (2.5-4.5) 08/19/21 04:53 Magnesium 2.30 mg/dL (1.7-2.3) 08/19/21 04:53 Total Bilirubin 0.60 mg/dL (0.1-1.2) 08/17/21 00:13 AST 13 units/L (5-40) 08/17/21 00:13 ALT 12 units/L (7-56) 08/17/21 00:13 Alkaline Phosphatase 152 units/L (35-129) H 08/17/21 00:13 Total Creatine Kinase 329 units/L (55-170) H 08/17/21 00:13 Troponin T 0.075 ng/mL (0.00-0.029) H 08/17/21 00:13 NT-Pro-B Natriuret Pep 32530 pg/mL (0-450) H 08/17/21 00:13 Total Protein 6.9 g/dL (6.3-8.2) 08/17/21 00:13 Albumin 4.1 g/dL (3.9-5) 08/17/21 00:13 Albumin/Globulin Ratio 1.5 % 08/17/21 00:13 Triglycerides 46 mg/dL (2-149) 08/17/21 00:13 Cholesterol 140 mg/dL (50-199) 08/17/21 00:13 LDL Cholesterol Direct 40 mg/dL (50-130) L 08/17/21 00:13 HDL Cholesterol 88 mg/dL (40-59) H 08/17/21 00:13 Cholesterol/HDL Ratio 1.59 % 08/17/21 00:13 Arterial Blood Glucose Not Reportable 08/17/21 01:30 Hepatitis A IgM Ab Non-reactive (NonReactive) 08/17/21 11:27 Hep Bs Antigen Non-reactive (Negative) 08/17/21 11:27 Hep B Core IgM Ab Non-reactive (NonReactive) 08/17/21 11:27 Hepatitis C Antibody Non-reactive (NonReactive) 08/17/21 11:27 Stringer/IV: Voiding Method Urinal Active Medications - Current Medications Current Medications: Generic Name Dose Route Start Last Admin Trade Name Freq PRN Reason Stop Dose Admin Acetaminophen 650 mg 08/17/21 01:38 Acetaminophen 325 Mg Tab PO Q4H PRN Pain MILD(1-3)/Fever >100.5/BOWER Albuterol 2.5 mg 08/17/21 01:38 Albuterol 2.5 Mg/3 Ml Nebu IH Q3HRT PRN Shortness Of Breath Carvedilol 6.25 mg 08/17/21 10:00 08/19/21 09:40 Carvedilol 6.25 Mg Tab PO 6.25 mg BID KRISTIAN Administration Clopidogrel Bisulfate 75 mg 08/18/21 10:00 08/19/21 09:39 Clopidogrel 75 Mg Tab PO 75 mg QDAY KRISTIAN Administration Doxazosin Mesylate 4 mg 08/17/21 22:00 08/19/21 10:21 Doxazosin 4 Mg Tab PO 4 mg BID KRISTIAN Administration Epoetin Bandar-epbx 20,000 unit 08/17/21 08:10 Epoetin Bandar-Epbx 20,000 Unit/1 Ml Vial SUB-Q MUKUL PRN hemodialysis Famotidine 20 mg 08/18/21 10:00 08/19/21 09:40 Famotidine 20 Mg Tab PO 20 mg DAILY KRISTIAN Administration Hydralazine HCl 10 mg 08/17/21 18:21 08/18/21 08:17 Hydralazine 20 Mg/1 Ml Inj IV 10 mg Q4HR PRN Administration SBP >/=160; DBP >/=100 Hydralazine HCl 50 mg 08/18/21 12:00 08/19/21 05:28 Hydralazine 25 Mg Tab PO 50 mg Q6HR KRISTIAN Administration Sodium Chloride 100 mls @ 999 mls/hr 08/17/21 08:07 Nacl 0.9% IV MUKUL PRN Hypotension Sodium Chloride 500 mls @ 0 mls/hr 08/19/21 09:00 08/19/21 09:41 Nacl 0.9% 500 Ml IV 08/19/21 19:00 50 mls/hr ONCE@0900 KRISTIAN Administration As Directed Isosorbide Mononitrate 60 mg 08/18/21 10:00 08/19/21 09:39 Isosorbide Mononitrate Er 60 Mg Tab PO 60 mg QDAY KRISTIAN Administration Nifedipine 90 mg 08/18/21 10:00 08/19/21 09:40 Nifedipine Xl 90 Mg Tab PO 90 mg QDAY KRISTIAN Administration Ondansetron HCl 4 mg 08/17/21 01:38 Ondansetron 4 Mg/2 Ml Inj IV Q8H PRN Nausea And Vomiting Sodium Chloride 10 ml 08/17/21 10:00 08/19/21 09:42 Sodium Chloride 0.9% 10 Ml Flush Syringe IV 10 ml BID KRISTIAN Administration Sodium Chloride 10 ml 08/17/21 01:38 Sodium Chloride 0.9% 10 Ml Flush Syringe IV PRN PRN LINE FLUSH
--- NOTE | 2021-08-19 11:39 | Progress Note ---
Assessment and Plan 1. ESRD: Patient is on maintenance hemodialysis, MWF schedule. Last outpatient HD 08/14. Hemodialysis: 08/17, 08/19. 2. FEN: Volume overload, UF with HD, monitor. Counseled to limit fluid intake. Monitor lytes and volume status. 3. Acute hypoxic respiratory failure, POA: 2/2 Acute pulmonary edema in the setting of volume overload. Echo with normal EF. Volume control thru HD. Supplemental O2 as needed. 4. Hx of DVT. 5. Hypertension: Continue home meds. Volume control thru HD. Follow BP. 6. Anemia, POA: Chronic. Epogen with HD. Monitor. 7. Hemorrhage from tongue, POA: DDAVP today. Avoid Heparin. Monitor. 8. Brugada syndrome. Subjective: Patient was seen and examined at the bedside. Doing ok. Examination: General appearance: well-developed, appears stated age, thin built, not in distress HEENT: MATT Neck: trachea midline Respiratory: ctab Heart: S1S2, no murmur Abdomen: soft, bowel sounds heard, NT, no palpable mass Integumentary: no obvious rash Neurologic: AO, non-focal Ext: no edema Hemodialysis access: L arm AVF, L IJ tunnel catheter Subjective Date of service: 08/19/21 Objective - Vital Signs Vital signs: Vital Signs - 12hr 08/19/21 08/19/21 08/19/21 04:27 09:39 09:40 Temperature 98.3 F Pulse Rate 74 72 72 Respiratory 20 Rate Blood Pressure 157/87 162/91 162/91 O2 Sat by Pulse 100 Oximetry 08/19/21 10:21 Temperature Pulse Rate 72 Respiratory Rate Blood Pressure 162/91 O2 Sat by Pulse Oximetry - Lab 08/19/21 04:53 08/19/21 04:53 Most recent lab results ABG pH 7.448 (7.320-7.450) 08/17/21 01:30 ABG O2 Saturation 88.6 (0-100) 08/17/21 01:30 Calcium 8.4 mg/dL (8.4-10.2) 08/19/21 04:53 Phosphorus 4.50 mg/dL (2.5-4.5) 08/19/21 04:53 Magnesium 2.30 mg/dL (1.7-2.3) 08/19/21 04:53 Medications & Allergies - Medications Allergies/Adverse Reactions: Allergies No Known Allergies Allergy (Unverified 04/20/13 09:48) Home Medications: Home Medications Medication Instructions Recorded Confirmed Last Taken Type carvediloL [Coreg] 6.25 mg PO BID #60 tablet 04/25/13 08/18/21 Unknown Rx Clopidogrel [Plavix] 75 mg PO QDAY 08/17/21 08/17/21 Unknown History Doxazosin [Cardura] 4 mg PO BID 08/17/21 08/17/21 Unknown History Eliquis 5 mg PO BID 08/17/21 08/17/21 Unknown History Isosorbide Mononitrate [Isosorbide 60 mg PO QDAY 08/17/21 08/17/21 Unknown History Mononitrate ER] Nifedipine ER 90 mg PO QDAY 08/17/21 08/17/21 Unknown History hydrALAZINE 100 mg PO BID 08/17/21 08/17/21 Unknown History Active Medications: Generic Name Dose Route Start Last Admin Trade Name Freq PRN Reason Stop Dose Admin Acetaminophen 650 mg 08/17/21 01:38 Acetaminophen 325 Mg Tab PO Q4H PRN Pain MILD(1-3)/Fever >100.5/BOWER Albuterol 2.5 mg 08/17/21 01:38 Albuterol 2.5 Mg/3 Ml Nebu IH Q3HRT PRN Shortness Of Breath Carvedilol 6.25 mg 08/17/21 10:00 08/19/21 09:40 Carvedilol 6.25 Mg Tab PO 6.25 mg BID KRISTIAN Administration Clopidogrel Bisulfate 75 mg 08/18/21 10:00 08/19/21 09:39 Clopidogrel 75 Mg Tab PO 75 mg QDAY KRISTIAN Administration Doxazosin Mesylate 4 mg 08/17/21 22:00 08/19/21 10:21 Doxazosin 4 Mg Tab PO 4 mg BID KRISTIAN Administration Epoetin Bandar-epbx 20,000 unit 08/17/21 08:10 Epoetin Bandar-Epbx 20,000 Unit/1 Ml Vial SUB-Q MUKUL PRN hemodialysis Famotidine 20 mg 08/18/21 10:00 08/19/21 09:40 Famotidine 20 Mg Tab PO 20 mg DAILY KRISTIAN Administration Hydralazine HCl 10 mg 08/17/21 18:08/18/21 08:17 Hydralazine 20 Mg/1 Ml Inj IV 10 mg Q4HR PRN Administration SBP >/=160; DBP >/=100 Hydralazine HCl 50 mg 08/18/21 12:00 08/19/21 05:28 Hydralazine 25 Mg Tab PO 50 mg Q6HR KRISTIAN Administration Sodium Chloride 100 mls @ 999 mls/hr 08/17/21 08:07 Nacl 0.9% IV MUKUL PRN Hypotension Sodium Chloride 500 mls @ 0 mls/hr 08/19/21 09:00 08/19/21 09:41 Nacl 0.9% 500 Ml IV 08/19/21 19:00 50 mls/hr ONCE@0900 KRISTIAN Administration As Directed Isosorbide Mononitrate 60 mg 08/18/21 10:00 08/19/21 09:39 Isosorbide Mononitrate Er 60 Mg Tab PO 60 mg QDAY KRISTIAN Administration Nifedipine 90 mg 08/18/21 10:00 08/19/21 09:40 Nifedipine Xl 90 Mg Tab PO 90 mg QDAY KRISTIAN Administration Ondansetron HCl 4 mg 08/17/21 01:38 Ondansetron 4 Mg/2 Ml Inj IV Q8H PRN Nausea And Vomiting Sodium Chloride 10 ml 08/17/21 10:00 08/19/21 09:42 Sodium Chloride 0.9% 10 Ml Flush Syringe IV 10 ml BID KRISTIAN Administration Sodium Chloride 10 ml 08/17/21 01:38 Sodium Chloride 0.9% 10 Ml Flush Syringe IV PRN PRN LINE FLUSH
--- NOTE | 2021-08-19 14:39 | Hem/Onc Consultation ---
History of Present Illness - Reason for Consult Consult date: 08/19/21 Tongue bleed, dysfunction platelets - History of Present Illness Heme consult note Discussed with RN and patient over phone Televisit cart unavailable CPT 81122 Dx Coagulopathy This is a 50yo male who presented to [facility] ED with complaints of a bleeding tongue after a bite. Known past medical history of ESRD on HD (M,W,F), DVT on Eliquis, Brugada syndrome, HTN, [place] s/p stent placement, and COPD, O2 dependent at home admitted for pulmonary edema and hypertensive urgency. Hematology consulted for evaluation of bleeding tongue. Patient reports starting Eliquis 2 months ago due to a DVT. Data reviewed below IMP: Coagulopathy, likely due to anticoagulant use, liver dysfunction S/p FFP and DDVAP due to bleeding tongue Microcytic anemia, likely related to iron deficiency and renal insufficiency R/o hemoglobinopathy, hemolysis Clotting tendency, r/o antiphospholipid syndrome Thrombocytopenia, likely related to liver dysfunction, or ITP PLAN: Labs to include iron studies, LDH, retic fibrinogen, cardiolipin ab, hemoglobin electrophoresis Monitor CBC Transfuse 1 unit RBC whenever hct <22 Hold AC due to degree of anemia Laboratory Last Values WBC 5.5 K/mm3 (4.5-11.0) 08/19/21 04:53 Hgb 7.2 gm/dl (11.8-15.2) L 08/19/21 04:53 Hct 21.6 % (35.5-45.6) L 08/19/21 04:53 MCV 83 fl (84-94) L 08/19/21 04:53 Plt Count 114 K/mm3 (140-440) L 08/19/21 04:53 PT 15.1 Sec. (12.2-14.9) H 08/17/21 23:26 INR 1.07 (0.87-1.13) 08/17/21 23:26 APTT 30.8 Sec. (24.2-36.6) 08/17/21 23:26 Creatinine 10.8 mg/dL (0.8-1.3) H 08/19/21 04:53 AST 13 units/L (5-40) 08/17/21 00:13 ALT 12 units/L (7-56) 08/17/21 00:13 Alkaline Phosphatase 152 units/L (35-129) H 08/17/21 00:13 Total Creatine Kinase 329 units/L (55-170) H 08/17/21 00:13 Hepatitis A IgM Ab Non-reactive (NonReactive) 08/17/21 11:27 Hep Bs Antigen Non-reactive (Negative) 08/17/21 11:27 Hep B Core IgM Ab Non-reactive (NonReactive) 08/17/21 11:27 Hepatitis C Antibody Non-reactive (NonReactive) 08/17/21 11:27 Blood Type B POSITIVE 08/19/21 Unknown Past History Past Medical History: ESRD, renal failure, other (Brugada Syndrome, ventral abdominal hernia) Past Surgical History: No surgical history Social history: no significant social history Family history: hypertension Medications and Allergies Allergies Allergy/AdvReac Type Severity Reaction Status Date / Time No Known Allergies Allergy Unverified 04/20/13 09:48 Home Medications Medication Instructions Recorded Confirmed Last Taken Type carvediloL [Coreg] 6.25 mg PO BID #60 tablet 04/25/13 08/18/21 Unknown Rx Clopidogrel [Plavix] 75 mg PO QDAY 08/17/21 08/17/21 Unknown History Doxazosin [Cardura] 4 mg PO BID 08/17/21 08/17/21 Unknown History Eliquis 5 mg PO BID 08/17/21 08/17/21 Unknown History Isosorbide Mononitrate [Isosorbide 60 mg PO QDAY 08/17/21 08/17/21 Unknown History Mononitrate ER] Nifedipine ER 90 mg PO QDAY 08/17/21 08/17/21 Unknown History hydrALAZINE 100 mg PO BID 08/17/21 08/17/21 Unknown History Active Meds: Active Medications Acetaminophen (Acetaminophen 325 Mg Tab) 650 mg PO Q4H PRN PRN Reason: Pain MILD(1-3)/Fever >100.5/BOWER Albuterol (Albuterol 2.5 Mg/3 Ml Nebu) 2.5 mg IH Q3HRT PRN PRN Reason: Shortness Of Breath Carvedilol (Carvedilol 6.25 Mg Tab) 6.25 mg PO BID [facility] Last Admin: 08/19/21 09:40 Dose: 6.25 mg Clopidogrel Bisulfate (Clopidogrel 75 Mg Tab) 75 mg PO QDAY [facility] Last Admin: 08/19/21 09:39 Dose: 75 mg Doxazosin Mesylate (Doxazosin 4 Mg Tab) 4 mg PO BID [facility] Last Admin: 08/19/21 10:21 Dose: 4 mg Epoetin Bandar-epbx (Epoetin Bandar-Epbx 20,000 Unit/1 Ml Vial) 20,000 unit SUB-Q MUKUL PRN PRN Reason: hemodialysis Famotidine (Famotidine 20 Mg Tab) 20 mg PO DAILY [facility] Last Admin: 08/19/21 09:40 Dose: 20 mg Hydralazine HCl (Hydralazine 20 Mg/1 Ml Inj) 10 mg IV Q4HR PRN PRN Reason: SBP >/=160; DBP >/=100 Last Admin: 08/18/21 08:17 Dose: 10 mg Hydralazine HCl (Hydralazine 25 Mg Tab) 50 mg PO Q6HR [facility] Last Admin: 08/19/21 05:28 Dose: 50 mg Sodium Chloride (Nacl 0.9%) 100 mls @ 999 mls/hr IV MUKUL PRN PRN Reason: Hypotension Sodium Chloride (Nacl 0.9% 500 Ml) 500 mls @ 0 mls/hr IV ONCE@0900 [facility] Stop: 08/19/21 19:00 Last Admin: 08/19/21 09:41 Dose: 50 mls/hr Isosorbide Mononitrate (Isosorbide Mononitrate Er 60 Mg Tab) 60 mg PO QDAY [facility] Last Admin: 08/19/21 09:39 Dose: 60 mg Nifedipine (Nifedipine Xl 90 Mg Tab) 90 mg PO QDAY [facility] Last Admin: 08/19/21 09:40 Dose: 90 mg Ondansetron HCl (Ondansetron 4 Mg/2 Ml Inj) 4 mg IV Q8H PRN PRN Reason: Nausea And Vomiting Sodium Chloride (Sodium Chloride 0.9% 10 Ml Flush Syringe) 10 ml IV BID [facility] Last Admin: 08/19/21 09:42 Dose: 10 ml Sodium Chloride (Sodium Chloride 0.9% 10 Ml Flush Syringe) 10 ml IV PRN PRN PRN Reason: LINE FLUSH Exam - Constitutional Vitals: Last Vital Signs Temp 98.7 F 08/19/21 10:50 Pulse 70 08/19/21 12:30 Resp 18 08/19/21 10:50 BP 169/104 08/19/21 12:30 Pulse Ox 98 08/19/21 10:50 Results - Labs lab Results: Laboratory Results - last 24 hr 08/18/21 08/19/21 08/19/21 11:33 04:53 04:53 WBC 5.5 RBC 2.61 L Hgb 7.2 L Hct 21.6 L MCV 83 L MCH 28 MCHC 33 RDW 20.3 H Plt Count 114 L Sodium 137 Potassium 3.8 Chloride 97.3 L Carbon Dioxide 23 Anion Gap 21 BUN 64 H Creatinine 10.8 H Estimated GFR 6 BUN/Creatinine Ratio 6 Glucose 73 L POC Glucose 74 Calcium 8.4 Phosphorus 4.50 Magnesium 2.30 Blood Type 08/19/21 Unknown WBC RBC Hgb Hct MCV MCH MCHC RDW Plt Count Sodium Potassium Chloride Carbon Dioxide Anion Gap BUN Creatinine Estimated GFR BUN/Creatinine Ratio Glucose POC Glucose Calcium Phosphorus Magnesium Blood Type B POSITIVE
[2021-08-19] MEDS ORDERED: diphenhydrAMINE 50 MG/ML VIAL IV ONE (22:14)
[2021-08-20 05:05] LABS: Hematocrit 21.7 % (35.5-45.6); Hemoglobin 7.1 gm/dl (11.8-15.2); Mean Corpuscular HGB Conc 33 % (32-34); Mean Corpuscular Volume 83 fl (84-94); Platelet Count 133 K/mm3 (140-440); Red Blood Count 2.63 M/mm3 (3.65-5.03)
[2021-08-20 05:06] LABS: Red Cell Distribution Width 20.5 % (13.2-15.2)
[2021-08-20 05:26] LABS: Calcium 8.4 mg/dL (8.4-10.2)
--- NOTE | 2021-08-20 06:45 | Progress Note ---
Assessment and Plan 1. ESRD: Patient is on maintenance hemodialysis, MWF schedule. Last outpatient HD 08/14. Hemodialysis: 08/17, 08/19. 2. FEN: Volume overload, UF with HD, monitor. Counseled to limit fluid intake. Monitor lytes and volume status. 3. Acute hypoxic respiratory failure, POA: 2/2 Acute pulmonary edema in the setting of volume overload. Echo with normal EF. Volume control thru HD. On RA now. Supplemental O2 as needed. 4. Hx of DVT. 5. Hypertension: Continue home meds. Volume control thru HD. Follow BP. 6. Anemia, POA: Chronic. Epogen with HD. Monitor. 7. Hemorrhage from tongue, POA: DDAVP today. Avoid Heparin. Monitor. 8. Brugada syndrome. 9. Requested Vascular for removal of IJ dialysis catheter. Able to use AVF without any difficulty. Subjective: Patient was seen and examined at the bedside. Doing better. Examination: General appearance: well-developed, appears stated age, thin built, not in distress, on RA HEENT: MATT Neck: trachea midline Respiratory: ctab Heart: S1S2, no murmur Abdomen: soft, bowel sounds heard, NT, no palpable mass Integumentary: no obvious rash Neurologic: AO, non-focal Ext: no edema Hemodialysis access: L arm AVF, L IJ tunnel catheter Subjective Date of service: 08/20/21 Objective - Vital Signs Vital signs: Vital Signs - 12hr 08/19/21 08/19/21 08/19/21 19:04 20:23 21:05 Temperature 98.4 F 98.2 F Pulse Rate 82 63 Respiratory 16 16 Rate Blood Pressure 159/87 158/86 O2 Sat by Pulse 100 98 98 Oximetry 08/19/21 08/19/21 08/20/21 22:00 23:47 04:55 Temperature 99.1 F 98.7 F Pulse Rate 83 80 Respiratory 18 18 18 Rate Blood Pressure 149/84 151/88 O2 Sat by Pulse 97 97 98 Oximetry - Lab 08/20/21 04:24 08/20/21 04:24 Most recent lab results ABG pH 7.448 (7.320-7.450) 08/17/21 01:30 ABG O2 Saturation 88.6 (0-100) 08/17/21 01:30 Calcium 8.4 mg/dL (8.4-10.2) 08/20/21 04:24 Phosphorus 4.50 mg/dL (2.5-4.5) 08/19/21 04:53 Magnesium 2.30 mg/dL (1.7-2.3) 08/19/21 04:53 Medications & Allergies - Medications Allergies/Adverse Reactions: Allergies No Known Allergies Allergy (Unverified 04/20/13 09:48) Home Medications: Home Medications Medication Instructions Recorded Confirmed Last Taken Type carvediloL [Coreg] 6.25 mg PO BID #60 tablet 04/25/13 08/18/21 Unknown Rx Clopidogrel [Plavix] 75 mg PO QDAY 08/17/21 08/17/21 Unknown History Doxazosin [Cardura] 4 mg PO BID 08/17/21 08/17/21 Unknown History Isosorbide Mononitrate [Isosorbide 60 mg PO QDAY 08/17/21 08/17/21 Unknown History Mononitrate ER] Famotidine [Pepcid] 20 mg PO DAILY #30 tablet 08/20/21 Unknown Rx Hydralazine HCl 50 mg PO TID #90 tab 08/20/21 Unknown Rx NIFEdipine XL [Procardia Xl] 90 mg PO QDAY #60 tablet 08/20/21 Unknown Rx Active Medications: Generic Name Dose Route Start Last Admin Trade Name Freq PRN Reason Stop Dose Admin Acetaminophen 650 mg 08/17/21 01:38 Acetaminophen 325 Mg Tab PO Q4H PRN Pain MILD(1-3)/Fever >100.5/BOWER Albuterol 2.5 mg 08/17/21 01:38 Albuterol 2.5 Mg/3 Ml Nebu IH Q3HRT PRN Shortness Of Breath Carvedilol 6.25 mg 08/17/21 10:00 08/19/21 22:42 Carvedilol 6.25 Mg Tab PO 6.25 mg BID KRISTIAN Administration Clopidogrel Bisulfate 75 mg 08/18/21 10:00 08/19/21 09:39 Clopidogrel 75 Mg Tab PO 75 mg QDAY KRISTIAN Administration Doxazosin Mesylate 4 mg 08/17/21 22:00 08/19/21 22:42 Doxazosin 4 Mg Tab PO 4 mg BID KRISTIAN Administration Epoetin Bandar-epbx 20,000 unit 08/17/21 08:10 Epoetin Bandar-Epbx 20,000 Unit/1 Ml Vial SUB-Q MUKUL PRN hemodialysis Famotidine 20 mg 08/18/21 10:00 08/19/21 09:40 Famotidine 20 Mg Tab PO 20 mg DAILY KRISTIAN Administration Hydralazine HCl 10 mg 08/17/21 18:21 08/18/21 08:17 Hydralazine 20 Mg/1 Ml Inj IV 10 mg Q4HR PRN Administration SBP >/=160; DBP >/=100 Hydralazine HCl 50 mg 08/18/21 12:00 08/19/21 17:10 Hydralazine 25 Mg Tab PO 50 mg Q6HR KRISTIAN Administration Sodium Chloride 100 mls @ 999 mls/hr 08/17/21 08:07 Nacl 0.9% IV MUKUL PRN Hypotension Isosorbide Mononitrate 60 mg 08/18/21 10:00 08/19/21 09:39 Isosorbide Mononitrate Er 60 Mg Tab PO 60 mg QDAY KRISTIAN Administration Nifedipine 90 mg 08/18/21 10:00 08/19/21 09:40 Nifedipine Xl 90 Mg Tab PO 90 mg QDAY KRISTIAN Administration Ondansetron HCl 4 mg 08/17/21 01:38 Ondansetron 4 Mg/2 Ml Inj IV Q8H PRN Nausea And Vomiting Sodium Chloride 10 ml 08/17/21 10:00 08/19/21 22:42 Sodium Chloride 0.9% 10 Ml Flush Syringe IV 10 ml BID KRISTIAN Administration Sodium Chloride 10 ml 08/17/21 01:38 Sodium Chloride 0.9% 10 Ml Flush Syringe IV PRN PRN LINE FLUSH
--- NOTE | 2021-08-20 09:34 | Event Note ---
Date: 08/20/21 Saw and evaluated patient at bedside. Patient with left upper arm fistula that is functioning. Patient has an indwelling left chest wall tunneled hemodialysis catheter. Prominent chest wall veins identified. The catheter cuff was dissected free. There appears to be some resistance to removing the remainder of the catheter and the procedure at bedside was therefore terminated. The patient will be brought down to the Factory Clerk for better visualization for PermCath removal. Patient stable throughout the procedure.
--- NOTE | 2021-08-20 09:35 | Discharge Summary ---
Providers - Providers Date of Admission: 08/17/21 06:39 Attending physician: HEMANTH LOPEZ MD 08/17/21 01:09 Consult to Physician [CONS] Urgent Comment: Dr. Gamboa spoke with Dr. Bangura @ [id number] Consulting Provider: HARRIS BANGURA Physician Instructions: Reason For Exam: esrd 08/17/21 01:34 Consult to Physician [CONS] Urgent Comment: Dr. Gamboa spoke with Dr. Goodman @ 0137 Consulting Provider: ANJEL GOODMAN Physician Instructions: Reason For Exam: htn emergency 08/19/21 08:40 Consult to Physician [CONS] Routine Comment: Consulting Provider: MILI KEENE Physician Instructions: Reason For Exam: tongue bleed ?dysfunctional platelet in a HD PT 08/19/21 11:39 Consult to Interventional Radiology [CONS] Routine Consulting Provider: HO SCHUSTER Reason For Exam: To remove Tunnel hemodialysis catheter. Place consult to:: DR. SCHUSTER Notified:: OFFICE Phone number called:: [phone] Was contact made?: Yes If yes, spoke with:: SIGRID Time called:: 12:11 Comment:: LEFT MESSAGE ON A.S. @ 12:09 & SIGRID CALL BACK Primary care physician: KATE GEIGER Hospitalization Reason for admission: Oral bleed Condition: Stable Hospital course: This is a 50-year-old male with known past medical history of ESRD on HD(M,W,F), DVT on Eliquis, Brugada syndrome, HTN, WI s/p stent placement, and COPD, O2 dep endent at home admitted for pulmonary edema and hypertensive urgency. Hospital Course to Date: 08/17: Patient seen and examined at the bedside. Patient is fully AAO, on HHFL at 40% and 20L SPO2 above 92%. Patient still with dyspnea with exertion, plan for HD today per Nephrology. Oral bleeding resolved, H&H remains strable, will resume home AC- Eliquis. Left upper chest Permacath and LUE Av-fistula noted, per patient plan was to remove permacath two weeks ago however appointment was rescheduled due to unforeseen events. D/w Nephro plan for possible permacath removal sometimes this week. Patient remains on Nitro gtt, still hypertensive this am. Will resume patient's home antihypertensive regimen. Titrate Nitro gtt for SBP less than 160. [facility] is also following. Diagnosis and plan of care discussed with patient at the bedside. Patient verbalized understanding and agreed with current plan of care. All questions and concerns addressed at this time. Team will continue to f/u with any further updates. 08/18: Tolerated HD yesterday, 4.5L removed. Now stable on 3L NC SPO2 at 100%. Patient is off Nitro gtt this am, SBP in he 170s, home antihypertensive resumed. Patient reported that he had a heart attack in the past and a stent was placed at that time but he does not see a line supply. 2D echo pending. D/W [facility] patient is stable for transfer to the floor. 08/19: Patient seen and examined this morning still with bleeding his tongue. This is a clear demarcated area of laceration but doubt that this is could have been caused by bite. Hemoglobin is 7.2 I have ordered DDAVP and consultation with the presser automatic. Also ordered FFP and consultation with a ethylbenzene converter operator that I consulted. We will hold his Eliquis at this time. Also on Eliquis he probably will benefit from the lower dose being that he has renal impediment. He may need transfusion we will monitor H&H in a.m.. I have provided extensive counseling to the patient about his underlying clinical condition. We will check a vitamin D level and further management as tolerated I will try to find out when this patient experienced his DVT and if he truly should still remain on Eliquis so this can be stopped safely. 08/20: Patient seen and examined this morning no further tongue bleeding noted. He did have an episode of nasal bleed last night. This was transient. His treatment so far has included DD KITCHEN HAND and a unit of FFP which seemed to have helped. He was seen by vascular and noted to have a left upper arm fistula that is functioning as a result today indwelling left chest wall tunneled hemodialysis catheter was removed. Catheter cuff was noted to be dissected free and presumably completed in the Termite Helper due to noted resistance. Otherwise clinically the patient has been doing well I did discuss with him that gaming cashier we also saw the patient and a work-up for coagulopathy was ensued. They noted that the patient was started on Eliquis about 2 months ago the patient stated was 3 months ago due to DVT, ideally he is completed the course of the Eliquis and as a result we will discontinue totally per hematology recommendation of my discussion with the. Iron study work-up did reveal severe iron deficiency anemia for which patient will be discharged on iron and also recommend to follow-up with ethylbenzene converter operator outpatient further work-up is pending. Nephrology was comfortable to for patient to be discharged with a hemoglobin of 7.1 and no further transfusion needed at this time. Extensive counseling was discussed with the patient based on this finding again no seizure was noted during this hospital stay and he is to follow-up with his primary care physician for further management. Assessment and Plan #Acute Hypoxemic Respiratory Failure 05/13 #Pulmonary Edema #COPD, O2 Dependent - Presented with SOB, dyspnea required HHFL - CXR suggesting pulmonary edema - HD yesterday, 4.5L removed - Patient down to 3L NC this am SPO2 at 100% - CCM consulted, appreciate recommendations - Continue bronchodilators per CCM - Continue O2 supplementation, wean to home O2 at 2L as tolerated - Continue HD per Nephro - Continue SPO2 monitoring for SPO2 goal above 92% #Hypertensive Urgency #Cardiomegaly #Possible CHF #H/o Brugada syndrome and WI with Stent placement - Presented with SBP in the 190s requiring Nitroglcerin gtt - Nitro gtt off this am, SBP still in the 170 - Home antihypertensives and antiplatelets resumed - 2D echo pending - Continue blood pressure monitor per protocol - PRN hydralazine for SBP greater than 160 #End Stage Renal Disease(ESRD) on HD - regular days M,W,F - Per patient last HD day was on Tuesday prior to admit - Nephrology on consult, appreciated recommendation - HD yesterday, 4.5L removed - Continue HD per Nephro - Strict intake and output - Avoid nephrotoxic medications; Renally dose medications - Monitor and replace electrolytes as needed #Anemia of Chronic Disease #Hemorrhage of Tongue-resolved - Presented with heavy oral bleeding after bitting his tongue - s/p DDAVP in the ED - Bleeding resolved, H&H remains stable - Continue to monitor for s/s of any bleeding - Trend H&H - Transfuse for hemoglobin less than 7 - Continue Epogen per Nephro #H/o DVT -Hold Eliquis, SCDs for now #GI/DVT Prophylaxis - PPI- Pepcid -Hold, SCDs Eliquis Disposition: HOME / SELF CARE / HOMELESS Final Discharge Diagnosis (Prints w/discharge instructions): Acute Hypoxemic Respiratory Failure 2/2. #Pulmonary Edema. #COPD, O2 Dependent. #Hypertensive Urgency. #Cardiomegaly. #Possible CHF. #H/o Brugada syndrome and WI with Stent placement. #End Stage Renal Disease(ESRD) on HD. #Anemia of Chronic Disease. #Secondary coagulopathy. #Hemorrhage of Tongue-resolved Time spent for discharge: 35 MINS Core Measure Documentation - Palliative Care Palliative Care/ Comfort Measures: Not Applicable - Core Measures Any of the following diagnoses?: none Exam - Physical Exam Narrative exam: General appearance: Present: no acute distress, well-nourished - EENT Eyes: Present: PERRL, tongue laceration withOUT obvious bleeding noted TODAY. ENT: hearing intact - Neck Neck: Present: normal ROM - Respiratory Respiratory effort: normal Respiratory: bilateral: diminished - Cardiovascular Rhythm: regular Heart Sounds: Present: S1 & S2 - Extremities Extremities: no ischemia, pulses intact, pulses symmetrical Peripheral Pulses: within normal limits, LEFT UPPER EXT AV FISTULA WITH PALPABLE THRILL - Abdominal General gastrointestinal: soft, non-distended, normal bowel sounds - Integumentary Integumentary: Present: clear, warm, dry - Psychiatric Psychiatric: appropriate mood/affect, cooperative - Neurologic Neurologic: CNII-XII intact, moves all extremities - Allied Health Allied health notes reviewed: nursing - Constitutional Vitals: Temp Pulse Resp BP Pulse Ox 98.7 F 80 18 151/88 98 08/20/21 04:55 08/20/21 04:55 08/20/21 04:55 08/20/21 04:55 08/20/21 04:55 Plan Activity: advance as tolerated, fall precautions Diet: renal Special Instructions: restrict fluid intake to (1200CC/DAY), record daily weights, record daily BP diary Plan of Treatment: Please stop Eliquis. Follow up with: KATE GEIGER MD [Primary Care Provider] - 3-5 Days HARRIS BANGURA MD [Staff Physician] - 7 Days VENANCIO IRENE MD [Staff Physician] - 7 Days Prescriptions: Hydralazine HCl 50 mg PO TID #90 tab Famotidine [Pepcid] 20 mg PO DAILY #30 tablet NIFEdipine XL [Procardia Xl] 90 mg PO QDAY #60 tablet
[2021-08-20] MEDS ORDERED: HEPARIN/NS 5000 UNIT/500ML 500 ML IR ONE (09:43)
[2021-08-20] MEDS ORDERED: LIDOCAINE (1%) 10 MG/1 ML VIAL 20 ML MDV ONE (09:43)
[2021-08-20] MEDS: FAMOTIDINE 20 MG TAB PO SCH (09:48)
[2021-08-20] MEDS: CLOPIDOGREL 75 MG TAB PO SCH (09:48)
[2021-08-20] MEDS: NIFEdipine XL 90 MG TAB PO SCH (09:48)
[2021-08-20] MEDS: carvediloL 6.25 MG TAB PO SCH (09:48)
[2021-08-20] MEDS: DOXAZOSIN 4 MG TAB PO SCH (09:49)
[2021-08-20] MEDS ORDERED: SODIUM CHLORIDE 0.9% 250ML 250 ML ONE (09:54)
--- NOTE | 2021-08-20 09:57 | Hem/Onc Progress Note ---
Subjective Date of service: 08/20/21 Interval history: Heme Data Review 50yo male with complaints of a bleeding tongue after a bite Known past medical history of ESRD on HD (M,W,F), DVT on Eliquis, Brugada syndrome, HTN, [place] s/p stent placement, and COPD, O2 dependent at home admitted for pulmonary edema and hypertensive urgency Hematology following for bleeding tongue,and Eliquis management. Patient reports starting Eliquis 2 months ago due to a DVT. Discharge plan today Data reviewed below IMP: Coagulopathy, likely due to anticoagulant use, liver dysfunction S/p FFP and DDVAP due to bleeding tongue Microcytic anemia, likely related to iron deficiency, hemolysis, renal insufficiency R/o hemoglobinopathy Clotting tendency, r/o antiphospholipid syndrome Thrombocytopenia, likely related to liver dysfunction, or ITP PLAN: Ok to discontinue Eliquis due to degree of anemia Outpatient Hematology follow up with Dr. Victor M Celestin Laboratory Last Values WBC 4.2 K/mm3 (4.5-11.0) L 08/20/21 04:24 RBC 2.63 M/mm3 (3.65-5.03) L 08/20/21 04:24 Hgb 7.1 gm/dl (11.8-15.2) L 08/20/21 04:24 Hct 21.7 % (35.5-45.6) L 08/20/21 04:24 MCV 83 fl (84-94) L 08/20/21 04:24 MCH 27 pg (28-32) L 08/20/21 04:24 MCHC 33 % (32-34) 08/20/21 04:24 RDW 20.5 % (13.2-15.2) H 08/20/21 04:24 Plt Count 133 K/mm3 (140-440) L 08/20/21 04:24 Lymph % (Auto) 15.2 % (13.4-35.0) 08/18/21 04:47 [place] % (Auto) 8.3 % (0.0-7.3) H 08/18/21 04:47 Eos % (Auto) 5.9 % (0.0-4.3) H 08/18/21 04:47 Baso % (Auto) 0.9 % (0.0-1.8) 08/18/21 04:47 Lymph # (Auto) 0.7 K/mm3 (1.2-5.4) L 08/18/21 04:47 [place] # (Auto) 0.3 K/mm3 (0.0-0.8) 08/18/21 04:47 Eos # (Auto) 0.2 K/mm3 (0.0-0.4) 08/18/21 04:47 Baso # (Auto) 0.1 K/mm3 (0.0-0.1) 08/18/21 04:47 Seg Neutrophils % 68.4 % (40.0-70.0) 08/18/21 04:47 Seg Neutrophils # 2.9 K/mm3 (1.8-7.7) 08/18/21 04:47 Percent Retic 3.04 % (0.78-2.58) H 08/20/21 04:24 PT 15.1 Sec. (12.2-14.9) H 08/17/21 23:26 INR 1.07 (0.87-1.13) 08/17/21 23:26 APTT 30.8 Sec. (24.2-36.6) 08/17/21 23:26 Fibrinogen 381 mg/dl (211-480) 08/20/21 04:24 ABG pH 7.448 (7.320-7.450) 08/17/21 01:30 POC ABG pCO2 31.9 mmHg (32.0-48.0) L 08/17/21 01:30 POC ABG pO2 53.3 mmHg (83-108) L 08/17/21 01:30 POC ABG HCO3 21.6 08/17/21 01:30 ABG O2 Saturation 88.6 (0-100) 08/17/21 01:30 POC ABG Base Excess -1.8 08/17/21 01:30 ABG Hemoglobin 10.9 (12.0-17.5) L 08/17/21 01:30 ABG Oxyhemoglobin 87.9 (94-98) L 08/17/21 01:30 ABG Methemoglobin 0.3 (0.0-1.5) 08/17/21 01:30 ABG Sodium Not Reportable 08/17/21 01:30 ABG Potassium Not Reportable 08/17/21 01:30 ABG Chloride Not Reportable 08/17/21 01:30 ABG Glucose Not Reportable 08/17/21 01:30 Carboxyhemoglobin 0.5 (0.5-1.5) 08/17/21 01:30 FiO2 % 21.0 08/17/21 01:30 Sodium 135 mmol/L (137-145) L 08/20/21 04:24 Potassium 3.6 mmol/L (3.6-5.0) 08/20/21 04:24 Chloride 95.9 mmol/L (98-107) L 08/20/21 04:24 Carbon Dioxide 25 mmol/L (22-30) 08/20/21 04:24 Anion Gap 18 mmol/L 08/20/21 04:24 BUN 47 mg/dL (9-20) H 08/20/21 04:24 Creatinine 8.1 mg/dL (0.8-1.3) H 08/20/21 04:24 Creatinine 8.4 mg/dL (0.8-1.3) H 08/20/21 04:24 Estimated GFR 8 ml/min 08/20/21 04:24 Estimated GFR 9 ml/min 08/20/21 04:24 BUN/Creatinine Ratio 6 % 08/20/21 04:24 Glucose 88 mg/dL (75-100) 08/20/21 04:24 POC Glucose 74 mg/dL (70-105) 08/18/21 11:33 Calcium 8.4 mg/dL (8.4-10.2) 08/20/21 04:24 Phosphorus 4.50 mg/dL (2.5-4.5) 08/19/21 04:53 Magnesium 2.30 mg/dL (1.7-2.3) 08/19/21 04:53 Iron 43 ug/dL (49-181) L 08/20/21 04:24 TIBC 235 mcg/dL (250-450) L 08/20/21 04:24 Ferritin 1232.0 ng/mL (30.0-300.0) H 08/20/21 04:24 Total Bilirubin 0.60 mg/dL (0.1-1.2) 08/17/21 00:13 AST 13 units/L (5-40) 08/17/21 00:13 ALT 12 units/L (7-56) 08/17/21 00:13 Alkaline Phosphatase 152 units/L (35-129) H 08/17/21 00:13 Lactate Dehydrogenase 191 units/L (91-180) H 08/20/21 04:24 Total Creatine Kinase 329 units/L (55-170) H 08/17/21 00:13 Troponin T 0.075 ng/mL (0.00-0.029) H 08/17/21 00:13 NT-Pro-B Natriuret Pep 15876 pg/mL (0-450) H 08/17/21 00:13 Total Protein 6.9 g/dL (6.3-8.2) 08/17/21 00:13 Albumin 4.1 g/dL (3.9-5) 08/17/21 00:13 Albumin/Globulin Ratio 1.5 % 08/17/21 00:13 Triglycerides 46 mg/dL (2-149) 08/17/21 00:13 Cholesterol 140 mg/dL (50-199) 08/17/21 00:13 LDL Cholesterol Direct 40 mg/dL (50-130) L 08/17/21 00:13 HDL Cholesterol 88 mg/dL (40-59) H 08/17/21 00:13 Cholesterol/HDL Ratio 1.59 % 08/17/21 00:13 Arterial Blood Glucose Not Reportable 08/17/21 01:30 Hepatitis A IgM Ab Non-reactive (NonReactive) 08/17/21 11:27 Hep Bs Antigen Non-reactive (Negative) 08/17/21 11:27 Hep B Core IgM Ab Non-reactive (NonReactive) 08/17/21 11:27 Hepatitis C Antibody Non-reactive (NonReactive) 08/17/21 11:27 Blood Type B POSITIVE 08/19/21 Unknown Objective - Constitutional Vitals: Last Vital Signs Temp 98.7 F 08/20/21 04:55 Pulse 80 08/20/21 09:49 Resp 18 08/20/21 04:55 BP 153/86 08/20/21 09:49 Pulse Ox 98 08/20/21 04:55 - Labs Lab Results: Laboratory Results - last 24 hr 08/19/21 08/20/21 08/20/21 Unknown 04:24 04:24 WBC 4.2 L RBC 2.63 L Hgb 7.1 L Hct 21.7 L MCV 83 L MCH 27 L MCHC 33 RDW 20.5 H Plt Count 133 L Percent Retic 3.04 H Fibrinogen Sodium Potassium Chloride Carbon Dioxide Anion Gap BUN Creatinine 8.4 H Estimated GFR 8 BUN/Creatinine Ratio Glucose Calcium Iron TIBC Ferritin Lactate Dehydrogenase Blood Type B POSITIVE 08/20/21 08/20/21 08/20/21 04:24 04:24 04:24 WBC RBC Hgb Hct MCV MCH MCHC RDW Plt Count Percent Retic Fibrinogen 381 Sodium 135 L Potassium 3.6 Chloride 95.9 L Carbon Dioxide 25 Anion Gap 18 BUN 47 H Creatinine 8.1 H Estimated GFR 9 BUN/Creatinine Ratio 6 Glucose 88 Calcium 8.4 Iron 43 L TIBC 235 L Ferritin 1232.0 H Lactate Dehydrogenase 191 H Blood Type Medications & Allergies - Medications Allergies/Adverse Reactions: Allergies No Known Allergies Allergy (Unverified 04/20/13 09:48) Home Medications: Home Medications Medication Instructions Recorded Confirmed Last Taken Type carvediloL [Coreg] 6.25 mg PO BID #60 tablet 04/25/13 08/18/21 Unknown Rx Clopidogrel [Plavix] 75 mg PO QDAY 08/17/21 08/17/21 Unknown History Doxazosin [Cardura] 4 mg PO BID 08/17/21 08/17/21 Unknown History Isosorbide Mononitrate [Isosorbide 60 mg PO QDAY 08/17/21 08/17/21 Unknown Hist ory Mononitrate ER] Famotidine [Pepcid] 20 mg PO DAILY #30 tablet 08/20/21 Unknown Rx Hydralazine HCl 50 mg PO TID #90 tab 08/20/21 Unknown Rx NIFEdipine XL [Procardia Xl] 90 mg PO QDAY #60 tablet 08/20/21 Unknown Rx Active Medications: Generic Name Dose Route Start Last Admin Trade Name Freq PRN Reason Stop Dose Admin Acetaminophen 650 mg 08/17/21 01:38 Acetaminophen 325 Mg Tab PO Q4H PRN Pain MILD(1-3)/Fever >100.5/BOWER Albuterol 2.5 mg 08/17/21 01:38 Albuterol 2.5 Mg/3 Ml Nebu IH Q3HRT PRN Shortness Of Breath Carvedilol 6.25 mg 08/17/21 10:00 08/20/21 09:48 Carvedilol 6.25 Mg Tab PO 6.25 mg BID KRISTIAN Administration Clopidogrel Bisulfate 75 mg 08/18/21 10:00 08/20/21 09:48 Clopidogrel 75 Mg Tab PO 75 mg QDAY KRISTIAN Administration Doxazosin Mesylate 4 mg 08/17/21 22:00 08/20/21 09:49 Doxazosin 4 Mg Tab PO 4 mg BID KRISTIAN Administration Epoetin Bandar-epbx 20,000 unit 08/17/21 08:10 Epoetin Bandar-Epbx 20,000 Unit/1 Ml Vial SUB-Q MUKUL PRN hemodialysis Famotidine 20 mg 08/18/21 10:00 08/20/21 09:48 Famotidine 20 Mg Tab PO 20 mg DAILY KRISTIAN Administration Hydralazine HCl 10 mg 08/17/21 18:21 08/18/21 08:17 Hydralazine 20 Mg/1 Ml Inj IV 10 mg Q4HR PRN Administration SBP >/=160; DBP >/=100 Hydralazine HCl 50 mg 08/18/21 12:00 08/19/21 17:10 Hydralazine 25 Mg Tab PO 50 mg Q6HR KRISTIAN Administration Sodium Chloride 100 mls @ 999 mls/hr 08/17/21 08:07 Nacl 0.9% IV MUKUL PRN Hypotension Isosorbide Mononitrate 60 mg 08/18/21 10:00 08/20/21 09:49 Isosorbide Mononitrate Er 60 Mg Tab PO 60 mg QDAY KRISTIAN Administration Nifedipine 90 mg 08/18/21 10:00 08/20/21 09:48 Nifedipine Xl 90 Mg Tab PO 90 mg QDAY KRISTIAN Administration Ondansetron HCl 4 mg 08/17/21 01:38 Ondansetron 4 Mg/2 Ml Inj IV Q8H PRN Nausea And Vomiting Oxymetazoline HCl 2 spray 08/20/21 11:00 Oxymetazoline 0.05% Nasal [place] 08/20/21 11:01 ONCE ONE Sodium Chloride 10 ml 08/17/21 10:00 08/20/21 09:53 Sodium Chloride 0.9% 10 Ml Flush Syringe IV 10 ml BID KRISTIAN Administration Sodium Chloride 10 ml 08/17/21 01:38 Sodium Chloride 0.9% 10 Ml Flush Syringe IV PRN PRN LINE FLUSH
--- NOTE | 2021-08-20 10:58 | Operative Report ---
Operative Report Operative Report: Exam: PermCath removal Clinical indication: Patient with a history of end-stage renal disease who is dialyzed over the last month or a left upper arm AV access. Patient has an indwelling left chest wall tunneled hemodialysis catheter. Patient has prominent chest wall veins. Date: 08/20/2021 Procedure: Following an explanation of the risk, benefits and alternatives; written informed consent was obtained. The patient was brought to the angiographic suite and placed in supine position on the examination table. The patient did require a wedge secondary to baseline shortness of breath that is been present since prior to his admission. Initial fluoroscopic views of the indwelling tunneled hemodialysis catheter were obtained which demonstrate that the tip appears to terminate in the SVC. There appears to be kinking at the tip of the catheter from prior placement. The patient's left chest wall and indwelling catheter were prepped and draped in usual sterile fashion. A 0.035 Glidewire was then advanced through the venous port into the atrium. The catheter was then withdrawn proximally however, there appears to be some resistance centrally. With the catheter withdrawn, contrast was injected which demonstrates that the catheter does not appear to be adherent to the SVC. Would suspect that there is extensive scar tissue at the catheter entrance into the internal jugular vein. With a Glidewire and the right atrium, the catheter was manipulated free. The catheter was then withdrawn proximally into the internal jugular vein. Contrast was injected which demonstrates that the central veins are widely patent and no venous injury or extravasation is identified. The catheter was then removed over the guidewire and the guidewire removed. The catheter was inspected and is intact. The previously noted kinking under fluoroscopy has resolved as a result of wire bias. Hemostasis was achieved using mini compression and the catheter exit site was sterilely dressed. The patient tolerated the procedure well. There were no immediate postprocedure complications. No sedation was utilized. Continuous cardiopulmonary monitoring is utilized. Impression: 1) Patient with previously attempted removal of PermCath at bedside terminated secondary to resistance in the central aspect of the catheter after the cuff was dissected free and withdrawn. 2) Fluoroscopic guided evaluation of the central veins both pre and post catheter removal demonstrating patency at both time intervals with no evidence of venous injury. 3) Fluoroscopic imaging demonstrating kinking of the catheter at the tip. This may have resulted in some fibrous buildup resulting in some difficulty in removal of the catheter versus extensive scar formation at the catheter extrance site into the vein. Imaging obtained following removal demonstrated no venous injury.
[2021-08-20] MEDS ORDERED: OXYMETAZOLINE 0.05% NASAL SPRAY NS ONE (11:00)
[2021-08-20] MEDS: hydrALAZINE 25 MG TAB PO SCH ×2 (12:35→13:37)
[2021-08-20 16:12] VITALS: BP 137/83
[2021-08-22 12:16] LABS: Vitamin D, 25-OH, D2 34 ng/mL
[2021-08-22 14:27] LABS: Cardiolipin Ab IgA <2.0 APL-U/mL (<20.0); Cardiolipin Ab IgG <2.0 GPL-U/mL (<20.0); Cardiolipin Ab IgM <2.0 MPL-U/mL (<20.0)
== END 2021-08-20 17:25 | disposition home or self-care (01) | DRG 189 ==
LOC: ED 22:11 → CC1 08-17 06:39 → 3A 08-18 15:57
PROVIDERS: ADMIT Hospitalist; ATTEND Internal Medicine
PROC: 4A033R1 Measurement of Arterial Saturation, Peripheral, Percutaneous Approach (ICD-10-PCS; 2021-08-17)
PROC: 5A1D70Z Performance of Urinary Filtration, Intermittent, Less than 6 Hours Per Day (ICD-10-PCS; 2021-08-17)
PROC: 5A0935A Assistance with Respiratory Ventilation, Less than 24 Consecutive Hours, High Flow/Velocity Cannula (ICD-10-PCS; 2021-08-17)
PROC: 30233K1 Transfusion of Nonautologous Frozen Plasma into Peripheral Vein, Percutaneous Approach (ICD-10-PCS; principal; 2021-08-19)
PROC: 5A1D70Z Performance of Urinary Filtration, Intermittent, Less than 6 Hours Per Day (ICD-10-PCS; 2021-08-19)
PROC: 0JPTXXZ Removal of Tunneled Vascular Access Device from Trunk Subcutaneous Tissue and Fascia, External Approach (ICD-10-PCS; 2021-08-20)
PROC: 02PYX3Z Removal of Infusion Device from Great Vessel, External Approach (ICD-10-PCS; 2021-08-20)
DX: J96.01 Acute respiratory failure with hypoxia (principal); N18.6 End stage renal disease; I16.1 Hypertensive emergency; J81.1 Chronic pulmonary edema; I11.0 Hypertensive heart disease with heart failure; I50.9 Heart failure, unspecified; K14.8 Other diseases of tongue; I49.8 Other specified cardiac arrhythmias; D63.8 Anemia in other chronic diseases classified elsewhere; Z82.49 Family history of ischemic heart disease and other diseases of the circulatory system
CPT/HCPCS: 36415; 36589; 71045; 80048; 80053; 80061; 80074; 82306; 82550; 82565; 82652; 82728; 82805; 82962; 83550; 83615; 83735; 83880; 84100; 84484; 85025; 85027; 85045; 85384; 85610; 85730; 86147; 86900; 86901; 93005; 93306; 94640; 94644; 94760; 96365; 96375; 99291; G0378; J3490; C1769; C8929; J0360; J1200; J1644; J1940; J2597; J7040; J7050; P9017; Q9967

== ENCOUNTER 2021-09-08 20:22 | Inpatient (IN) | payer SELFPAY ==
[2021-09-08] MEDS ORDERED: hydrALAZINE 20 MG/1 ML INJ IV ONE (21:29)
--- NOTE | 2021-09-08 21:34 | Emergency Department Report ---
ED Shortness of Breath HPI - General Chief Complaint: Dyspnea/Respdistress Stated Complaint: NATALY Time Seen by Provider: 09/08/21 21:28 Source: patient, EMS Mode of arrival: Stretcher Limitations: No Limitations - History of Present Illness Initial Comments: Patient is 50 years old male with history of end-stage renal disease on hemodialysis. Patient got dialyzed yesterday. Patient is also COPD with oxygen dependent at home. Patient brought to the emergency room via EMS for evaluation of shortness of breath and difficulty in breathing that started this morning. Patient denies any fever or chills. He denies any chest pain. Patient stated that he is compliant with his dialysis. MD Complaint: shortness of breath, cough -: Sudden, This afternoon Known History Of: COPD, congestive heart failure - Related Data Home Medications Medication Instructions Recorded Confirmed Last Taken Clopidogrel [Plavix] 75 mg PO QDAY 08/17/21 08/17/21 Unknown Doxazosin [Cardura] 4 mg PO BID 08/17/21 08/17/21 Unknown Isosorbide Mononitrate [Isosorbide 60 mg PO QDAY 08/17/21 08/17/21 Unknown Mononitrate ER] Previous Rx's Medication Instructions Recorded Last Taken Type carvediloL [Coreg] 6.25 mg PO BID #60 tablet 04/25/13 Unknown Rx Famotidine [Pepcid] 20 mg PO DAILY #30 tablet 08/20/21 Unknown Rx Hydralazine HCl 50 mg PO TID #90 tab 08/20/21 Unknown Rx NIFEdipine XL [Procardia Xl] 90 mg PO QDAY #60 tablet 08/20/21 Unknown Rx Allergies Allergy/AdvReac Type Severity Reaction Status Date / Time No Known Allergies Allergy Unverified 04/20/13 09:48 ED Review of Systems ROS: Stated complaint: NATALY Other details as noted in HPI Comment: All other systems reviewed and negative Constitutional: denies: chills, fever Respiratory: cough, orthopnea, shortness of breath, SOB with exertion, SOB at rest. denies: wheezing Cardiovascular: denies: chest pain Gastrointestinal: denies: abdominal pain, nausea, vomiting ED Past Medical Hx - Past Medical History Hx Hypertension: Yes Hx Congestive Heart Failure: No Hx Diabetes: No Hx Renal Disease: Yes Hx Asthma: No Hx COPD: No Additional medical history: Brugada Syndrome, ventral abdominal hernia - Social History Smoking Status: Never Smoker - Medications Home Medications: Home Medications Medication Instructions Recorded Confirmed Last Taken Type carvediloL [Coreg] 6.25 mg PO BID #60 tablet 04/25/13 08/18/21 Unknown Rx Clopidogrel [Plavix] 75 mg PO QDAY 08/17/21 08/17/21 Unknown History Doxazosin [Cardura] 4 mg PO BID 08/17/21 08/17/21 Unknown History Isosorbide Mononitrate [Isosorbide 60 mg PO QDAY 08/17/21 08/17/21 Unknown History Mononitrate ER] Famotidine [Pepcid] 20 mg PO DAILY #30 tablet 08/20/21 Unknown Rx Hydralazine HCl 50 mg PO TID #90 tab 08/20/21 Unknown Rx NIFEdipine XL [Procardia Xl] 90 mg PO QDAY #60 tablet 08/20/21 Unknown Rx ED Physical Exam - General Limitations: No Limitations General appearance: alert, in distress - Head Head exam: Present: atraumatic, normocephalic, normal inspection - Eye Eye exam: Present: normal appearance - ENT ENT exam: Present: normal exam, normal orophraynx, mucous membranes moist - Neck Neck exam: Present: normal inspection, full ROM. Absent: tenderness, meningismus - Respiratory Respiratory exam: Present: respiratory distress, rales, accessory muscle use, d ecreased breath sounds. Absent: wheezes, rhonchi - Cardiovascular Cardiovascular Exam: Present: regular rate, normal rhythm, normal heart sounds - GI/Abdominal GI/Abdominal exam: Present: soft, normal bowel sounds. Absent: distended, tenderness, guarding, rebound, rigid, organomegaly, mass, bruit, pulsatile mass, hernia - Extremities Exam Extremities exam: Present: normal inspection, full ROM, normal capillary refill. Absent: tenderness, calf tenderness - Back Exam Back exam: Present: normal inspection, full ROM. Absent: CVA tenderness (R), CVA tenderness (L) - Neurological Exam Neurological exam: Present: alert, oriented X3, CN II-XII intact, reflexes normal. Absent: motor sensory deficit - Psychiatric Psychiatric exam: Present: normal mood - Skin Skin exam: Present: warm, intact, normal color ED Course Vital Signs 09/08/21 09/08/21 09/08/21 20:23 21:25 21:31 Temperature 98.4 F Pulse Rate 84 75 76 Respiratory 26 H 22 23 Rate Blood Pressure Blood Pressure 207/130 [Right] O2 Sat by Pulse 94 100 Oximetry 09/08/21 09/08/21 09/08/21 21:45 22:01 22:10 Temperature Pulse Rate 77 85 79 Respiratory 27 H 24 28 H Rate Blood Pressure 199/111 205/109 187/102 Blood Pressure [Right] O2 Sat by Pulse 100 100 99 Oximetry 09/08/21 09/08/21 09/08/21 22:15 22:31 22:45 Temperature Pulse Rate 84 85 80 Respiratory 29 H 27 H 29 H Rate Blood Pressure 178/100 186/97 188/100 Blood Pressure [Right] O2 Sat by Pulse 100 100 99 Oximetry 09/08/21 09/08/21 09/08/21 23:01 23:15 23:31 Temperature Pulse Rate 79 76 77 Respiratory 24 26 H 26 H Rate Blood Pressure 187/102 185/105 193/100 Blood Pressure [Right] O2 Sat by Pulse 99 99 100 Oximetry ED Medical Decision Making - Lab Data Result diagrams: 09/08/21 21:49 09/08/21 21:49 - Radiology Data Radiology results: report reviewed - Medical Decision Making Patient is 50 years old male with history of end-stage renal disease on hemodialysis. Patient got dialyzed yesterday. Patient is also COPD with oxygen dependent at home. Patient brought to the emergency room via EMS for evaluation of shortness of breath and difficulty in breathing that started this morning. Patient denies any fever or chills. He denies any chest pain. Patient stated that he is compliant with his dialysis. Patient started on BiPAP. Chest x-ray showed pulmonary edema. Labs reviewed and is unremarkable except for his chronic kidney function impairment. Patient received hydralazine 20 mg IV for his elevated blood pressure. I discussed the patient with Dr. Gonzalez, he agreed to admit the patient to medical service for further management. I discussed patient with Dr. Kohler, he agreed to admit the patient to medical service for further management. Critical Care Time: Yes Critical care time in (mins) excluding proc time.: 35 Critical care attestation.: If time is entered above; I have spent that time in minutes in the direct care of this critically ill patient, excluding procedure time. ED Disposition Clinical Impression: End-stage renal disease needing dialysis, Volume overload Disposition: ADMITTED INPATIENT Is pt being admited?: Yes Condition: Stable
[2021-09-08 22:01] LABS: Basophils % (Auto) 0.6 % (0.0-1.8); Eosinophils # (Auto) 0.2 K/mm3 (0.0-0.4); Eosinophils % (Auto) 3.3 % (0.0-4.3); Hematocrit 27.5 % (35.5-45.6); Hemoglobin 8.8 gm/dl (11.8-15.2); Lymphocytes # (Auto) 0.4 K/mm3 (1.2-5.4); Mean Corpuscular HGB Conc 32 % (32-34); Mean Corpuscular Volume 86 fl (84-94); Monocytes # (Auto) 0.3 K/mm3 (0.0-0.8); Monocytes % (Auto) 4.7 % (0.0-7.3); Platelet Count 168 K/mm3 (140-440); Red Blood Count 3.19 M/mm3 (3.65-5.03)
[2021-09-08] MEDS ORDERED: LORazepam 2 MG/ML VIAL IV ONE (22:07)
[2021-09-08 22:35] LABS: INR 1.09 (0.87-1.13)
[2021-09-08 22:36] LABS: Partial Thromboplastin Time 31.3 Sec. (24.2-36.6)
--- NOTE | 2021-09-08 22:54 | XRay Report ---
CHEST 1 VIEW INDICATION / CLINICAL INFORMATION: Dyspnea. COMPARISON: Chest x-ray 08/17/2021 FINDINGS: SUPPORT DEVICES: Interval removal of hemodialysis catheter. HEART / MEDIASTINUM: Mild cardiomegaly stable. LUNGS / PLEURA: Increased interstitial markings in the mid chest and perihilar regions with additiona l airspace opacities bilaterally within the bases suggests volume overload and/or pulmonary edema. BONES: No significant osseous abnormality. ADDITIONAL FINDINGS: No significant additional findings. IMPRESSION: 1. Volume overload and/or pulmonary edema are suggested. Signer Name: Dougie Finnegan II, MD Signed: 09/08/2021 10:49 PM Workstation Name: [id number]
[2021-09-08] MEDS ORDERED: cloNIDine 0.1 MG TAB PO ONE (23:53)
[2021-09-09] MEDS ORDERED: MORPHINE 4 MG/1 ML INJ IV PRN (01:35)
[2021-09-09] MEDS ORDERED: ONDANSETRON 4 MG/2 ML INJ IV PRN (01:35)
[2021-09-09] MEDS ORDERED: ALBUTEROL 2.5 MG/3 ML NEBU IH PRN (01:35)
[2021-09-09] MEDS ORDERED: ACETAMINOPHEN 325 MG TAB PO PRN (01:35)
[2021-09-09] MEDS ORDERED: MORPHINE 2 MG/1 ML INJ IV PRN (01:35)
--- NOTE | 2021-09-09 01:42 | History and Physical Report ---
History of Present Illness Date of examination: 09/09/21 Date of admission: 09/09/21 Chief complaint: Dyspnea Respiratory distress History of present illness: 50 years old male with history of end-stage renal disease on hemodialysis and COPD was brought to the emergency room because of shortness of breath and respiratory distress. Patient got hemodialyzed yesterday. Patient brought to the emergency room via EMS for evaluation of shortness of breath and difficulty in breathing that started this morning. Patient denies any fever or chills. He denies any chest pain. Patient stated that he is compliant with his dialysis. In the emergency room patient is found to have volume overload. Subsequently patient was put on BiPAP and case was discussed with on-call nephrology who will see the patient and hemodialyzed the patient in the morning Past History Past Medical History: ESRD, hypertension, renal failure, other (Brugada Syndrome, ventral abdominal hernia) Past Surgical History: No surgical history Social history: no significant social history Family history: hypertension Medications and Allergies Allergies Allergy/AdvReac Type Severity Reaction Status Date / Time No Known Allergies Allergy Unverified 04/20/13 09:48 Home Medications Medication Instructions Recorded Confirmed Last Taken Type carvediloL [Coreg] 6.25 mg PO BID #60 tablet 04/25/13 08/18/21 Unknown Rx Clopidogrel [Plavix] 75 mg PO QDAY 08/17/21 08/17/21 Unknown History Doxazosin [Cardura] 4 mg PO BID 08/17/21 08/17/21 Unknown History Isosorbide Mononitrate [Isosorbide 60 mg PO QDAY 08/17/21 08/17/21 Unknown History Mononitrate ER] Famotidine [Pepcid] 20 mg PO DAILY #30 tablet 08/20/21 Unknown Rx Hydralazine HCl 50 mg PO TID #90 tab 08/20/21 Unknown Rx NIFEdipine XL [Procardia Xl] 90 mg PO QDAY #60 tablet 08/20/21 Unknown Rx Review of Systems All systems: negative Cardiovascular: shortness of breath, dyspnea on exertion Respiratory: cough, shortness of breath, dyspnea on exertion Exam - Constitutional Vitals: Temp Pulse Resp BP Pulse Ox 98.4 F 78 24 198/104 99 09/08/21 20:23 09/09/21 00:31 09/09/21 00:31 09/09/21 00:31 09/09/21 00:31 General appearance: Present: no acute distress, well-nourished - EENT Eyes: Present: PERRL ENT: hearing intact, clear oral mucosa - Neck Neck: Present: supple, normal ROM - Respiratory Respiratory effort: normal Respiratory: bilateral: diminished - Cardiovascular Heart Sounds: Present: S1 & S2. Absent: rub, click - Extremities Extremities: pulses symmetrical, No edema Peripheral Pulses: within normal limits - Abdominal General gastrointestinal: Present: soft, non-tender, non-distended, normal bowel sounds Male genitourinary: Present: normal - Integumentary Integumentary: Present: clear, warm, dry - Musculoskeletal Musculoskeletal: gait normal, strength equal bilaterally - Psychiatric Psychiatric: appropriate mood/affect, intact judgment & insight - Neurologic Neurologic: CNII-XII intact, moves all extremities HEART Score - HEART Score Troponin: Troponin T 0.093 ng/mL (0.00-0.029) H 09/08/21 21:49 Results - Labs CBC & Chem 7: 09/08/21 21:49 09/08/21 21:49 Labs: Laboratory Last Values WBC 7.2 K/mm3 (4.5-11.0) 09/08/21 21:49 RBC 3.19 M/mm3 (3.65-5.03) L 09/08/21 21:49 Hgb 8.8 gm/dl (11.8-15.2) L 09/08/21 21:49 Hct 27.5 % (35.5-45.6) L 09/08/21 21:49 MCV 86 fl (84-94) 09/08/21 21:49 MCH 28 pg (28-32) 09/08/21 21:49 MCHC 32 % (32-34) 09/08/21 21:49 RDW 18.0 % (13.2-15.2) H 09/08/21 21:49 Plt Count 168 K/mm3 (140-440) 09/08/21 21:49 Lymph % (Auto) 6.0 % (13.4-35.0) L 09/08/21 21:49 [place] % (Auto) 4.7 % (0.0-7.3) 09/08/21 21:49 Eos % (Auto) 3.3 % (0.0-4.3) 09/08/21 21:49 Baso % (Auto) 0.6 % (0.0-1.8) 09/08/21 21:49 Lymph # (Auto) 0.4 K/mm3 (1.2-5.4) L 09/08/21 21:49 [place] # (Auto) 0.3 K/mm3 (0.0-0.8) 09/08/21 21:49 Eos # (Auto) 0.2 K/mm3 (0.0-0.4) 09/08/21 21:49 Baso # (Auto) 0.0 K/mm3 (0.0-0.1) 09/08/21 21:49 Seg Neutrophils % 85.4 % (40.0-70.0) H 09/08/21 21:49 Seg Neutrophils # 6.2 K/mm3 (1.8-7.7) 09/08/21 21:49 PT 15.3 Sec. (12.2-14.9) H 09/08/21 21:49 INR 1.09 (0.87-1.13) 09/08/21 21:49 APTT 31.3 Sec. (24.2-36.6) 09/08/21 21:49 Sodium 138 mmol/L (137-145) 09/08/21 21:49 Potassium 3.9 mmol/L (3.6-5.0) 09/08/21 21:49 Chloride 98.1 mmol/L (98-107) 09/08/21 21:49 Carbon Dioxide 24 mmol/L (22-30) 09/08/21 21:49 Anion Gap 20 mmol/L 09/08/21 21:49 BUN 55 mg/dL (9-20) H 09/08/21 21:49 Creatinine 9.2 mg/dL (0.8-1.3) H 09/08/21 21:49 Estimated GFR 7 ml/min 09/08/21 21:49 BUN/Creatinine Ratio 6 % 09/08/21 21:49 Glucose 73 mg/dL (75-100) L 09/08/21 21:49 Lactic Acid 1.10 mmol/L (0.7-2.0) 09/08/21 21:49 Calcium 9.0 mg/dL (8.4-10.2) 09/08/21 21:49 Troponin T 0.093 ng/mL (0.00-0.029) H 09/08/21 21:49 - Imaging and Cardiology Chest x-ray: report reviewed Assessment and Plan VTE prophylaxis?: Chemical Plan of care discussed with patient/family: Yes - Patient Problems (1) End-stage renal disease needing dialysis Current Visit: Yes Status: Acute Plan to address problem: Admit the patient to the medical telemetry. Put the patient on cardiac diet. We also put the patient on BiPAP. DuoNeb by nebulizer every 4 hours. Albuterol via nebulizer every 4 hours as needed. We discussed the case with on-call nephrology for dialysis in the morning. Recheck BMP in the morning (2) Volume overload Current Visit: Yes Status: Acute Plan to address problem: Fluid restriction. We also put the patient on BiPAP. DuoNeb by nebulizer every 4 hours. Albuterol via nebulizer every 4 hours as needed. We discussed the case with on-call nephrology for dialysis in the morning. Recheck BMP in the morning (3) Hypertension Current Visit: No Status: Acute Plan to address problem: Coreg 6.25 mg p.o. twice daily. Cardura 4 mg p.o. twice daily. Hydralazine 50 mg p.o. 3 times daily. Procardia XL 90 mg p.o. daily (4) Pulmonary edema Current Visit: No Status: Acute Plan to address problem: Fluid restriction. We also put the patient on BiPAP. DuoNeb by nebulizer every 4 hours. Albuterol via nebulizer every 4 hours as needed. We discussed the case with on-call nephrology for dialysis in the morning. Recheck BMP in the morning (5) DVT prophylaxis Current Visit: No Status: Acute Plan to address problem: Heparin 5000 units subcu every 12 hours for DVT prophylaxis. Pepcid 20 mg p.o. twice daily for GI prophylaxis. Patient is a full code
[2021-09-09 02:36] LABS: Chol/HDL Ratio 1.72 %
[2021-09-09] MEDS ORDERED: hydrALAZINE 20 MG/1 ML INJ IV PRN ×2 (03:00→04:52)
[2021-09-09] MEDS: IPRATROPIUM/ALBUTEROL SULFATE 3 ML AMPUL.NEB IH SCH ×4 (03:31→20:46)
[2021-09-09] MEDS ORDERED: cloNIDine 0.1 MG TAB PO ONE (03:49)
[2021-09-09] MEDS ORDERED: cloNIDine 0.2 MG TAB PO PRN (04:52)
[2021-09-09 05:01] LABS: Calcium 9.4 mg/dL (8.4-10.2)
[2021-09-09] MEDS ORDERED: carvediloL 6.25 MG TAB PO SCH ×3 (06:00→10:54)
[2021-09-09] MEDS ORDERED: hydrALAZINE 25 MG TAB PO SCH (06:00)
[2021-09-09] MEDS ORDERED: NIFEdipine XL 90 MG TAB PO SCH ×3 (06:00→11:00)
[2021-09-09] MEDS: DOXAZOSIN 4 MG TAB PO SCH ×2 (06:58→21:48)
[2021-09-09] MEDS ORDERED: HEPARIN 10,000 UNITS/10 ML VIAL IV PRN (07:52)
[2021-09-09] MEDS ORDERED: SODIUM CHLORIDE 0.9% 100 ML IV PRN ×2 (07:52→17:00)
[2021-09-09] MEDS ORDERED: EPOETIN ALFA-EPBX 10,000 UNIT/1 ML VIAL SUB-Q PRN (07:52)
--- NOTE | 2021-09-09 08:14 | Progress Note ---
Assessment and Plan Assessment and plan: History of present illness: 50 years old male with history of end-stage renal disease on hemodialysis and COPD was brought to the emergency room because of shortness of breath and respiratory distress. Patient got hemodialyzed yesterday. Patient brought to the emergency room via EMS for evaluation of shortness of breath and difficulty in breathing that started this morning. Patient denies any fever or chills. He denies any chest pain. Patient stated that he is compliant with his dialysis. In the emergency room patient is found to have volume overload. Subsequently patient was put on BiPAP and case was discussed with on-call nephrology who will see the patient and hemodialyzed the patient in the morning Hospital Course: 09/09/2021: Home medication restarted, blood pressure control achieved. Currently on Venturi mask saturating 98%, will attempt to titrate oxygen down as patient sats tolerate. Patient to go for UF HD today with subsequent treatment tomorrow. Plan for dc tomorrow after HD. Assessment and Plan: #Hypertensive emergency - restart home medications: Doxazosin, Procardia, Coreg, hydralazine - avoid catapres if possible - hydralazine IV prn, labetalol IV prn - may require cardene gtt if po and prn IV meds do not control. #End-stage renal disease needing dialysis - Hemodialysis per nephrology, on [facility] schedule, compliant - patient OP nephro doc is Dr. Segovia, consulted - avoid nephrotoxic agents - monitor I/O's - renal adjust medications - consult nephrology - daily renal profile # Flash Pulmonary edema -Chest x-ray consistent with findings of pulmonary edema currently 98 % on venturi mask, titrate down to nc. -Likely resulting from poorly controlled bp. -Fluid restriction. - place on BiPAP. # Volume overload - Fluid restriction. #Anemia of CKD -Hemoglobin 8.8 -Epogen as deemed appropriate by nephrology # Hypertension Coreg 6.25 mg p.o. twice daily. Cardura 4 mg p.o. twice daily. Hydralazine 50 mg p.o. 3 times daily. Procardia XL 90 mg p.o. daily # DVT prophylaxis Heparin 5000 units subcu every 12 hours for DVT prophylaxis. Pepcid 20 mg p.o. twice daily for GI prophylaxis. Patient is a full code The high probability of a clinically significant, sudden or life threatening deterioration of the [multi] system(s) required my full and direct attention, intervention and personal management. The aggregate critical care time was [60] minutes. This time is in addition to time spent performing reported procedures but includes the following: [x] Data Review and interpretation [x] Patient assessment and monitoring of vital signs [x] Documentation [x] Medication orders and management History Interval history: Patient seen and evaluated on bedside encounter. No acute complaints. He states that he is compliant with his hemodialysis and all of his home antihypertensive medication. He states that he only takes 2 blood pressure medications labetalol and Procardia. Hospitalist Physical - Physical exam Narrative exam: Physical Exam: VITAL SIGNS: Reviewed. GENERAL: The patient appears normally developed, Vital signs as documented. HEAD: No signs of head trauma. EYES: Pupils are equal. Extraocular motions intact. EARS: Hearing grossly intact. MOUTH: Oropharynx is normal. NECK: No adenopathy, no JVD. CHEST: Chest with clear breath sounds bilaterally. No wheezes, rales, or rhonchi. CARDIAC: Regular rate and rhythm. S1 and S2, without murmurs, gallops, or rubs. VASCULAR: No Edema. Peripheral pulses normal and equal in all extremities. ABDOMEN: Soft, non tender and non distended. No rebound or guarding, and no masses palpated. Bowel Sounds normal. MUSCULOSKELETAL: Good range of motion of all major joints. Extremities without clubbing, cyanosis or edema. NEUROLOGIC EXAM: Alert and oriented x 4. no focal sensory or strength deficits. PSYCHIATRIC: Mood normal. SKIN: detail exam as documented in skin assessment - Constitutional Vitals: Temp Pulse Resp BP Pulse Ox 98.4 F 80 23 197/98 96 09/08/21 20:23 09/09/21 07:01 09/09/21 07:01 09/09/21 07:01 09/09/21 07:01 General appearance: Present: no acute distress, well-nourished HEART Score - HEART Score Troponin: Troponin T 0.083 ng/mL (0.00-0.029) H 09/09/21 01:03 Results - Labs CBC & Chem 7: 09/08/21 21:49 09/09/21 04:32 Labs: Laboratory Last Values WBC 7.2 K/mm3 (4.5-11.0) 09/08/21 21:49 RBC 3.19 M/mm3 (3.65-5.03) L 09/08/21 21:49 Hgb 8.8 gm/dl (11.8-15.2) L 09/08/21 21:49 Hct 27.5 % (35.5-45.6) L 09/08/21 21:49 MCV 86 fl (84-94) 09/08/21 21:49 MCH 28 pg (28-32) 09/08/21 21:49 MCHC 32 % (32-34) 09/08/21 21:49 RDW 18.0 % (13.2-15.2) H 09/08/21 21:49 Plt Count 168 K/mm3 (140-440) 09/08/21 21:49 Lymph % (Auto) 6.0 % (13.4-35.0) L 09/08/21 21:49 Stone % (Auto) 4.7 % (0.0-7.3) 09/08/21 21:49 Eos % (Auto) 3.3 % (0.0-4.3) 09/08/21 21:49 Baso % (Auto) 0.6 % (0.0-1.8) 09/08/21 21:49 Lymph # (Auto) 0.4 K/mm3 (1.2-5.4) L 09/08/21 21:49 Stone # (Auto) 0.3 K/mm3 (0.0-0.8) 09/08/21 21:49 Eos # (Auto) 0.2 K/mm3 (0.0-0.4) 09/08/21 21:49 Baso # (Auto) 0.0 K/mm3 (0.0-0.1) 09/08/21 21:49 Seg Neutrophils % 85.4 % (40.0-70.0) H 09/08/21 21:49 Seg Neutrophils # 6.2 K/mm3 (1.8-7.7) 09/08/21 21:49 PT 15.3 Sec. (12.2-14.9) H 09/08/21 21:49 INR 1.09 (0.87-1.13) 09/08/21 21:49 APTT 31.3 Sec. (24.2-36.6) 05/31/22 21:49 Sodium 136 mmol/L (137-145) L 09/09/21 04:32 Potassium 4.2 mmol/L (3.6-5.0) 09/09/21 04:32 Chloride 97.2 mmol/L (98-107) L 09/09/21 04:32 Carbon Dioxide 21 mmol/L (22-30) L 09/09/21 04:32 Anion Gap 22 mmol/L 09/09/21 04:32 BUN 62 mg/dL (9-20) H 09/09/21 04:32 Creatinine 9.8 mg/dL (0.8-1.3) H 09/09/21 04:32 Estimated GFR 7 ml/min 09/09/21 04:32 BUN/Creatinine Ratio 6 % 09/09/21 04:32 Glucose 97 mg/dL (75-100) 09/09/21 04:32 Lactic Acid 1.10 mmol/L (0.7-2.0) 09/08/21 21:49 Calcium 9.4 mg/dL (8.4-10.2) 09/09/21 04:32 Troponin T 0.083 ng/mL (0.00-0.029) H 09/09/21 01:03 Triglycerides 43 mg/dL (2-149) 09/09/21 01:03 Cholesterol 150 mg/dL (50-199) 09/09/21 01:03 LDL Cholesterol Direct 54 mg/dL (50-130) 09/09/21 01:03 HDL Cholesterol 87 mg/dL (40-59) H 09/09/21 01:03 Cholesterol/HDL Ratio 1.72 % 09/09/21 01:03 Active Medications - Current Medications Current Medications: Generic Name Dose Route Start Last Admin Trade Name Freq PRN Reason Stop Dose Admin Acetaminophen 650 mg 09/09/21 01:35 Acetaminophen 325 Mg Tab PO Q4H PRN Pain MILD(1-3)/Fever >100.5/BOWER Albuterol 2.5 mg 09/09/21 01:35 Albuterol 2.5 Mg/3 Ml Nebu IH Q3HRT PRN Shortness Of Breath Albuterol/Ipratropium 1 ampul 09/09/21 02:00 09/09/21 03:31 Ipratropium/Albuterol Sulfate 3 Ml Ampul.Neb IH 1 ampul Q6HRT [facility] Administration Carvedilol 6.25 mg 09/09/21 06:00 09/09/21 06:53 Carvedilol 6.25 Mg Tab PO 6.25 mg BID@0800,1700 [facility] Administration Clonidine HCl 0.2 mg 09/09/21 04:52 Clonidine 0.2 Mg Tab PO Q4H PRN Blood Pressure Clopidogrel Bisulfate 75 mg 09/09/21 10:00 Clopidogrel 75 Mg Tab PO QDAY [facility] Doxazosin Mesylate 4 mg 09/09/21 06:00 09/09/21 06:58 Doxazosin 4 Mg Tab PO 4 mg BID [facility] Administration Epoetin Bandar-epbx 10,000 unit 09/09/21 07:52 Epoetin Bandar-Epbx 10,000 Unit/1 Ml Vial SUB-Q MUKUL PRN hemodialysis Famotidine 20 mg 09/09/21 10:00 Famotidine 20 Mg Tab PO QAM [facility] Heparin Sodium (Porcine) 5,000 unit 09/09/21 10:00 Heparin 5,000 Unit/1 Ml Vial SUB-Q Q12HR [facility] Heparin Sodium (Porcine) 3,000 unit 09/09/21 07:52 Heparin 10,000 Units/10 Ml Vial IV MUKUL PRN hemodialysis Hydralazine HCl 10 mg 09/09/21 03:00 09/09/21 02:34 Hydralazine 20 Mg/1 Ml Inj IV 10 mg Q6H PRN Administration Blood Pressure Hydralazine HCl 100 mg 09/09/21 08:11 Hydralazine 25 Mg Tab PO Q8HR [facility] Sodium Chloride 100 mls @ 999 mls/hr 09/09/21 07:52 Nacl 0.9% IV MUKUL PRN Hypotension Isosorbide Mononitrate 60 mg 09/09/21 06:00 09/09/21 06:53 Isosorbide Mononitrate Er 60 Mg Tab PO 60 mg QDAY [facility] Administration Labetalol HCl 10 mg 09/09/21 08:09 Labetalol 20 Mg/4 Ml Inj IV Q4H PRN sbp>160 Morphine Sulfate 2 mg 09/09/21 01:35 Morphine 2 Mg/1 Ml Inj IV Q4H PRN Pain, Moderate (4-6) Morphine Sulfate 4 mg 09/09/21 01:35 Morphine 4 Mg/1 Ml Inj IV Q4H PRN Pain , Severe (7-10) Nifedipine 90 mg 09/09/21 06:00 09/09/21 06:54 Nifedipine Xl 90 Mg Tab PO 90 mg QDAY [facility] Administration Ondansetron HCl 4 mg 09/09/21 01:35 Ondansetron 4 Mg/2 Ml Inj IV Q8H PRN Nausea And Vomiting Sodium Chloride 10 ml 09/09/21 10:00 Sodium Chloride 0.9% 10 Ml Flush Syringe IV BID [facility] Sodium Chloride 10 ml 09/09/21 01:35 Sodium Chloride 0.9% 10 Ml Flush Syringe IV PRN PRN LINE FLUSH
--- NOTE | 2021-09-09 09:07 | Electrocardiograph Report ---
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
[2021-09-09] MEDS ORDERED: DOXAZOSIN 4 MG TAB PO SCH (10:00)
[2021-09-09] MEDS ORDERED: CLOPIDOGREL 75 MG TAB PO SCH (10:00)
[2021-09-09] MEDS: FAMOTIDINE 20 MG TAB PO SCH (10:04)
[2021-09-09] MEDS: HEPARIN 5,000 UNIT/1 ML VIAL SUB-Q SCH ×2 (10:04→21:46)
[2021-09-09] MEDS: hydrALAZINE 100 MG TAB PO SCH ×3 (10:04→21:48)
--- NOTE | 2021-09-09 10:43 | Consultation ---
History of Present Illness - Reason for Consult end stage renal disease (50yr M with h/o HTN, ESRD on HD at [facility] q mwf c/o SOB with NATALY requiring BIPAP. CXRR suggests Pulm Congestion) Past History Past Medical History: ESRD, hypertension, renal failure, other (Brugada Syndrome, ventral abdominal hernia) Past Surgical History: No surgical history Social history: no significant social history Family history: hypertension Medications and Allergies Allergies Allergy/AdvReac Type Severity Reaction Status Date / Time No Known Allergies Allergy Unverified 04/20/13 09:48 Home Medications Medication Instructions Recorded Confirmed Last Taken Type NIFEdipine XL [Procardia Xl] 90 mg PO QDAY #60 tablet 08/20/21 09/09/21 09/08/21 09:00 Rx Labetalol HCl [Labetalol 300mg TAB] 300 mg PO Q12H 09/09/21 09/09/21 09/08/21 09:00 History Active Meds: Active Medications Acetaminophen (Acetaminophen 325 Mg Tab) 650 mg PO Q4H PRN PRN Reason: Pain MILD(1-3)/Fever >100.5/BOWER Albuterol (Albuterol 2.5 Mg/3 Ml Nebu) 2.5 mg IH Q3HRT PRN PRN Reason: Shortness Of Breath Albuterol/Ipratropium (Ipratropium/Albuterol Sulfate 3 Ml Ampul.Neb) 1 ampul IH Q6HRT [facility] Last Admin: 09/09/21 08:23 Dose: 1 ampul Carvedilol (Carvedilol 6.25 Mg Tab) 6.25 mg PO BID@0800,1700 [facility] Last Admin: 09/09/21 06:53 Dose: 6.25 mg Clonidine HCl (Clonidine 0.2 Mg Tab) 0.2 mg PO Q4H PRN PRN Reason: Blood Pressure Clopidogrel Bisulfate (Clopidogrel 75 Mg Tab) 75 mg PO QDAY [facility] Last Admin: 09/09/21 10:04 Dose: 75 mg Doxazosin Mesylate (Doxazosin 4 Mg Tab) 4 mg PO BID [facility] Last Admin: 09/09/21 06:58 Dose: 4 mg Epoetin Bandar-epbx (Epoetin Bandar-Epbx 10,000 Unit/1 Ml Vial) 10,000 unit SUB-Q MUKUL PRN PRN Reason: hemodialysis Famotidine (Famotidine 20 Mg Tab) 20 mg PO QAM [facility] Last Admin: 09/09/21 10:04 Dose: 20 mg Heparin Sodium (Porcine) (Heparin 5,000 Unit/1 Ml Vial) 5,000 unit SUB-Q Q12HR [facility] Last Admin: 09/09/21 10:04 Dose: 5,000 unit Heparin Sodium (Porcine) (Heparin 10,000 Units/10 Ml Vial) 3,000 unit IV MUKUL PRN PRN Reason: hemodialysis Hydralazine HCl (Hydralazine 20 Mg/1 Ml Inj) 10 mg IV Q6H PRN PRN Reason: Blood Pressure Last Admin: 09/09/21 02:34 Dose: 10 mg Hydralazine HCl (Hydralazine 100 Mg Tab) 100 mg PO Q8HR [facility] Last Admin: 09/09/21 10:04 Dose: 100 mg Sodium Chloride (Nacl 0.9%) 100 mls @ 999 mls/hr IV MUKUL PRN PRN Reason: Hypotension Isosorbide Mononitrate (Isosorbide Mononitrate Er 60 Mg Tab) 60 mg PO QDAY [facility] Last Admin: 09/09/21 06:53 Dose: 60 mg Labetalol HCl (Labetalol 20 Mg/4 Ml Inj) 10 mg IV Q4H PRN PRN Reason: sbp>160 Morphine Sulfate (Morphine 2 Mg/1 Ml Inj) 2 mg IV Q4H PRN PRN Reason: Pain, Moderate (4-6) Morphine Sulfate (Morphine 4 Mg/1 Ml Inj) 4 mg IV Q4H PRN PRN Reason: Pain , Severe (7-10) Nifedipine (Nifedipine Xl 90 Mg Tab) 90 mg PO QDAY [facility] Last Admin: 09/09/21 06:54 Dose: 90 mg Ondansetron HCl (Ondansetron 4 Mg/2 Ml Inj) 4 mg IV Q8H PRN PRN Reason: Nausea And Vomiting Sodium Chloride (Sodium Chloride 0.9% 10 Ml Flush Syringe) 10 ml IV BID [facility] Last Admin: 09/09/21 10:04 Dose: 10 ml Sodium Chloride (Sodium Chloride 0.9% 10 Ml Flush Syringe) 10 ml IV PRN PRN PRN Reason: LINE FLUSH Review of Systems Cardiovascular: shortness of breath, no chest pain, no orthopnea, no palpitations Respiratory: shortness of breath, no cough Gastrointestinal: no abdominal pain, no nausea, no vomiting Exam - Vital Signs Vital signs: Vital Signs Temp Pulse Resp BP Pulse Ox 98.4 F 84 26 H 207/130 94 09/08/21 20:23 09/08/21 20:23 09/08/21 20:23 09/08/21 20:23 09/08/21 20:23 - General Appearance General appearance: other (Awake & responsive) EENT: PERRL Neck: Present: neck supple. Absent: JVD/HJR Respiratory: Rales Heart: regular, S1S2 Gastrointestinal: Present: other (Soft). Absent: tenderness Integumentary: no rash Neurologic: no focal deficit Psychiatric: mood/affect appropriate Additional exam: HD Access: Lt arm AVF Results - Lab Results 09/08/21 21:49 09/09/21 04:32 Most recent lab results Calcium 9.4 mg/dL (8.4-10.2) 09/09/21 04:32 Assessment and Plan Pulm Edema - UF on HD as tolerated today. Repeat Isolated UF in am ESRD - HD today with UF as above Uncontrolled HTN - Adjust meds for better control. Would not advise Clonidine in this pt with unclear compliance Thanks, will f/u with you
[2021-09-09] MEDS ORDERED: cefTRIAXone/NS 1 GM/50 ML 1 GM/50 ML BAG IV SCH (16:00)
[2021-09-09] MEDS ORDERED: AZITHROMYCIN 250 MG TAB PO SCH (16:00)
[2021-09-09] MEDS ORDERED: DEXAMETHASONE 4 MG TAB PO SCH (16:00)
[2021-09-09 16:14] LABS: Hepatitis B Surface Antigen Non-Reactive (Negative); Hepatitis C Virus Antibody Non-Reactive (NonReactive)
[2021-09-09] MEDS: carvediloL 25 MG TAB PO SCH (16:39)
[2021-09-09] MEDS: diphenhydrAMINE 50 MG/ML VIAL IV PRN (20:06)
[2021-09-09] MEDS ORDERED: ALBUTEROL 8.5 GM MDI INHALATION IH PRN (20:51)
[2021-09-09] MEDS: ALBUTEROL 8.5 GM MDI INHALATION IH SCH ×2 (21:00→23:23)
[2021-09-09] MEDS: NIFEdipine XL 60 MG TAB PO SCH (21:46)
[2021-09-10] MEDS: diphenhydrAMINE 50 MG/ML VIAL IV PRN ×2 (00:24→05:28)
[2021-09-10] MEDS: hydrALAZINE 100 MG TAB PO SCH ×2 (05:27→15:30)
[2021-09-10 06:00] LABS: Basophils % (Auto) 0.1 % (0.0-1.8); Eosinophils % (Auto) 0.1 % (0.0-4.3); Hematocrit 26.4 % (35.5-45.6); Hemoglobin 8.4 gm/dl (11.8-15.2); Lymphocytes # (Auto) 0.5 K/mm3 (1.2-5.4); Lymphocytes % (Auto) 9.2 % (13.4-35.0); Mean Corpuscular HGB Conc 32 % (32-34); Mean Corpuscular Volume 85 fl (84-94); Monocytes # (Auto) 0.4 K/mm3 (0.0-0.8); Monocytes % (Auto) 8.5 % (0.0-7.3); Platelet Count 168 K/mm3 (140-440); Red Cell Distribution Width 18.2 % (13.2-15.2)
[2021-09-10 06:08] LABS: Calcium 8.7 mg/dL (8.4-10.2)
[2021-09-10] MEDS: ALBUTEROL 8.5 GM MDI INHALATION IH SCH ×2 (08:18→08:30)
[2021-09-10] MEDS: NIFEdipine XL 60 MG TAB PO SCH (09:21)
[2021-09-10] MEDS: carvediloL 25 MG TAB PO SCH (09:22)
[2021-09-10] MEDS: HEPARIN 5,000 UNIT/1 ML VIAL SUB-Q SCH (09:22)
[2021-09-10] MEDS: FAMOTIDINE 20 MG TAB PO SCH (09:22)
[2021-09-10] MEDS: DOXAZOSIN 4 MG TAB PO SCH (09:25)
[2021-09-10] MEDS ORDERED: AZITHROMYCIN 250 MG TAB PO SCH (10:00)
[2021-09-10] MEDS ORDERED: ALBUTEROL 8.5 GM MDI INHALATION IH SCH (14:00)
--- NOTE | 2021-09-10 15:56 | Progress Note ---
Assessment and Plan Pulm Edema - Tolerated Isolated ESRD - HD in am HTN - F/u on meds as present Covid-19 Pneumonia - Unusual infection as pt had Vaccines with Booster & had Covid late last year. F/u ID recs Subjective Date of service: 09/10/21 Objective - Vital Signs Vital signs: Vital Signs - 12hr 09/10/21 09/10/21 09/10/21 04:00 04:40 05:00 Temperature 97.2 F L Pulse Rate 71 73 70 Pulse Rate [ Bilateral] Pulse Rate [ 71 From Monitor] Respiratory 17 24 Rate Respiratory Rate [Bilateral ] Respiratory Rate [Chest] Blood Pressure 139/67 140/78 O2 Sat by Pulse 98 99 Oximetry 09/10/21 09/10/21 09/10/21 06:00 07:00 08:00 Temperature 97.6 F Pulse Rate 71 72 76 Pulse Rate [ Bilateral] Pulse Rate [ From Monitor] Respiratory 17 31 H 22 Rate Respiratory Rate [Bilateral ] Respiratory Rate [Chest] Blood Pressure 142/78 144/85 151/86 O2 Sat by Pulse 100 99 100 Oximetry 09/10/21 09/10/21 09/10/21 08:17 08:18 08:24 Temperature Pulse Rate Pulse Rate [ 77 Bilateral] Pulse Rate [ From Monitor] Respiratory Rate Respiratory 14 Rate [Bilateral ] Respiratory Rate [Chest] Blood Pressure O2 Sat by Pulse 97 97 Oximetry 09/10/21 09/10/21 09/10/21 09:00 09:22 09:25 Temperature Pulse Rate 73 74 74 Pulse Rate [ Bilateral] Pulse Rate [ 71 From Monitor] Respiratory 20 Rate Respiratory Rate [Bilateral ] Respiratory Rate [Chest] Blood Pressure 145/82 O2 Sat by Pulse 100 Oximetry 09/10/21 09/10/21 09/10/21 10:00 11:00 12:00 Temperature Pulse Rate 72 63 64 Pulse Rate [ Bilateral] Pulse Rate [ From Monitor] Respiratory 21 16 18 Rate Respiratory Rate [Bilateral ] Respiratory Rate [Chest] Blood Pressure 147/79 146/83 142/78 O2 Sat by Pulse 100 100 100 Oximetry 09/10/21 09/10/21 09/10/21 13:00 14:00 15:26 Temperature Pulse Rate 62 66 Pulse Rate [ 74 Bilateral] Pulse Rate [ 71 From Monitor] Respiratory 16 15 Rate Respiratory 16 Rate [Bilateral ] Respiratory 16 Rate [Chest] Blood Pressure 126/66 111/70 O2 Sat by Pulse 100 100 Oximetry - General Appearance General appearance: other (Awake & alert) EENT: PERRL Neck: JVD Respiratory: Present: Rales Cardiology: regular, S1S2 Gastrointestinal: normal Neurologic: no focal deficit - Lab 09/10/21 05:21 09/10/21 05:21 Most recent lab results Calcium 8.7 mg/dL (8.4-10.2) 09/10/21 05:21 Phosphorus 3.90 mg/dL (2.5-4.5) D 09/10/21 05:21 Magnesium 2.00 mg/dL (1.7-2.3) 09/10/21 05:21 Medications & Allergies - Medications Allergies/Adverse Reactions: Allergies No Known Allergies Allergy (Unverified 04/20/13 09:48) Home Medications: Home Medications Medication Instructions Recorded Confirmed Last Taken Type NIFEdipine XL [Procardia Xl] 90 mg PO QDAY #60 tablet 08/20/21 09/09/21 09/08/21 09:00 Rx Labetalol HCl [Labetalol 300mg TAB] 300 mg PO Q12H 09/09/21 09/09/21 09/08/21 09:00 History Active Medications: Generic Name Dose Route Start Last Admin Trade Name Freq PRN Reason Stop Dose Admin Acetaminophen 650 mg 09/09/21 01:35 Acetaminophen 325 Mg Tab PO Q4H PRN Pain MILD(1-3)/Fever >100.5/BOWER Albuterol 2 puff 09/10/21 14:00 09/10/21 15:25 Albuterol 8.5 Gm Mdi Inhalation IH 2 inh TIDRT [facility] Administration Azithromycin 500 mg 09/10/21 10:00 09/10/21 09:20 Azithromycin 250 Mg Tab PO 09/13/21 10:01 500 mg QDAY [facility] Administration Protocol Carvedilol 25 mg 09/09/21 17:00 09/10/21 09:22 Carvedilol 25 Mg Tab PO 25 mg BID@0800,1700 [facility] Administration Dexamethasone 6 mg 09/09/21 16:00 09/09/21 16:37 Dexamethasone 4 Mg Tab PO 09/18/21 16:01 6 mg Q24H [facility] Administration Diphenhydramine HCl 25 mg 09/09/21 19:43 09/10/21 05:28 Diphenhydramine 50 Mg/Ml Vial IV 25 mg Q4H PRN Administration Itching Doxazosin Mesylate 4 mg 09/09/21 06:00 09/10/21 09:25 Doxazosin 4 Mg Tab PO 4 mg BID [facility] Administration Epoetin Bandar-epbx 10,000 unit 09/09/21 07:52 09/09/21 18:24 Epoetin Bandar-Epbx 10,000 Unit/1 Ml Vial SUB-Q 10,000 unit MUKUL PRN Administration hemodialysis Famotidine 20 mg 09/09/21 10:00 09/10/21 09:22 Famotidine 20 Mg Tab PO 20 mg QAM [facility] Administration Heparin Sodium (Porcine) 5,000 unit 09/09/21 10:00 09/10/21 09:22 Heparin 5,000 Unit/1 Ml Vial SUB-Q 5,000 unit Q12HR [facility] Administration Heparin Sodium (Porcine) 3,000 unit 09/09/21 07:52 Heparin 10,000 Units/10 Ml Vial IV MUKUL PRN hemodialysis Hydralazine HCl 10 mg 09/09/21 03:00 09/09/21 02:34 Hydralazine 20 Mg/1 Ml Inj IV 10 mg Q6H PRN Administration Blood Pressure Hydralazine HCl 100 mg 09/09/21 09:00 09/10/21 15:30 Hydralazine 100 Mg Tab PO Not Given Q8HR [facility] Ceftriaxone Sodium 1 gm in 50 mls @ 100 mls/hr 09/09/21 16:00 09/09/21 16:37 Rocephin/Ns 1 Gm/50 Ml IV 100 mls/hr Q24H [facility] Administration Protocol Sodium Chloride 100 mls @ 999 mls/hr 09/09/21 17:00 Nacl 0.9% IV MUKUL PRN Hypotension Isosorbide Mononitrate 60 mg 09/09/21 06:00 09/10/21 09:25 Isosorbide Mononitrate Er 60 Mg Tab PO 60 mg QDAY [facility] Administration Labetalol HCl 10 mg 09/09/21 08:09 Labetalol 20 Mg/4 Ml Inj IV Q4H PRN sbp>160 Morphine Sulfate 2 mg 09/09/21 01:35 Morphine 2 Mg/1 Ml Inj IV Q4H PRN Pain, Moderate (4-6) Morphine Sulfate 4 mg 06/01/22 01:35 Morphine 4 Mg/1 Ml Inj IV Q4H PRN Pain , Severe (7-10) Nifedipine 60 mg 09/09/21 22:00 09/10/21 09:21 Nifedipine Xl 60 Mg Tab PO 60 mg BID [facility] Administration Ondansetron HCl 4 mg 09/09/21 01:35 Ondansetron 4 Mg/2 Ml Inj IV Q8H PRN Nausea And Vomiting Sodium Chloride 10 ml 09/09/21 10:00 09/10/21 09:25 Sodium Chloride 0.9% 10 Ml Flush Syringe IV 10 ml BID [facility] Administration Sodium Chloride 10 ml 09/09/21 01:35 Sodium Chloride 0.9% 10 Ml Flush Syringe IV PRN PRN LINE FLUSH
[2021-09-10] MEDS ORDERED: SODIUM CHLORIDE 0.9% 100 ML IV PRN (16:00)
--- NOTE | 2021-09-10 16:20 | Discharge Summary ---
Providers - Providers Date of Admission: 09/09/21 01:35 Date of discharge: 09/10/21 Attending physician: WALLY FERREIRA MD 09/08/21 23:44 Consult to Physician [CONS] Stat Comment: Dr. Londono spoke with Dr. Zamora @ [id number] Consulting Provider: NILE ZAMORA Physician Instructions: Reason For Exam: End-stage renal disease needing dialysis Primary care physician: KATE GEIGER Hospitalization Reason for admission: shortness of breath Condition: Stable Hospital course: History of present illness: 50 years old male with history of end-stage renal disease on hemodialysis and COPD was brought to the emergency room because of shortness of breath and respiratory distress. Patient got hemodialyzed yesterday. Patient brought to the emergency room via EMS for evaluation of shortness of breath and difficulty in breathing that started this morning. Patient denies any fever or chills. He denies any chest pain. Patient stated that he is compliant with his dialysis. In the emergency room patient is found to have volume overload. Subsequently patient was put on BiPAP and case was discussed with on-call nephrology who will see the patient and hemodialyzed the patient in the morning Hospital Course: 09/09/2021: Home medication restarted, blood pressure control achieved. Currently on Venturi mask saturating 98%, will attempt to titrate oxygen down as patient sats tolerate. Patient to go for [facility] HD today with subsequent treatment tomorrow. Plan for dc tomorrow after HD. 09/10/2021: Patient blood pressure controlled. Received dialysis treatment today with approx 3L removed. He is currently on room air saturating in the upper 90's. Plan for discharge home. Prescriptions for azithromycin course, decadron course, hydralazine, coreg, procardia, imdur, and cardura sent to patient pharmacy. He is advised to remain complaint on hemodialysis and follow up with his early learning teacher as an outpatient. He is advised to follow up with his primary care physician in 3-5 days. He is also advised to self quarantine for 7-10 days if possible due to his coronavirus infection (positive on 09/09). Assessment and Plan: #Hypertensive emergency - restart home medications: Doxazosin, Procardia, Coreg, hydralazine - avoid catapres if possible - hydralazine IV prn, labetalol IV prn - may require cardene gtt if po and prn IV meds do not control. #End-stage renal disease needing dialysis - Hemodialysis per nephrology, on MWF schedule, compliant - patient OP nephro doc is Dr. Segovia, consulted - avoid nephrotoxic agents - monitor I/O's - renal adjust medications - consult nephrology - daily renal profile # Flash Pulmonary edema -Chest x-ray consistent with findings of pulmonary edema currently 98 % on venturi mask, titrate down to nc. -Likely resulting from poorly controlled bp. -Fluid restriction. - place on BiPAP. # Volume overload - Fluid restriction. #Anemia of CKD -Hemoglobin 8.8 -Epogen as deemed appropriate by nephrology # Hypertension Coreg 6.25 mg p.o. twice daily. Cardura 4 mg p.o. twice daily. Hydralazine 50 mg p.o. 3 times daily. Procardia XL 90 mg p.o. daily # DVT prophylaxis Heparin 5000 units subcu every 12 hours for DVT prophylaxis. Pepcid 20 mg p.o. twice daily for GI prophylaxis. Patient is a full code Disposition: 30 STILL A PATIENT Final Discharge Diagnosis (Prints w/discharge instructions): pulmonary edema, volume overload, coronavirus infection Time spent for discharge: 35 Core Measure Documentation - Palliative Care Palliative Care/ Comfort Measures: Not Applicable - Core Measures Any of the following diagnoses?: none Exam - Constitutional Vitals: Temp Pulse Resp BP Pulse Ox 97.5 F L 76 16 134/74 96 09/10/21 16:00 09/10/21 16:00 09/10/21 15:26 09/10/21 16:00 09/10/21 16:00 Plan Plan of Treatment: Patient blood pressure controlled. Received dialysis treatment today with approx 3L removed. He is currently on room air saturating in the upper 90's. Plan for discharge home. Prescriptions for azithromycin course, decadron course, hydralazine, coreg, procardia, imdur, and cardura sent to patient pharmacy. He is advised to remain complaint on hemodialysis and follow up with his early learning teacher as an outpatient. He is advised to follow up with his primary care physician in 3-5 days. He is also advised to self quarantine for 7-10 days if possible due to his coronavirus infection (positive on 09/09). Follow up with: KATE GEIGER MD [Primary Care Provider] - 3-5 Days Prescriptions: hydrALAZINE [Apresoline TAB] 100 mg PO Q8HR 30 Days #90 tab Doxazosin [Cardura] 4 mg PO BID 30 Days #30 tablet carvediloL [Coreg] 25 mg PO BID@0800,1700 30 Days #60 tablet dexAMETHasone [Decadron] 6 mg PO Q24H 8 Days #8 tablet ISOSORBIDE MONOnitrate [Imdur ER] 60 mg PO QDAY 30 Days #30 tablet NIFEdipine XL [Procardia Xl] 60 mg PO BID 30 Days #60 tablet Azithromycin [Zithromax TAB] 500 mg PO QDAY 3 Days #3 tablet
[2021-09-10 17:12] VITALS: BP 135/80
== END 2021-09-10 17:40 | disposition home or self-care (01) | DRG 304 ==
LOC: ED 20:22 → 4A 09-09 01:35 → IMCU 09-09 05:26
PROVIDERS: ADMIT Hospitalist; ATTEND Internal Medicine
PROC: 5A09357 Assistance with Respiratory Ventilation, Less than 24 Consecutive Hours, Continuous Positive Airway Pressure (ICD-10-PCS; 2021-09-08)
PROC: 5A1D70Z Performance of Urinary Filtration, Intermittent, Less than 6 Hours Per Day (ICD-10-PCS; principal; 2021-09-09)
PROC: 5A09357 Assistance with Respiratory Ventilation, Less than 24 Consecutive Hours, Continuous Positive Airway Pressure (ICD-10-PCS; 2021-09-09)
PROC: 5A1D70Z Performance of Urinary Filtration, Intermittent, Less than 6 Hours Per Day (ICD-10-PCS; 2021-09-10)
DX: I16.1 Hypertensive emergency (principal); N18.6 End stage renal disease; U07.1 COVID-19; J12.82 Pneumonia due to coronavirus disease 2019; I13.2 Hypertensive heart and chronic kidney disease with heart failure and with stage 5 chronic kidney disease, or end stage renal disease; D63.1 Anemia in chronic kidney disease; J44.9 Chronic obstructive pulmonary disease, unspecified; I50.9 Heart failure, unspecified; Z99.2 Dependence on renal dialysis; Z79.899 Other long term (current) drug therapy; Z82.49 Family history of ischemic heart disease and other diseases of the circulatory system
CPT/HCPCS: 36415; 71045; 80048; 80061; 80074; 82140; 82728; 83615; 83735; 84100; 84484; 85025; 85379; 85610; 85730; 87641; 93005; 94640; 94760; G0378; J0360; J0696; J0885; J1200; J1644; J2060; J8540; U0003

== ENCOUNTER 2021-11-16 01:00 | Emergency (ER) | payer MEDICARE, OTHER ==
[2021-11-16] MEDS ORDERED: MORPHINE 4 MG/1 ML INJ IV ONE (02:21)
[2021-11-16] MEDS ORDERED: FAMOTIDINE 20 MG/2 ML INJ IV ONE (02:21)
[2021-11-16] MEDS ORDERED: METOCLOPRAMIDE 10 MG/2 ML INJ IV ONE (02:22)
[2021-11-16] MEDS ORDERED: diphenhydrAMINE 50 MG/ML VIAL IV ONE (02:22)
[2021-11-16 02:57] LABS: Basophils # (Auto) 0.1 K/mm3 (0.0-0.1); Basophils % (Auto) 1.8 % (0.0-1.8); Eosinophils # (Auto) 0.6 K/mm3 (0.0-0.4); Eosinophils % (Auto) 9.2 % (0.0-4.3); Hematocrit 40.7 % (35.5-45.6); Hemoglobin 13.1 gm/dl (11.8-15.2); Lymphocytes # (Auto) 0.8 K/mm3 (1.2-5.4); Lymphocytes % (Auto) 12.7 % (13.4-35.0); Mean Corpuscular HGB Conc 32 % (32-34); Mean Corpuscular Volume 80 fl (84-94); Monocytes # (Auto) 0.9 K/mm3 (0.0-0.8); Platelet Count 223 K/mm3 (140-440); Red Blood Count 5.12 M/mm3 (3.65-5.03)
[2021-11-16 03:02] LABS: Red Cell Distribution Width 20.3 % (13.2-15.2)
[2021-11-16 03:09] LABS: Albumin 4.4 g/dL (3.9-5)
--- NOTE | 2021-11-16 03:14 | Cat Scan Report ---
CT ABDOMEN AND PELVIS WITHOUT CONTRAST INDICATION / CLINICAL INFORMATION: ABDOMINAL PAIN, N/V, DISTENSION R/O SBO. TECHNIQUE: Axial CT images were obtained through the abdomen and pelvis without IV contrast. All CT scans at this location are performed using CT dose reduction for ALARA by means of automated exposure control. COMPARISON: Chest radiograph from 09/08/2021 FINDINGS: LOWER CHEST: The heart is enlarged with mild bibasilar interstitial edema. LIVER: No significant abnormality GALLBLADDER/BILIARY TREE: No significant abnormality PANCREAS: No significant abnormality SPLEEN: No significant abnormality ADRENALS: No significant abnormality KIDNEYS/URETERS: Bilateral renal atrophy. No acute findings. No hydronephrosis. URINARY BLADDER: Bladder is partially decompressed, though grossly unremarkable. REPRODUCTIVE ORGANS: No significant abnormality STOMACH / BOWEL: Large colonic stool burden with small bowel feces sign. No evidence of localized bow el inflammation or obstruction. Normal appendix. LYMPH NODES: No significant adenopathy. VASCULATURE: Moderate atherosclerotic calcification without acute abnormality. OTHER: Mild mesenteric edema. No free air, free fluid, or focal fluid collection is identified. SKELETAL SYSTEM: No acute osseous findings. IMPRESSION: 1. No acute abnormality of the abdomen or pelvis. 2. Large colonic stool burden, consistent with constipation. No evidence of localized bowel inflammat ion or obstruction. 3. Findings of volume overload/CHF with cardiac enlargement and mild bibasilar interstitial edema. 4. Other incidental findings as above. Signer Name: Caden Lucio MD Signed: 11/16/2021 3:09 AM Workstation Name: [id number]
--- NOTE | 2021-11-16 04:45 | Emergency Department Report ---
ED N/V/D HPI - General Chief complaint: Nausea/Vomiting/Diarrhea Stated complaint: N/V Source: EMS Mode of arrival: Stretcher Limitations: No Limitations - History of Present Illness Initial comments: Patient is a 50-year-old -Italian male with a history of hypertension a nd ESRD on hemodialysis who presents to the ED with complaint of acute onset persistent diffuse abdominal pain with intractable nausea and vomiting and headache for the last 2 days. Patient states that in the last 12 hours his symptoms are worsened such that he has had multiple vomiting episodes with worsening headache. Patient denies dizziness, syncope, chest pain or shortness of breath, diarrhea, fever, chills, cough, sore throat, palpitations, change in vision, lightheadedness, hematemesis or hematochezia. MD complaint: nausea, vomiting, abdominal pain (Diffuse) -: days(s) (2) Description of Vomiting: food contents, watery, bilious Associated Abdominal Pain: Yes (Diffuse) Location: diffuse Radiation: none Severity: severe Pain Scale: 7 Quality: cramping, aching, sharp Consistency: constant Improves with: none Worsens with: vomiting Context: possible food poisoning Associated Symptoms: denies other symptoms, headaches, loss of appetite, malaise, nausea/vomiting. denies: myalgias, chest pain, cough, diaphoresis, fever/chills, rash, dysuria, shortness of breath, syncope, weakness - Related Data Home Medications Medication Instructions Recorded Confirmed Last Taken Labetalol HCl [Labetalol 300mg TAB] 300 mg PO Q12H 09/09/21 09/09/21 09/08/21 09:00 Previous Rx's Medication Instructions Recorded Last Taken Type NIFEdipine XL [Procardia Xl] 90 mg PO QDAY #60 tablet 08/20/21 09/08/21 09:00 Rx Azithromycin [Zithromax TAB] 500 mg PO QDAY 3 Days #3 tablet 09/10/21 Unknown Rx Doxazosin [Cardura] 4 mg PO BID 30 Days #30 tablet 09/10/21 Unknown Rx ISOSORBIDE MONOnitrate [Imdur ER] 60 mg PO QDAY 30 Days #30 tablet 09/10/21 Unknown Rx NIFEdipine XL [Procardia Xl] 60 mg PO BID 30 Days #60 tablet 09/10/21 Unknown Rx carvediloL [Coreg] 25 mg PO BID@0800,1700 30 Days #60 09/10/21 Unknown Rx tablet dexAMETHasone [Decadron] 6 mg PO Q24H 8 Days #8 tablet 09/10/21 Unknown Rx hydrALAZINE [Apresoline TAB] 100 mg PO Q8HR 30 Days #90 tab 09/10/21 Unknown Rx Dicyclomine [Bentyl] 20 mg PO Q6H PRN #30 tablet 11/16/21 Unknown Rx Famotidine [Pepcid] 20 mg PO BID #60 tablet 11/16/21 Unknown Rx Linaclotide [Linzess] 290 mcg PO DAILY #30 cap 11/16/21 Unknown Rx Ondansetron [Zofran Odt] 4 mg PO Q8HR PRN #20 tab.rapdis 11/16/21 Unknown Rx Allergies Allergy/AdvReac Type Severity Reaction Status Date / Time No Known Allergies Allergy Unverified 04/20/13 09:48 ED Review of Systems ROS: Stated complaint: N/V Other details as noted in HPI Constitutional: denies: chills, fever Eyes: denies: eye pain, eye discharge, vision change ENT: denies: ear pain, throat pain Respiratory: denies: cough, shortness of breath, wheezing Cardiovascular: denies: chest pain, palpitations Endocrine: no symptoms reported Gastrointestinal: abdominal pain, nausea, vomiting. denies: diarrhea Genitourinary: denies: urgency, dysuria Musculoskeletal: denies: back pain, joint swelling, arthralgia Skin: denies: rash, lesions Neurological: denies: headache, weakness, paresthesias Psychiatric: denies: anxiety, depression Hematological/Lymphatic: denies: easy bleeding, easy bruising ED Past Medical Hx - Past Medical History Previous Medical History?: Yes Hx Hypertension: Yes Hx Congestive Heart Failure: No Hx Diabetes: Yes Hx Renal Disease: Yes Hx Asthma: No Hx COPD: No Additional medical history: Brugada Syndrome, ventral abdominal hernia - Surgical History Past Surgical History?: Yes Additional Surgical History: left AV Graft - Social History Smoking Status: Current Every Day Smoker Substance Use Type: None - Medications Home Medications: Home Medications Medication Instructions Recorded Confirmed Last Taken Type NIFEdipine XL [Procardia Xl] 90 mg PO QDAY #60 tablet 08/20/21 09/09/21 09/08/21 09:00 Rx Labetalol HCl [Labetalol 300mg TAB] 300 mg PO Q12H 09/09/21 09/09/21 09/08/21 09:00 History Azithromycin [Zithromax TAB] 500 mg PO QDAY 3 Days #3 tablet 09/10/21 Unknown Rx Doxazosin [Cardura] 4 mg PO BID 30 Days #30 tablet 09/10/21 Unknown Rx ISOSORBIDE MONOnitrate [Imdur ER] 60 mg PO QDAY 30 Days #30 tablet 09/10/21 Unknown Rx NIFEdipine XL [Procardia Xl] 60 mg PO BID 30 Days #60 tablet 09/10/21 Unknown Rx carvediloL [Coreg] 25 mg PO BID@0800,1700 30 Days #60 09/10/21 Unknown Rx tablet dexAMETHasone [Decadron] 6 mg PO Q24H 8 Days #8 tablet 09/10/21 Unknown Rx hydrALAZINE [Apresoline TAB] 100 mg PO Q8HR 30 Days #90 tab 09/10/21 Unknown Rx Dicyclomine [Bentyl] 20 mg PO Q6H PRN #30 tablet 11/16/21 Unknown Rx Famotidine [Pepcid] 20 mg PO BID #60 tablet 11/16/21 Unknown Rx Linaclotide [Linzess] 290 mcg PO DAILY #30 cap 11/16/21 Unknown Rx Ondansetron [Zofran Odt] 4 mg PO Q8HR PRN #20 tab.rapdis 11/16/21 Unknown Rx ED Physical Exam - General Limitations: No Limitations General appearance: alert, in no apparent distress - Head Head exam: Present: atraumatic, normocephalic, normal inspection - Eye Eye exam: Present: normal appearance, PERRL, EOMI - ENT ENT exam: Present: normal exam, normal orophraynx, mucous membranes moist, TM's normal bilaterally, normal external ear exam - Neck Neck exam: Present: normal inspection, full ROM. Absent: tenderness - Respiratory Respiratory exam: Present: normal lung sounds bilaterally. Absent: respiratory distress, wheezes, rales, rhonchi, stridor, chest wall tenderness, accessory muscle use, decreased breath sounds, prolonged expiratory - Cardiovascular Cardiovascular Exam: Present: regular rate, normal rhythm, normal heart sounds. Absent: systolic murmur, diastolic murmur, rubs, gallop - GI/Abdominal GI/Abdominal exam: Present: soft, tenderness (diffuse), normal bowel sounds. Absent: guarding, hyperactive bowel sounds, hypoactive bowel sounds, o rganomegaly, mass - Extremities Exam Extremities exam: Present: normal inspection, full ROM, normal capillary refill. Absent: tenderness - Back Exam Back exam: Present: normal inspection, full ROM. Absent: tenderness, CVA tenderness (R), CVA tenderness (L), muscle spasm, paraspinal tenderness, vertebral tenderness - Neurological Exam Neurological exam: Present: alert, oriented X3, CN II-XII intact, normal gait, reflexes normal - Psychiatric Psychiatric exam: Present: normal affect, normal mood - Skin Skin exam: Present: warm, dry, intact, normal color. Absent: rash ED Course Vital Signs 11/16/21 01:18 Temperature 98.2 F Pulse Rate 90 Respiratory 18 Rate Blood Pressure 168/88 O2 Sat by Pulse 99 Oximetry ED Medical Decision Making - Lab Data Result diagrams: 11/16/21 02:35 11/16/21 02:35 - Radiology Data Radiology results: report reviewed, [place] [address] Cat Scan Report Signed Patient: CHRISTIE HENRIQUEZ MR#: [id number] : 1970 Acct:[id number] Age/Sex: 50 / M ADM Date: 11/16/21 Loc: ED Attending Dr: Ordering Physician: ALEM HALL Date of Service: 11/16/21 Procedure(s): CT abdomen pelvis wo con Accession Number(s): [id number] cc: ALEM HALL CT ABDOMEN AND PELVIS WITHOUT CONTRAST INDICATION / CLINICAL INFORMATION: ABDOMINAL PAIN, N/V, DISTENSION R/O SBO. TECHNIQUE: Axial CT images were obtained through the abdomen and pelvis without IV contrast. All CT scans at this location are performed using CT dose reduction for ALARA by means of automated exposure control. COMPARISON: Chest radiograph from 09/08/2021 FINDINGS: LOWER CHEST: The heart is enlarged with mild bibasilar interstitial edema. LIVER: No significant abnormality GALLBLADDER/BILIARY TREE: No significant abnormality PANCREAS: No significant abnormality SPLEEN: No significant abnormality ADRENALS: No significant abnormality KIDNEYS/URETERS: Bilateral renal atrophy. No acute findings. No hydronephrosis. URINARY BLADDER: Bladder is partially decompressed, though grossly unremarkable. REPRODUCTIVE ORGANS: No significant abnormality STOMACH / BOWEL: Large colonic stool burden with small bowel feces sign. No evidence of localized bowel inflammation or obstruction. Normal appendix. LYMPH NODES: No significant adenopathy. VASCULATURE: Moderate atherosclerotic calcification without acute abnormality. OTHER: Mild mesenteric edema. No free air, free fluid, or focal fluid collection is identified. SKELETAL SYSTEM: No acute osseous findings. IMPRESSION: 1. No acute abnormality of the abdomen or pelvis. 2. Large colonic stool burden, consistent with constipation. No evidence of localized bowel inflammation or obstruction. 3. Findings of volume overload/CHF with cardiac enlargement and mild bibasilar interstitial edema. 4. Other incidental findings as above. Signer Name: Nichelle Lucio MD Signed: 11/16/2021 3:09 AM Workstation Name: [id number] Transcribed By: NAYANA Dictated By: NICHELLE LUCIO MD Electronically Authenticated By: NICHELLE LUCIO MD Signed Date/Time: 11/16/21308 DD/ 2 TD/TT: Print - Medical Decision Making This is a 50-year-old -Italian male with a history of hypertension and ESRD on hemodialysis who presents to the ED with complaint of acute onset persistent diffuse abdominal pain with intractable nausea and vomiting and headache for the last 2 days. Patient states that in the last 12 hours his symptoms are worsened such that he has had multiple vomiting episodes with worsening headache. In the ED, patient is alert and oriented x3 and is not in any distress. Patient was treated in the ED for nausea and vomiting, also given pain medications. Lab test results were reviewed and are all nonactionable. Abdomen pelvis CT scan without contrast showed no acute abnormalities but inc idental finding of large colonic stool burden, consistent with constipation. No evidence of localized bowel inflammation or obstruction. Also showed findings of volume overload/CHF with cardiac enlargement and mild bibasilar interstitial edema which are consistent with the patient's ESRD condition. On reevaluation, patient's pain is well controlled medication. Patient nausea and vomiting also well controlled. Patient passed oral fluid challenge in the ED. Patient was also advised to maintain a clear liquid diet for 12 to 24 hours while taking medications. Patient was discharged home on medications and advised to follow- up with his primary care physician in 5 to 7 days for reevaluation or return to the ED immediately if symptoms get worse. - Differential Diagnosis Gastroenteritis; GERD; SBO; constipation; appendicitis; colitis; Critical care attestation.: If time is entered above; I have spent that time in minutes in the direct care of this critically ill patient, excluding procedure time. ED Disposition Clinical Impression: Nausea and vomiting in adult patient, Abdominal pain, generalized, Viral gastroenteritis Constipation Qualifiers: Constipation type: other constipation type Qualified Code(s): K59.09 - Other constipation Disposition: 01 HOME / SELF CARE / HOMELESS Is pt being admited?: No Does the pt Need Aspirin: No Condition: Stable Instructions: Viral Gastroenteritis, Adult, [id number], Nausea and Vomiting, Adult, [id number], Abdominal Pain, Adult, [id number], Constipation, Adult, [id number] Additional Instructions: All lab test results were reviewed and are all nonactionable. Abdomen pelvis CT scan without contrast showed large colonic stool burden, consistent with constipation. No evidence of localized bowel inflammation or obstruction. It also showed findings of volume overload/CHF with cardiac enlargement and mild bibasilar interstitial edema consistent with your chronic kidney disease. Therefore maintain a clear liquid diet for 12 to 24 hours, and plenty of fluids, take medication as needed for pain and nausea and vomiting as well as for constipation. Follow-up with your primary care physician in 7 to 10 days for reevaluation or return to the ED immediately if symptoms get worse. Prescriptions: Dicyclomine [Bentyl] 20 mg PO Q6H PRN #30 tablet PRN Reason: abdominal pain Linaclotide [Linzess] 290 mcg PO DAILY #30 cap Famotidine [Pepcid] 20 mg PO BID #60 tablet Ondansetron [Zofran Odt] 4 mg PO Q8HR PRN #20 tab.rapdis PRN Reason: Nausea Referrals: KATE GEIGER MD [Primary Care Provider] - 3-5 Days Time of Disposition: 04:48 Print Language: AFGHAN
[2021-11-16 05:20] VITALS: BP 179/96
== END 2021-11-16 05:21 | disposition home or self-care (01) ==
LOC: ED 01:00
DX: A08.4 Viral intestinal infection, unspecified (principal); K59.00 Constipation, unspecified; I10 Essential (primary) hypertension; E11.9 Type 2 diabetes mellitus without complications; F17.200 Nicotine dependence, unspecified, uncomplicated; Z79.899 Other long term (current) drug therapy
CPT/HCPCS: 36415; 74176; 80053; 83690; 85025; 96374; 96375; 99284; J1200; J2270; J2765; J3490

== ENCOUNTER 2021-11-27 05:38 | Inpatient (IN) | payer SELFPAY ==
--- NOTE | 2021-11-27 06:56 | Emergency Department Report ---
HPI - General Chief Complaint: Dyspnea/Respdistress Time Seen by Provider: 11/27/21 06:42 - HPI HPI: Room 22 Patient is a 51-year-old male present with chief complaint of shortness of breath. The patient states he went to sleep last night at 2200 in his normal state of health. Patient states he was awakened at 03: 00 this morning with shortness of breath. Patient denies chest pain or fever but admits to an occasional cough productive of clear sputum and sneezing this morning. Patient is normally on 2 L oxygen nasal cannula as needed at home. Here in the ED the patient states he does not feel short of breath while he is receiving supplemental O2 ED Past Medical Hx - Past Medical History Previous Medical History?: Yes Hx Hypertension: Yes Hx Diabetes: Yes Hx Renal Disease: Yes Additional medical history: Brugada Syndrome, ventral abdominal hernia - Surgical History Past Surgical History?: Yes Additional Surgical History: left AV Graft - Family History Family history: no significant - Social History Smoking Status: Former Smoker (None x20 years) Substance Use Type: None (Denies illicit drug use) - Medications Home Medications: Home Medications Medication Instructions Recorded Confirmed Last Taken Type NIFEdipine XL [Procardia Xl] 90 mg PO QDAY #60 tablet 08/20/21 09/09/21 09/08/21 09:00 Rx Labetalol HCl [Labetalol 300mg TAB] 300 mg PO Q12H 09/09/21 09/09/21 09/08/21 09:00 History Azithromycin [Zithromax TAB] 500 mg PO QDAY 3 Days #3 tablet 09/10/21 Unknown Rx Doxazosin [Cardura] 4 mg PO BID 30 Days #30 tablet 09/10/21 Unknown Rx ISOSORBIDE MONOnitrate [Imdur ER] 60 mg PO QDAY 30 Days #30 tablet 09/10/21 Unknown Rx NIFEdipine XL [Procardia Xl] 60 mg PO BID 30 Days #60 tablet 09/10/21 Unknown Rx carvediloL [Coreg] 25 mg PO BID@0800,1700 30 Days #60 09/10/21 Unknown Rx tablet dexAMETHasone [Decadron] 6 mg PO Q24H 8 Days #8 tablet 09/10/21 Unknown Rx hydrALAZINE [Apresoline TAB] 100 mg PO Q8HR 30 Days #90 tab 09/10/21 Unknown Rx Dicyclomine [Bentyl] 20 mg PO Q6H PRN #30 tablet 11/16/21 Unknown Rx Famotidine [Pepcid] 20 mg PO BID #60 tablet 11/16/21 Unknown Rx Linaclotide [Linzess] 290 mcg PO DAILY #30 cap 11/16/21 Unknown Rx Ondansetron [Zofran Odt] 4 mg PO Q8HR PRN #20 tab.rapdis 11/16/21 Unknown Rx ED Review of Systems ROS: Stated complaint: SOB Other details as noted in HPI Constitutional: denies: fever Eyes: denies: eye pain ENT: denies: throat pain Respiratory: cough, shortness of breath Cardiovascular: denies: chest pain Endocrine: no symptoms reported Gastrointestinal: denies: abdominal pain Genitourinary: denies: testicular pain Musculoskeletal: denies: back pain Neurological: headache Physical Exam - Physical Exam Vital Signs: Vital Signs 11/27/21 11/27/21 11/27/21 05:54 06:10 06:15 Temperature 98.6 F Pulse Rate 90 83 83 Respiratory 18 28 H 16 Rate Blood Pressure 202/112 185/105 O2 Sat by Pulse 97 100 100 Oximetry 11/27/21 11/27/21 11/27/21 06:26 06:31 06:45 Temperature Pulse Rate 79 83 Respiratory 28 H 21 15 Rate Blood Pressure 191/145 186/108 O2 Sat by Pulse 100 100 100 Oximetry Physical Exam: GENERAL: The patient is well-developed well-nourished male lying on stretcher not appearing to be in acute distress. [] HEENT: Normocephalic. Atraumatic. Extraocular motions are intact. Patient has moist mucous membranes. NECK: Supple. Trachea midline CHEST/LUNGS: Clear to auscultation. There is no respiratory distress noted. HEART/CARDIOVASCULAR: Regular. There is no tachycardia. There is no gallop rub or murmur. ABDOMEN: Abdomen is soft, nontender. Patient has normal bowel sounds. There is no abdominal distention. SKIN: There is no rash. There is no diaphoresis. NEURO: The patient is awake, alert, and oriented. The patient is cooperative. The patient has no focal neurologic deficits. The patient has normal speech. GCS 15 MUSCULOSKELETAL: There is no evidence of acute injury. ED Course Vital Signs 11/27/21 11/27/21 11/27/21 05:54 06:10 06:15 Temperature 98.6 F Pulse Rate 90 83 83 Respiratory 18 28 H 16 Rate Blood Pressure 202/112 185/105 O2 Sat by Pulse 97 100 100 Oximetry 11/27/21 11/27/21 11/27/21 06:26 06:31 06:45 Temperature Pulse Rate 79 83 Respiratory 28 H 21 15 Rate Blood Pressure 191/145 186/108 O2 Sat by Pulse 100 100 100 Oximetry - Consultations Consultation #1: 11/27/21 08:01 Nephrology paged 11/27/21 08:[address] Lisa LOPEZ Medical Decision Making - Lab Data Result diagrams: 11/27/21 06:54 11/27/21 06:54 Laboratory Tests 11/27/21 11/27/21 11/27/21 06:54 06:54 06:54 WBC 5.1 RBC 4.71 Hgb 12.1 Hct 37.8 MCV 80 L MCH 26 L MCHC 32 RDW 21.6 H Plt Count 203 Lymph % (Auto) 12.2 L [place] % (Auto) 15.6 H Eos % (Auto) 6.7 H Baso % (Auto) 1.6 Lymph # (Auto) 0.6 L [place] # (Auto) 0.8 Eos # (Auto) 0.3 Baso # (Auto) 0.1 Seg Neutrophils % 63.9 Seg Neutrophils # 3.3 PT 13.6 INR 0.94 Sodium 139 Potassium 5.0 Chloride 99.6 Carbon Dioxide 24 Anion Gap 20 BUN 73 H Creatinine 10.7 H Estimated GFR 6 BUN/Creatinine Ratio 7 Glucose 78 Calcium 9.8 Total Creatine Kinase 150 CK-MB (CK-2) 3.8 CK-MB (CK-2) Rel Index 2.5 Troponin T 0.098 H - EKG Data -: EKG Interpreted by Me EKG shows normal: sinus rhythm Rate: normal - EKG Data When compared to previous EKG there are: no significant change Interpretation: no acute changes - Radiology Data Radiology results: report reviewed (Chest x-ray), image reviewed (Chest x-ray) interpreted by me: Chest d-ana-afpnyltdntnk edema, no pneumothorax [facility] [address] [place] [address] XRay Report Signed Patient: CHRISTIE HENRIQUEZ MR#: [id number] : 1970 Acct:[id number] Age/Sex: 51 / M ADM Date: 11/27/21 Loc: ED Attending Dr: Ordering Physician: ELLE MORENO MD Date of Service: 11/27/21 Procedure(s): XR chest 1V ap Accession Number(s): [id number] cc: ELLE MORENO MD Fluoro Time In Minutes: CHEST 1 VIEW INDICATION: Shortness of breath. COMPARISON: 09/08/2021 FINDINGS: SUPPORT DEVICES: None. HEART: Within normal limits. LUNGS/PLEURA: Mild residual interstitial edema, previously moderate. No significant effusion. ADDITIONAL FINDINGS: None. IMPRESSION: 1. Lung findings as above. Signer Name: Jarvis Ames MD Signed: 11/27/2021 7:51 AM Workstation Name: [id number] Transcribed By: Dictated By: Jarvis Ames MD Electronically Authenticated By: Jarvis Ames MD Signed Date/Time: 11/27/21750 DD/ 9 TD/TT: - Differential Diagnosis Volume overload, pneumonia, bronchitis Critical care attestation.: If time is entered above; I have spent that time in minutes in the direct care of this critically ill patient, excluding procedure time. ED Disposition Clinical Impression: Volume overload, End-stage renal disease needing dialysis, Shortness of breath Disposition: ADMITTED INPATIENT Is pt being admited?: Yes Does the pt Need Aspirin: No Condition: Fair Time of Disposition: 08:32 (Care transferred to hospitalist Dr. Pan (discussed with Dr. Andrew))
[2021-11-27 07:06] LABS: Basophils # (Auto) 0.1 K/mm3 (0.0-0.1); Basophils % (Auto) 1.6 % (0.0-1.8); Eosinophils # (Auto) 0.3 K/mm3 (0.0-0.4); Eosinophils % (Auto) 6.7 % (0.0-4.3); Hematocrit 37.8 % (35.5-45.6); Hemoglobin 12.1 gm/dl (11.8-15.2); Lymphocytes # (Auto) 0.6 K/mm3 (1.2-5.4); Lymphocytes % (Auto) 12.2 % (13.4-35.0); Mean Corpuscular HGB Conc 32 % (32-34); Mean Corpuscular Volume 80 fl (84-94); Monocytes # (Auto) 0.8 K/mm3 (0.0-0.8); Monocytes % (Auto) 15.6 % (0.0-7.3); Platelet Count 203 K/mm3 (140-440); Red Blood Count 4.71 M/mm3 (3.65-5.03)
[2021-11-27 07:07] LABS: Red Cell Distribution Width 21.6 % (13.2-15.2)
[2021-11-27 07:15] LABS: INR 0.94 (0.87-1.13)
[2021-11-27 07:31] LABS: Creatine Kinase MB 3.8 ng/mL (0.0-4.0)
[2021-11-27 07:32] LABS: Calcium 9.8 mg/dL (8.4-10.2)
--- NOTE | 2021-11-27 07:55 | XRay Report ---
CHEST 1 VIEW INDICATION: Shortness of breath. COMPARISON: 09/08/2021 FINDINGS: SUPPORT DEVICES: None. HEART: Within normal limits. LUNGS/PLEURA: Mild residual interstitial edema, previously moderate. No significant effusion. ADDITIONAL FINDINGS: None. IMPRESSION: 1. Lung findings as above. Signer Name: Jarvis Ames MD Signed: 11/27/2021 7:51 AM Workstation Name: [id number]
[2021-11-27] MEDS ORDERED: ACETAMINOPHEN 325 MG TAB PO PRN (09:00)
[2021-11-27] MEDS ORDERED: NALOXONE 0.4 MG/1 ML INJ IV PRN (09:00)
[2021-11-27] MEDS ORDERED: NON-FORMULARY EACH (Labetalol Hcl [Labetalol 300mg Tab] 300 MG Tablet) PO SCH (09:00)
[2021-11-27] MEDS ORDERED: ALBUTEROL 2.5 MG/3 ML NEBU IH PRN (09:00)
--- NOTE | 2021-11-27 09:03 | History and Physical Report ---
History of Present Illness Date of examination: 11/27/21 Date of admission: 11/27/21 Chief complaint: Shortness of breath History of present illness: Patient is a 51-year-old male with history of end-stage renal disease on hemodialysis and COPD was brought to the emergency room because of shortness of breath and respiratory distress. Patient has been in the hospital multiple times and apparently has also been seen at a local hospital nearby. Unfortunately he follows up with multiple primary care doctors does not have adequate insurance coverage to have a consistent physician. He presented to the ED with EMS stated that he was awakened at 3 AM with shortness of breath. He states he uses oxygen at 2 L at home but reports that he did not feel he was working. On further questioning he said he was the EMS that said he was not working. He was placed on 4 L of oxygen and nephrology was consulted as he was supposed to have dialysis today. His admitting diagnosis suspected of flash pulmonary edema with resultant acute hypoxic respiratory failure. We will also noted to have significantly elevated blood pressure. He tells me that he has been tried on multiple blood pressure medications but they have the opposite effect multiple times on him. Systolic blood pressure was 190 Past History Past Medical History: anemia, ESRD, hypertension, hyperlipidemia Social history: single, full code. denies: smoking, alcohol abuse, IV drug use Family history: no significant family history Medications and Allergies Allergies Allergy/AdvReac Type Severity Reaction Status Date / Time No Known Allergies Allergy Unverified 04/20/13 09:48 Home Medications Medication Instructions Recorded Confirmed Last Taken Type NIFEdipine XL [Procardia Xl] 90 mg PO QDAY #60 tablet 08/20/21 09/09/21 09/08/21 09:00 Rx Labetalol HCl [Labetalol 300mg TAB] 300 mg PO Q12H 09/09/21 09/09/21 09/08/21 0 9:00 History Azithromycin [Zithromax TAB] 500 mg PO QDAY 3 Days #3 tablet 09/10/21 Unknown Rx Doxazosin [Cardura] 4 mg PO BID 30 Days #30 tablet 09/10/21 Unknown Rx ISOSORBIDE MONOnitrate [Imdur ER] 60 mg PO QDAY 30 Days #30 tablet 09/10/21 Unknown Rx NIFEdipine XL [Procardia Xl] 60 mg PO BID 30 Days #60 tablet 06/02/22 Unknown Rx carvediloL [Coreg] 25 mg PO BID@0800,1700 30 Days #60 09/10/21 Unknown Rx tablet dexAMETHasone [Decadron] 6 mg PO Q24H 8 Days #8 tablet 09/10/21 Unknown Rx hydrALAZINE [Apresoline TAB] 100 mg PO Q8HR 30 Days #90 tab 09/10/21 Unknown Rx Dicyclomine [Bentyl] 20 mg PO Q6H PRN #30 tablet 11/16/21 Unknown Rx Famotidine [Pepcid] 20 mg PO BID #60 tablet 11/16/21 Unknown Rx Linaclotide [Linzess] 290 mcg PO DAILY #30 cap 11/16/21 Unknown Rx Ondansetron [Zofran Odt] 4 mg PO Q8HR PRN #20 tab.rapdis 11/16/21 Unknown Rx Active Meds: Active Medications Acetaminophen (Acetaminophen 325 Mg Tab) 650 mg PO Q4H PRN PRN Reason: Pain MILD(1-3)/Fever >100.5/BOWER Albuterol (Albuterol 2.5 Mg/3 Ml Nebu) 2.5 mg IH Q3HRT PRN PRN Reason: Shortness Of Breath Albuterol/Ipratropium (Ipratropium/Albuterol Sulfate 3 Ml Ampul.Neb) 1 ampul IH Q6HRT KRISTIAN Arformoterol Tartrate (Arformoterol 15 Mcg/2 Ml Nebu) 15 mcg IH Q12HRT KRISTIAN Budesonide (Budesonide 0.5 Mg/2 Ml Nebu) 0.5 mg IH Q12HRT KRISTIAN Dicyclomine HCl (Dicyclomine 20 Mg Tab) 20 mg PO Q6H PRN PRN Reason: abdominal pain Famotidine (Famotidine 20 Mg/2 Ml Inj) 20 mg IV BID KRISTIAN Hydralazine HCl (Hydralazine 20 Mg/1 Ml Inj) 10 mg IV Q4HR PRN PRN Reason: Hypertension Hydralazine HCl (Hydralazine 100 Mg Tab) 100 mg PO Q8HR KRISTIAN Isosorbide Mononitrate (Isosorbide Mononitrate Er 60 Mg Tab) 60 mg PO QDAY KRISTIAN Miscellaneous Medication (Labetalol Hcl [Labetalol 300mg Tab]) 300 mg PO Q12H KRISTIAN Naloxone HCl (Naloxone 0.4 Mg/1 Ml Inj) 0.1 mg IV Q2MIN PRN PRN Reason: Res Rate </= 8 or 02 SAT < 92% Ondansetron HCl (Ondansetron 4 Mg/2 Ml Inj) 4 mg IV Q8H PRN PRN Reason: Nausea And Vomiting Ondansetron HCl (Ondansetron 4 Mg Odt Tab) 4 mg PO Q8HR PRN PRN Reason: Nausea Oxycodone/Acetaminophen (Oxycodone /Acetaminophen 5-325mg Tab) 1 tab PO Q6H PRN PRN Reason: Pain, Moderate (4-6) Senna (Sennosides 8.6 Mg Tab) 8.6 mg PO Q12HR KRISTIAN Sodium Chloride (Sodium Chloride 0.9% 10 Ml Flush Syringe) 10 ml IV BID KRISTIAN Sodium Chloride (Sodium Chloride 0.9% 10 Ml Flush Syringe) 10 ml IV PRN PRN PRN Reason: LINE FLUSH Review of Systems All systems: negative Constitutional: fatigue, lethargy Ears, nose, mouth and throat: no nose pain, no nasal congestion, no dysphagia, no swelling in mouth, no swelling in throat, no vertigo, no neck fullness/pressure Cardiovascular: orthopnea, rapid/irregular heart beat, edema, shortness of breath Respiratory: shortness of breath, dyspnea on exertion, congestion, home oxygen Gastrointestinal: abdominal pain, nausea, no vomiting, no diarrhea, no constipation, no change in bowel habits, no hematemesis, no coffee ground emesis Genitourinary Male: no dysuria, no hematuria, no flank pain, no discharge, no urinary frequency, no urinary hesitancy, no nocturia, no incontinence Rectal: no pain, no incontinence, no bleeding Musculoskeletal: no neck stiffness, no neck pain, no shooting arm pain, no arm numbness/tingling, no low back pain, no redness of joints, no hot joints, no muscle weakness, no muscle cramps, no myalgias, no atrophy, no fractures, no loss of height, no prior amputations Integumentary: no rash, no redness, no sores, no bullae, no darkening of skin, no brittle nails, no foot/leg ulcers, no onychomycosis Neurological: no transient paralysis, no weakness, no parathesias, no numbness, no headaches, no change in speech, no confusion, no changes in smell/taste, no motor disturbance, no double vision, no hearing difficulties Psychiatric: no memory loss, no sleep disturbances, no hypersomnia, no hopelessness, no difficulties concentrating, no confusion Endocrine: no heat intolerance, no polydipsia, no nocturia, no flushing, no proptosis, no thyroid mass, no palpatations Hematologic/Lymphatic: no easy bruising, no easy bleeding Allergic/Immunologic: no wheezing Exam - Physical Exam Narrative exam: VITAL SIGNS: Reviewed. GENERAL: The patient appears normally developed, in acute respiratory distress vital signs as documented. HEAD: No signs of head trauma. EYES: Pupils are equal. Extraocular motions intact. EARS: Hearing grossly intact. MOUTH: Oropharynx is normal. NECK: No adenopathy, no JVD. CHEST: Chest with crackles breath sounds bilaterally. Increased work of breathing with mild expiratory wheeze CARDIAC: Regular rate and rhythm. S1 and S2, without murmurs, gallops, or rubs. VASCULAR: AV graft to the left upper extremity no Edema. Peripheral pulses normal and equal in all extremities. ABDOMEN: Soft, non tender and non distended. No rebound or guarding, and no masses palpated. Bowel Sounds normal. MUSCULOSKELETAL: Good range of motion of all major joints. Extremities without clubbing, cyanosis or edema. NEUROLOGIC EXAM: Alert and oriented x 3 No focal sensory or strength deficits. Speech normal. Follows commands. PSYCHIATRIC: Mood anxious. SKIN: detail exam as documented in skin assessment - Constitutional Vitals: Temp Pulse Resp BP Pulse Ox 98.6 F 83 19 186/108 100 11/27/21 05:54 11/27/21 07:01 11/27/21 07:01 11/27/21 07:01 11/27/21 07:01 HEART Score - HEART Score Troponin: Troponin T 0.098 ng/mL (0.00-0.029) H 11/27/21 06:54 Results - Labs CBC & Chem 7: 11/27/21 06:54 11/27/21 06:54 Labs: Laboratory Last Values WBC 5.1 K/mm3 (4.5-11.0) 11/27/21 06:54 RBC 4.71 M/mm3 (3.65-5.03) 11/27/21 06:54 Hgb 12.1 gm/dl (11.8-15.2) 11/27/21 06:54 Hct 37.8 % (35.5-45.6) 11/27/21 06:54 MCV 80 fl (84-94) L 11/27/21 06:54 MCH 26 pg (28-32) L 11/27/21 06:54 MCHC 32 % (32-34) 11/27/21 06:54 RDW 21.6 % (13.2-15.2) H 11/27/21 06:54 Plt Count 203 K/mm3 (140-440) 11/27/21 06:54 Lymph % (Auto) 12.2 % (13.4-35.0) L 11/27/21 06:54 [place] % (Auto) 15.6 % (0.0-7.3) H 11/27/21 06:54 Eos % (Auto) 6.7 % (0.0-4.3) H 11/27/21 06:54 Baso % (Auto) 1.6 % (0.0-1.8) 11/27/21 06:54 Lymph # (Auto) 0.6 K/mm3 (1.2-5.4) L 11/27/21 06:54 [place] # (Auto) 0.8 K/mm3 (0.0-0.8) 11/27/21 06:54 Eos # (Auto) 0.3 K/mm3 (0.0-0.4) 11/27/21 06:54 Baso # (Auto) 0.1 K/mm3 (0.0-0.1) 11/27/21 06:54 Seg Neutrophils % 63.9 % (40.0-70.0) 11/27/21 06:54 Seg Neutrophils # 3.3 K/mm3 (1.8-7.7) 11/27/21 06:54 PT 13.6 Sec. (12.2-14.9) 11/27/21 06:54 INR 0.94 (0.87-1.13) 11/27/21 06:54 Sodium 139 mmol/L (137-145) 11/27/21 06:54 Potassium 5.0 mmol/L (3.6-5.0) 11/27/21 06:54 Chloride 99.6 mmol/L (98-107) 11/27/21 06:54 Carbon Dioxide 24 mmol/L (22-30) 11/27/21 06:54 Anion Gap 20 mmol/L 11/27/21 06:54 BUN 73 mg/dL (9-20) H 11/27/21 06:54 Creatinine 10.7 mg/dL (0.8-1.3) H 11/27/21 06:54 Estimated GFR 6 ml/min 11/27/21 06:54 BUN/Creatinine Ratio 7 % 11/27/21 06:54 Glucose 78 mg/dL (75-100) 11/27/21 06:54 Calcium 9.8 mg/dL (8.4-10.2) 11/27/21 06:54 Total Creatine Kinase 150 units/L (55-170) 11/27/21 06:54 CK-MB (CK-2) 3.8 ng/mL (0.0-4.0) 11/27/21 06:54 CK-MB (CK-2) Rel Index 2.5 (0-4) 11/27/21 06:54 Troponin T 0.098 ng/mL (0.00-0.029) H 11/27/21 06:54 Assessment and Plan Assessment and plan: Patient is a 51-year-old male with history of end-stage renal disease on hemodialysis and COPD was brought to the emergency room because of shortness of breath and respiratory distress. Patient has been in the hospital multiple times and apparently has also been seen at a local hospital nearby. Unfortunately he follows up with multiple primary care doctors does not have adequate insurance coverage to have a consistent physician. He presented to the ED with EMS stated that he was awakened at 3 AM with shortness of breath. He states he uses oxygen at 2 L at home but reports that he did not feel he was working. On further questioning he said he was the EMS that said he was not working. He was placed on 4 L of oxygen and nephrology was consulted as he was supposed to have dialysis today. His admitting diagnosis suspected of flash pulmonary edema with resultant acute hypoxic respiratory failure. We will also noted to have significantly elevated blood pressure. He tells me that he has been tried on multiple blood pressure medications but they have the opposite effect multiple times on him. Systolic blood pressure was 190 Assessment and Plan: #Hypertensive emergency - restart medications: Procardia, labetalol, hydralazine, isosorbide - hydralazine IV prn, #End-stage renal disease needing dialysis - Hemodialysis per nephrology, on MWF schedule, compliant - patient OP nephro doc is Dr. Segovia, consulted - avoid nephrotoxic agents - monitor I/O's - renal adjust medications - consult nephrology - daily renal profile # Flash Pulmonary edema -Chest x-ray consistent with findings of pulmonary edema although improved comp ared to yesterday currently 98 % on 5 L nasal cannula -Still with tripoding posturing. If no improvement will obtain pulmonary consult -Likely resulting from poorly controlled bp. -Fluid restriction. - # Volume overload - Fluid restriction. #Anemia of CKD -Hemoglobin 8.8 -Epogen as deemed appropriate by nephrology # Hypertension -As noted above # DVT prophylaxis Heparin 5000 units subcu every 12 hours for DVT prophylaxis. Pepcid 20 mg p.o. twice daily for GI prophylaxis. Patient is a full code Preventive care -Had extensive discussion with the patient about preventive management considering underlining end-stage renal disease anemia and hypertension. Patient verbalized understanding. Dietary restrictions discussed in detail. Also information on appropriate follow-up also done. Financial planning team consulted to assist the patient with information about insurance available. Patient reports that he is vaccinated against coronavirus The high probability of a clinically significant, sudden or life threatening deterioration of the [pulmonary, renal] system(s) required my full and direct attention, intervention and personal management. The aggregate critical care time was [90 minutes] minutes. This time is in addition to time spent performing reported procedures but includes the following: [x] Data Review and interpretation [x Patient assessment and monitoring of vital signs [x] Documentation [x] Medication orders and management Advance Directives: Yes (Full code. 35 minutes counseling) Plan of care discussed with patient/family: Yes
--- NOTE | 2021-11-27 09:14 | Consultation ---
History of Present Illness - Reason for Consult Consult date: 11/27/21 end stage renal disease - History of Present Illness The patient is a 50 YO male with history significant for Hypertension, DVT, Anemia, history of Brugada syndrome, ESRD on hemodialysis(MWF) and Medical non- compliance who presented to [facility] ED with c/o sob for 2 days. Associated symptoms include cough, orthopnea and wheezing. Admits to drinking excessive fluids. Patient denies any N, V, abd pain, fever, chills, rash, leg swelling, cp, dizziness, hemoptysis or weakness. He was last dialyzed 2 days ago. [facility] hospital admissions with similar presentation. All lab and imaging studies reviewed. Patient is currently on NC O2. Nephrology consulted for treatment of ESRD and volume overload. Past History Past Medical History: other (See HPI.) Medications and Allergies Allergies Allergy/AdvReac Type Severity Reaction Status Date / Time No Known Allergies Allergy Unverified 04/20/13 09:48 Home Medications Medication Instructions Recorded Confirmed Last Taken Type NIFEdipine XL [Procardia Xl] 90 mg PO QDAY #60 tablet 08/20/21 09/09/21 09/08/21 09:00 Rx Labetalol HCl [Labetalol 300mg TAB] 300 mg PO Q12H 09/09/21 09/09/21 09/08/21 09:00 History Azithromycin [Zithromax TAB] 500 mg PO QDAY 3 Days #3 tablet 09/10/21 Unknown Rx Doxazosin [Cardura] 4 mg PO BID 30 Days #30 tablet 09/10/21 Unknown Rx ISOSORBIDE MONOnitrate [Imdur ER] 60 mg PO QDAY 30 Days #30 tablet 09/10/21 Unknown Rx NIFEdipine XL [Procardia Xl] 60 mg PO BID 30 Days #60 tablet 09/10/21 Unknown Rx carvediloL [Coreg] 25 mg PO BID@0800,1700 30 Days #60 09/10/21 Unknown Rx tablet dexAMETHasone [Decadron] 6 mg PO Q24H 8 Days #8 tablet 09/10/21 Unknown Rx hydrALAZINE [Apresoline TAB] 100 mg PO Q8HR 30 Days #90 tab 09/10/21 Unknown Rx Dicyclomine [Bentyl] 20 mg PO Q6H PRN #30 tablet 11/16/21 Unknown Rx Famotidine [Pepcid] 20 mg PO BID #60 tablet 11/16/21 Unknown Rx Linaclotide [Linzess] 290 mcg PO DAILY #30 cap 11/16/21 Unknown Rx Ondansetron [Zofran Odt] 4 mg PO Q8HR PRN #20 tab.rapdis 11/16/21 Unknown Rx Active Meds: Active Medications Acetaminophen (Acetaminophen 325 Mg Tab) 650 mg PO Q4H PRN PRN Reason: Pain MILD(1-3)/Fever >100.5/BOWER Albuterol (Albuterol 2.5 Mg/3 Ml Nebu) 2.5 mg IH Q3HRT PRN PRN Reason: Shortness Of Breath Albuterol/Ipratropium (Ipratropium/Albuterol Sulfate 3 Ml Ampul.Neb) 1 ampul IH Q6HRT KRISTIAN Arformoterol Tartrate (Arformoterol 15 Mcg/2 Ml Nebu) 15 mcg IH Q12HRT KRISTIAN Budesonide (Budesonide 0.5 Mg/2 Ml Nebu) 0.5 mg IH Q12HRT KRISTIAN Dicyclomine HCl (Dicyclomine 20 Mg Tab) 20 mg PO Q6H PRN PRN Reason: abdominal pain Famotidine (Famotidine 20 Mg/2 Ml Inj) 20 mg IV BID KRISTIAN Hydralazine HCl (Hydralazine 20 Mg/1 Ml Inj) 10 mg IV Q4HR PRN PRN Reason: Hypertension Hydralazine HCl (Hydralazine 100 Mg Tab) 100 mg PO Q8HR [facility] Isosorbide Mononitrate (Isosorbide Mononitrate Er 60 Mg Tab) 60 mg PO QDAY KRISTIAN Miscellaneous Medication (Labetalol Hcl [Labetalol 300mg Tab]) 300 mg PO Q12H KRISTIAN Naloxone HCl (Naloxone 0.4 Mg/1 Ml Inj) 0.1 mg IV Q2MIN PRN PRN Reason: Res Rate </= 8 or 02 SAT < 92% Ondansetron HCl (Ondansetron 4 Mg/2 Ml Inj) 4 mg IV Q8H PRN PRN Reason: Nausea And Vomiting Ondansetron HCl (Ondansetron 4 Mg Odt Tab) 4 mg PO Q8HR PRN PRN Reason: Nausea Oxycodone/Acetaminophen (Oxycodone /Acetaminophen 5-325mg Tab) 1 tab PO Q6H PRN PRN Reason: Pain, Moderate (4-6) Senna (Sennosides 8.6 Mg Tab) 8.6 mg PO Q12HR KRISTIAN Sodium Chloride (Sodium Chloride 0.9% 10 Ml Flush Syringe) 10 ml IV BID KRISTIAN Sodium Chloride (Sodium Chloride 0.9% 10 Ml Flush Syringe) 10 ml IV PRN PRN PRN Reason: LINE FLUSH Exam - Vital Signs Vital signs: Vital Signs Temp Pulse Resp BP Pulse Ox 98.6 F 90 18 202/112 97 11/27/21 05:54 11/27/21 05:54 11/27/21 05:54 11/27/21 05:54 11/27/21 05:54 Results - Lab Results 11/27/21 06:54 11/27/21 06:54 Most recent lab results Calcium 9.8 mg/dL (8.4-10.2) 11/27/21 06:54 Assessment and Plan 1. ESRD: Patient is on maintenance hemodialysis, MWF schedule. Last outpatient HD 11/25. Hemodialysis: today. 2. FEN: Volume overload, UF with HD, monitor. Counseled to limit fluid intake. Monitor lytes and volume status. 3. Acute respiratory distress, POA: 2/2 Acute pulmonary edema in the setting of volume overload. Volume control thru HD. Supplemental O2, wean as tolerated. 4. Hx of DVT. 5. Hypertension: Continue home meds. Volume control thru HD. Follow BP. 6. Anemia, POA: Chronic. Epogen with HD as needed. Monitor. 7. Brugada syndrome. Subjective: Patient was seen and examined at the bedside. Examination: General appearance: well-developed, appears stated age, thin built, no distress noted, NC O2 HEENT: MATT Neck: trachea midline Respiratory: bibasal rales heard Heart: S1S2, no murmur Abdomen: soft, bowel sounds heard, NT, no palpable mass Integumentary: no obvious rash Neurologic: AO, non-focal Ext: no edema Hemodialysis access: L arm AVF
[2021-11-27] MEDS: FAMOTIDINE 20 MG/2 ML INJ IV SCH ×2 (09:29→22:00)
[2021-11-27] MEDS: hydrALAZINE 20 MG/1 ML INJ IV PRN (09:29)
[2021-11-27] MEDS ORDERED: SODIUM CHLORIDE 0.9% 100 ML IV PRN (10:00)
[2021-11-27] MEDS ORDERED: ONDANSETRON 4 MG ODT TAB PO PRN (10:00)
[2021-11-27] MEDS ORDERED: oxyCODONE /ACETAMINOPHEN 5-325MG TAB PO PRN (10:00)
[2021-11-27] MEDS ORDERED: HEPARIN 10,000 UNITS/10 ML VIAL IV PRN (10:00)
[2021-11-27] MEDS ORDERED: DICYCLOMINE 20 MG TAB PO PRN (10:00)
[2021-11-27] MEDS ORDERED: ONDANSETRON 4 MG/2 ML INJ IV PRN (10:00)
[2021-11-27] MEDS: SENNOSIDES 8.6 MG TAB PO SCH ×2 (10:52→22:00)
[2021-11-27 17:27] LABS: Hepatitis B Surface Antigen Non-Reactive (Negative); Hepatitis C Virus Antibody Non-Reactive (NonReactive)
[2021-11-27] MEDS: hydrALAZINE 100 MG TAB PO SCH ×2 (19:58→22:00)
[2021-11-27] MEDS: BUDESONIDE 0.5 MG/2 ML NEBU IH SCH (20:50)
[2021-11-27] MEDS: IPRATROPIUM/ALBUTEROL SULFATE 3 ML AMPUL.NEB IH SCH (20:50)
[2021-11-27] MEDS: ARFORMOTEROL 15 MCG/2 ML NEBU IH SCH (20:50)
[2021-11-27] MEDS: NIFEdipine XL 60 MG TAB PO SCH (22:00)
--- NOTE | 2021-11-27 22:47 | Electrocardiograph Report ---
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
[2021-11-28] MEDS: ARFORMOTEROL 15 MCG/2 ML NEBU IH SCH ×2 (00:13→08:11)
[2021-11-28] MEDS: hydrALAZINE 20 MG/1 ML INJ IV PRN (02:30)
[2021-11-28] MEDS: hydrALAZINE 100 MG TAB PO SCH ×2 (05:10→13:31)
[2021-11-28] MEDS: IPRATROPIUM/ALBUTEROL SULFATE 3 ML AMPUL.NEB IH SCH ×2 (08:11→14:45)
[2021-11-28] MEDS: BUDESONIDE 0.5 MG/2 ML NEBU IH SCH (08:11)
[2021-11-28] MEDS: NIFEdipine XL 60 MG TAB PO SCH (09:49)
[2021-11-28] MEDS: SENNOSIDES 8.6 MG TAB PO SCH (09:49)
[2021-11-28] MEDS ORDERED: FAMOTIDINE 20 MG/2 ML INJ IV SCH (10:00)
[2021-11-28 10:01] LABS: Basophils # (Auto) 0.1 K/mm3 (0.0-0.1); Basophils % (Auto) 2.9 % (0.0-1.8); Eosinophils # (Auto) 0.4 K/mm3 (0.0-0.4); Eosinophils % (Auto) 8.8 % (0.0-4.3); Hematocrit 37.8 % (35.5-45.6); Lymphocytes # (Auto) 0.8 K/mm3 (1.2-5.4); Lymphocytes % (Auto) 17.8 % (13.4-35.0); Mean Corpuscular HGB Conc 32 % (32-34); Mean Corpuscular Volume 80 fl (84-94); Monocytes # (Auto) 0.7 K/mm3 (0.0-0.8); Monocytes % (Auto) 15.3 % (0.0-7.3); Platelet Count 198 K/mm3 (140-440); Red Blood Count 4.71 M/mm3 (3.65-5.03)
[2021-11-28 10:17] LABS: Calcium 9.2 mg/dL (8.4-10.2)
--- NOTE | 2021-11-28 12:53 | Progress Note ---
Assessment and Plan 1. ESRD: Patient is on maintenance hemodialysis, MWF schedule. Last outpatient HD 11/25. Hemodialysis: 11/27. 2. FEN: Volume overload, UF with HD, monitor. Counseled to limit fluid intake. Monitor lytes and volume status. 3. Acute respiratory distress, POA: 2/2 Acute pulmonary edema in the setting of volume overload. Volume control thru HD. Supplemental O2, wean as tolerated. 4. Hx of DVT. 5. Hypertension: Continue home meds. Volume control thru HD. Follow BP. 6. Anemia, POA: Chronic. Epogen with HD as needed. Monitor. 7. Brugada syndrome. Subjective: Patient was seen and examined at the bedside. Doing better. Examination: General appearance: well-developed, appears stated age, thin built, no distress noted, NC O2 HEENT: MATT Neck: trachea midline Respiratory: ctab Heart: S1S2, no murmur Abdomen: soft, bowel sounds heard, NT, no palpable mass Integumentary: no obvious rash Neurologic: AO, non-focal Ext: no edema Hemodialysis access: L arm AVF Subjective Date of service: 11/28/21 Objective - Vital Signs Vital signs: Vital Signs - 12hr 11/28/21 11/28/21 11/28/21 02:05 02:21 02:30 Temperature 98 F Pulse Rate 78 75 Pulse Rate [ Posterior Throughout] Respiratory 18 20 Rate Respiratory Rate [Posterior Throughout] Blood Pressure 190/100 Blood Pressure 193/105 [Left] O2 Sat by Pulse 98 98 Oximetry 11/28/21 11/28/21 11/28/21 04:23 08:11 08:17 Temperature Pulse Rate 74 Pulse Rate [ 76 Posterior Throughout] Respiratory Rate Respiratory 18 Rate [Posterior Throughout] Blood Pressure Blood Pressure 176/97 [Left] O2 Sat by Pulse 100 Oximetry 11/28/21 11/28/21 11/28/21 09:49 09:50 11:17 Temperature 98.3 F Pulse Rate Pulse Rate [ Posterior Throughout] Respiratory 18 Rate Respiratory Rate [Posterior Throughout] Blood Pressure 171/97 171/97 165/96 Blood Pressure [Left] O2 Sat by Pulse Oximetry 11/28/21 11:56 Temperature Pulse Rate Pulse Rate [ Posterior Throughout] Respiratory Rate Respiratory Rate [Posterior Throughout] Blood Pressure Blood Pressure [Left] O2 Sat by Pulse 98 Oximetry - Lab 11/28/21 09:40 11/28/21 09:40 Most recent lab results Calcium 9.2 mg/dL (8.4-10.2) 11/28/21 09:40 Medications & Allergies - Medications Allergies/Adverse Reactions: Allergies No Known Allergies Allergy (Unverified 04/20/13 09:48) Home Medications: Home Medications Medication Instructions Recorded Confirmed Last Taken Type NIFEdipine XL [Procardia Xl] 90 mg PO QDAY #60 tablet 08/20/21 09/09/21 09/08/21 09:00 Rx Azithromycin [Zithromax TAB] 500 mg PO QDAY 3 Days #3 tablet 09/10/21 Unknown Rx Doxazosin [Cardura] 4 mg PO BID 30 Days #30 tablet 09/10/21 Unknown Rx NIFEdipine XL [Procardia Xl] 60 mg PO BID 30 Days #60 tablet 09/10/21 Unknown Rx carvediloL [Coreg] 25 mg PO BID@0800,1700 30 Days #60 09/10/21 Unknown Rx tablet Famotidine [Pepcid] 20 mg PO BID #60 tablet 11/16/21 Unknown Rx Linaclotide [Linzess] 290 mcg PO DAILY #30 cap 11/16/21 Unknown Rx Ondansetron [Zofran Odt] 4 mg PO Q8HR PRN #20 tab.rapdis 11/16/21 Unknown Rx Dicyclomine [Bentyl] 20 mg PO Q6H PRN tablet 11/28/21 Unknown Rx ISOSORBIDE MONOnitrate [Imdur ER] 60 mg PO QDAY tablet 11/28/21 Unknown Rx Labetalol HCl [Labetalol 300mg TAB] 300 mg PO Q8H 30 Days #90 11/28/21 Unknown Rx hydrALAZINE [Apresoline TAB] 100 mg PO Q8HR #90 tab 11/28/21 Unknown Rx Active Medications: Generic Name Dose Route Start Last Admin Trade Name Freq PRN Reason Stop Dose Admin Acetaminophen 650 mg 11/27/21 09:00 Acetaminophen 325 Mg Tab PO Q4H PRN Pain MILD(1-3)/Fever >100.5/BOWER Albuterol 2.5 mg 11/27/21 09:00 Albuterol 2.5 Mg/3 Ml Nebu IH Q3HRT PRN Shortness Of Breath Albuterol/Ipratropium 1 ampul 11/28/21 08:00 08/20/22 08:11 Ipratropium/Albuterol Sulfate 3 Ml Ampul.Neb IH 1 ampul TIDRT KRISTIAN Administration Arformoterol Tartrate 15 mcg 11/27/21 09:00 11/28/21 08:11 Arformoterol 15 Mcg/2 Ml Nebu IH 15 mcg Q12HRT KRISTIAN Administration Budesonide 0.5 mg 11/27/21 20:00 11/28/21 08:11 Budesonide 0.5 Mg/2 Ml Nebu IH 0.5 mg Q12HRT KRISTIAN Administration Dicyclomine HCl 20 mg 11/27/21 10:00 Dicyclomine 20 Mg Tab PO Q6H PRN abdominal pain Famotidine 10 mg 11/28/21 10:00 11/28/21 09:49 Famotidine 20 Mg/2 Ml Inj IV 10 mg BID KRISTIAN Administration Heparin Sodium (Porcine) 3,000 unit 11/27/21 10:00 Heparin 10,000 Units/10 Ml Vial IV MUKUL PRN hemodialysis Hydralazine HCl 10 mg 11/27/21 10:00 11/28/21 02:30 Hydralazine 20 Mg/1 Ml Inj IV 10 mg Q4HR PRN Administration Hypertension Hydralazine HCl 100 mg 11/27/21 14:00 11/28/21 05:10 Hydralazine 100 Mg Tab PO 100 mg Q8HR KRISTIAN Administration Sodium Chloride 100 mls @ 999 mls/hr 11/27/21 10:00 Nacl 0.9% IV MUKUL PRN Hypotension Isosorbide Mononitrate 60 mg 11/27/21 10:00 11/28/21 09:49 Isosorbide Mononitrate Er 60 Mg Tab PO 60 mg QDAY KRISTIAN Administration Labetalol HCl 100 mg 11/27/21 10:00 11/28/21 09:50 Labetalol 100 Mg Tab PO 100 mg BID KRISTIAN Administration Labetalol HCl 200 mg 11/27/21 10:00 11/28/21 09:50 Labetalol 200 Mg Tab PO 200 mg BID KRISTIAN Administration Naloxone HCl 0.1 mg 11/27/21 09:00 Naloxone 0.4 Mg/1 Ml Inj IV Q2MIN PRN Res Rate </= 8 or 02 SAT < 92% Nifedipine 60 mg 11/27/21 22:00 11/28/21 09:49 Nifedipine Xl 60 Mg Tab PO 60 mg BID KRISTIAN Administration Ondansetron HCl 4 mg 11/27/21 10:00 Ondansetron 4 Mg/2 Ml Inj IV Q8H PRN Nausea And Vomiting Ondansetron HCl 4 mg 11/27/21 10:00 Ondansetron 4 Mg Odt Tab PO Q8HR PRN Nausea Oxycodone/Acetaminophen 1 tab 11/27/21 10:00 11/27/21 23:43 Oxycodone /Acetaminophen 5-325mg Tab PO 1 tab Q6H PRN Administration Pain, Moderate (4-6) Senna 8.6 mg 11/27/21 10:00 11/28/21 09:49 Sennosides 8.6 Mg Tab PO 8.6 mg Q12HR KRISTIAN Administration Sodium Chloride 10 ml 11/27/21 10:00 11/28/21 09:50 Sodium Chloride 0.9% 10 Ml Flush Syringe IV 10 ml BID KRISTIAN Administration Sodium Chloride 10 ml 11/27/21 10:00 Sodium Chloride 0.9% 10 Ml Flush Syringe IV PRN PRN LINE FLUSH
--- NOTE | 2021-11-28 15:47 | Discharge Summary ---
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 Patient has been in the hospital multiple times and apparently has also been seen at a local hospital nearby. Unfortunately he follows up with multiple primary care doctors does not have adequate insurance coverage to have a consistent physician. He presented to the ED with EMS stated that he was awakened at 3 AM with shortness of breath. He states he uses oxygen at 2 L at home but reports that he did not feel he was working. On further questioning he said he was the EMS that said he was not working. He was placed on 4 L of oxygen and nephrology was consulted as he was supposed to have dialysis today. His admitting diagnosis suspected of flash pulmonary edema with resultant acute hypoxic respiratory failure. We will also noted to have significantly elevated blood pressure. He tells me that he has been tried on multiple blood pressure medications but they have the opposite effect multiple times on him. Systolic blood pressure was 190 11/28/2021 Blood pressure controlled Patient underwent hemodialysis last night Patient symptomatically better Assessment and Plan: #Hypertensive emergency -Medications adjusted and blood pressure controlled #End-stage renal disease needing dialysis - Hemodialysis per nephrology, on MWF schedule, compliant - patient OP nephro doc is Dr. Segovia, consulted - avoid nephrotoxic agents - monitor I/O's - renal adjust medications - consult nephrology - daily renal profile # Flash Pulmonary edema -Chest x-ray consistent with findings of pulmonary edema although improved compared to yesterday currently 98 % on 5 L nasal cannula -Still with tripoding posturing. If no improvement will obtain pulmonary consult -Likely resulting from poorly controlled bp. -Fluid restriction. - # Volume overload - Fluid restriction. #Anemia of CKD -Hemoglobin 8.8 -Epogen as deemed appropriate by nephrology # Hypertension -As noted above # DVT prophylaxis Heparin 5000 units subcu every 12 hours for DVT prophylaxis. Pepcid 20 mg p.o. twice daily for GI prophylaxis. Patient is a full code Preventive care -Had extensive discussion with the patient about preventive management considering underlining end-stage renal disease anemia and hypertension. Patient verbalized understanding. Dietary restrictions discussed in detail. Also information on appropriate follow-up also done. Financial planning team consulted to assist the patient with information about insurance available. Patient reports that he is vaccinated against coronavirus Disposition: HOME / SELF CARE / HOMELESS Final Discharge Diagnosis (Prints w/discharge instructions): Hypertensive emergency. Volume overload. Flash pulmonary edema. Anemia of CKD. End-stage renal disease Time spent for discharge: 36 minutes - Discharge Diagnoses (1) Acute hypoxemic respiratory failure Status: Acute (2) End-stage renal disease needing dialysis Status: Acute (3) Hypertensive emergency Status: Acute (4) DVT prophylaxis Status: Acute Core Measure Documentation - Palliative Care Palliative Care/ Comfort Measures: Not Applicable - Core Measures Any of the following diagnoses?: none Exam - Constitutional Vitals: Temp Pulse Resp BP Pulse Ox 98.3 F 76 18 165/96 98 11/28/21 11:17 11/28/21 14:45 11/28/21 14:45 11/28/21 11:17 11/28/21 11:56 General appearance: Present: no acute distress, well-nourished - EENT Eyes: Present: PERRL ENT: hearing intact, clear oral mucosa - Neck Neck: Present: supple, normal ROM - Respiratory Respiratory effort: normal Respiratory: bilateral: CTA - Cardiovascular Heart rate: 78 Rhythm: regular Heart Sounds: Present: S1 & S2. Absent: rub, click - Extremities Extremities: pulses symmetrical, No edema Peripheral Pulses: within normal limits - Abdominal General gastrointestinal: Present: soft, non-tender, non-distended, normal bowel sounds Male genitourinary: Present: normal - Integumentary Integumentary: Present: clear, warm, dry - Musculoskeletal Musculoskeletal: gait normal, strength equal bilaterally - Psychiatric Psychiatric: appropriate mood/affect, intact judgment & insight - Neurologic Neurologic: CNII-XII intact, moves all extremities Plan Activity: no restrictions Diet: renal Follow up with: JOSE RADER MD [Primary Care Provider] - 7 Days NILE ZAMORA MD [Staff Physician] - 7 Days
[2021-11-28 16:25] VITALS: BP 140/84
== END 2021-11-28 18:00 | disposition home or self-care (01) | DRG 189 ==
LOC: ED 05:38 → 3A 08:55
PROVIDERS: ADMIT Internal Medicine; ATTEND Internal Medicine
PROC: 5A1D70Z Performance of Urinary Filtration, Intermittent, Less than 6 Hours Per Day (ICD-10-PCS; principal; 2021-11-27)
DX: J96.01 Acute respiratory failure with hypoxia (principal); N18.6 End stage renal disease; J81.0 Acute pulmonary edema; I16.1 Hypertensive emergency; I12.0 Hypertensive chronic kidney disease with stage 5 chronic kidney disease or end stage renal disease; E11.22 Type 2 diabetes mellitus with diabetic chronic kidney disease; Z99.2 Dependence on renal dialysis; J44.9 Chronic obstructive pulmonary disease, unspecified; E78.5 Hyperlipidemia, unspecified; D63.1 Anemia in chronic kidney disease; I49.8 Other specified cardiac arrhythmias; Z87.891 Personal history of nicotine dependence
CPT/HCPCS: 36415; 71045; 80048; 80053; 80074; 82550; 82553; 84484; 85025; 85610; 93005; 94640; 94644; 94760; 99285; G0378; J3490; J0360